=== PATIENT | female | born 1965 | race Caucasian/White ===

== ENCOUNTER 2016-05-05 16:32 | Emergency (ER) | payer OTHER ==
[~2016-05-05] VITALS: Ht 162.6 cm; Wt 76.9 kg
[~2016-05-05 16:32] MED LIST: ATV/1 PO; CLON1TAB3 PO; ESCI10TA17 PO; FENO160T PO; FLNIN NAE; FOLI1TAB7 PO; GABA-113 PO; LAMO150T32 PO; NRN100 PO; TRAZ100T29 PO; VERA120C2 PO; WARF6TAB PO
[2016-05-05 16:36] VITALS: TEMP 36.9; Ht 162.6 cm; Wt 76.9 kg
[2016-05-05] MEDS ORDERED: FLUT0.15 NAE (16:58)
[2016-05-05] MEDS ORDERED: NARA2.5T2 PO (16:58)
[2016-05-05] MEDS ORDERED: METO25TA3 PO (16:58)
--- NOTE | 2016-05-05 17:16 | DIAGNOSTIC IMAGING REPORT ---
RIGHT ANKLE 3 VIEWS CLINICAL HISTORY: Right ankle pain. FINDINGS: 3 views of the right ankle are obtained. No prior studies are available for comparison at the time of dictation. Skeletal structures are well mineralized. No fracture is seen. The ankle mortise is intact. There is a small joint effusion. The overlying soft tissues are within normal limits. IMPRESSION: Small joint effusion. No acute bony abnormality is seen. Electronically signed by: Efra Hatch M.D. 05/05/2016 5:15 PM Dictated Date/Time: 05/05/2016 5:14 PM
--- NOTE | 2016-05-05 17:30 | EMERGENCY ROOM VISIT NOTE ---
History First contact with patient: 16:40 Chief Complaint: ANKLE PAIN Stated Complaint: POSSIBLY SPRAINED ANKLE History of Present Illness The patient is a 50 year old female who presents to the Emergency Room with complaints of right ankle pain. The patient reports that she stepped in a small hole 4 days ago, but did not have any significant discomfort at the time. She reports that the ankle is progressively worsening. She has also noticed swelling about the ankle. 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 The patient does report a prior history of a weak ankle since high school, and injures her ankle frequently. She has not followed up with orthopedics for her ankle. She rates her discomfort a 4 out of 10 with weightbearing. Review of Systems 10 system review was performed and was negative except for pertinent positives and negatives as indicated in history of present illness Past Medical/Surgical History Medical Problems: (1) Anticoagulation goal of INR 2 to 3 (2) Depression (3) Pulmonary embolism (4) Seizure disorder (5) Sinus tachycardia (6) Syncope and collapse Surgical Problems: (1) History of arthroscopic knee surgery (2) History of cholecystectomy (3) Status post partial hysterectomy Family History Cancer Diabetes mellitus FATHER Gallbladder disease Heart disease MOTHER Hypertension MOTHER BROTHER FATHER Social History Smoking Status: Never Smoker Alcohol Use: none Drug Use: none Housing Status: lives with family Occupation Status: unemployed Current/Historical Medications Scheduled Clonazepam (Klonopin), 1 MG PO HS Escitalopram (Lexapro), 30 MG PO DAILY Fenofibrate (Tricor), 160 MG PO DAILY Fluticasone Propionate (Nasal) (Flonase Allergy Relief), 2 SPRAYS LINETTE DAILY Folic Acid (Folvite), 1 MG PO DAILY Gabapentin (Gabapentin), 100 MG PO TID Gabapentin (Neurontin), 300 MG PO TID Lamotrigine (Lamictal), 150 MG PO BID Metoprolol Succ (Toprol Xl) (Toprol-Xl), 25 MG PO DAILY Trazodone Hcl (Trazodone), 200 MG PO HS Warfarin Sodium (Coumadin), 3 MG PO DAILY Scheduled PRN Lorazepam (Ativan), 1 MG PO TID PRN for Anxiety Tramadol (Ultram), 1-2 TAB PO Q4H PRN for Pain Miscellaneous Medications Naratriptan Hcl (Amerge), 2.5 MG PO Allergies Coded Allergies: Cephalexin (Verified Allergy, Unknown, ., 05/05/16) Penicillins (Verified Allergy, Unknown, ., 05/05/16) Sulfa Antibiotics (Verified Allergy, Unknown, Unknown rxn, 05/05/16) Physical Exam Vital Signs Date Time Temp Pulse Resp B/P Pulse Ox O2 Delivery O2 Flow Rate FiO2 05/05/16 16:36 36.9 72 18 125/72 93 Room Air Physical Exam CONSTITUTIONAL: Healthy and well nourished. Alert and oriented X 3 with positive affect. HEENT: Normocephalic, atraumatic. Pupils equal, round and reactive. NECK: Full active range of motion without discomfort. MUSCULOSKELETAL: Examination of the right ankle shows diffuse edema and tenderness over the posterior perineal tendon. Her pain is worsened when standing on her toes. She also has mild discomfort over the posterior tibial tendon as well. Negative anterior draw. No focal tenderness over the dorsal midfoot, metatarsals, phalanges, calcaneus or Achilles tendon. Pedal pulses are intact. INTEGUMENTARY: No rash or other significant dermatologic conditions noted. NEUROLOGIC: Right foot and toes are sensory intact. Medical Decision & Procedures ER Provider Diagnostic Interpretation: My interpretation of right ankle x-rays does not show any acute fractures, dislocation or ankle mortise asymmetry. Radiologist report is as follows: RIGHT ANKLE 3 VIEWS CLINICAL HISTORY: Right ankle pain. FINDINGS: 3 views of the right ankle are obtained. No prior studies are available for comparison at the time of dictation. Skeletal structures are well mineralized. No fracture is seen. The ankle mortise is intact. There is a small joint effusion. The overlying soft tissues are within normal limits. IMPRESSION: Small joint effusion. No acute bony abnormality is seen. ED Course Patient history and physical exam were performed. Nurse's notes were reviewed. The patient refused any analgesics while in the emergency department. An ice pack was applied. X-rays of the right ankle were normal. The patient was advised that her history and clinical exam findings are consistent with a posterior peroneal and tibial tendinitis. She was encouraged to intermittently apply ice to the ankle. A gel splint and crutches were applied. Tylenol as needed for baseline pain relief. The patient was provided a prescription for Ultram as needed for breakthrough pain. The patient has taken Ultram before in the past with good pain relief. The patient was encouraged to follow-up with orthopedics if symptoms are not improving within the next week. The patient was happy with plan of care, voiced understanding of all discharge instructions , and rated her pain a 3 out of 10 at the time of discharge. [facility] Drug Monitoring Program Search Results: patient reviewed within database, no issues identified Impression Primary Impression: Right ankle tendonitis Departure Information Prescriptions Tramadol (Ultram) 50 Mg Tab 1-2 TAB PO Q4H Y for Pain, #20 TAB For Initial Treatment Prov: Mauro Solares PA 05/05/16 Referrals Es Villegas M.D. (PCP) Patient Instructions My [facility]
[2016-05-05] MEDS ORDERED: TRAM-10 PO (17:33)
[2016-05-05 18:13] VITALS: BP 129/73; PULSE 75; O2SAT 95
[2016-05-27] MEDS ORDERED: LVQ750 PO (13:19)
[2016-05-27] MEDS ORDERED: LCTX PO (13:20)
== END 2016-05-05 18:16 | disposition home or self-care (01) ==
LOC: C.EDB 16:33 → C.EDD 18:16
DX: M65.871 Other synovitis and tenosynovitis, right ankle and foot (principal); F32.9 Major depressive disorder, single episode, unspecified; G40.909 Epilepsy, unspecified, not intractable, without status epilepticus; Z90.49 Acquired absence of other specified parts of digestive tract; Z79.01 Long term (current) use of anticoagulants

== ENCOUNTER 2016-05-23 15:57 | Observation (INO) | payer OTHER ==
[~2016-05-23] VITALS: Ht 165.1 cm; Wt 77.6 kg
[~2016-05-23 15:57] MED LIST changes: -FLNIN NAE; +FLUT0.15 NAE; +METO25TA3 PO; +NARA2.5T2 PO; +TRAM-10 PO; -VERA120C2 PO
[2016-05-23 16:39] LABS: BASO % 0.1 %; BASO ABS # 0.01 K/uL (0-0.2); COMPLETE YES; EOS % 1.4 %; HEMATOCRIT 40.1 % (37-47); IG% 0.1 %; LYMPH % 36.6 %; LYMPH ABS # 3.08 K/uL (1.2-3.4); MEAN CELL VOLUME 90.5 fL (80-100); MEAN CORPUSCULAR HEMOGLOBIN 30.9 pg (25-34); MEAN CORPUSCULAR HGB CONC 34.2 g/dl (32-36); MEAN PLATELET VOLUME 9.8 fL (7.4-10.4); MONO % 5.9 %; NEUT % 55.9 %; PLATELET COUNT 387 K/uL (130-400); RED BLOOD COUNT 4.43 M/uL (4.2-5.4); WHITE BLOOD COUNT 8.42 K/uL (4.8-10.8)
--- NOTE | 2016-05-23 16:45 | DIAGNOSTIC IMAGING REPORT ---
CHEST ONE VIEW PORTABLE CLINICAL HISTORY: Atypical chest pain COMPARISON STUDY: 08/29/2015 FINDINGS: The cardiac and mediastinal contours are normal. There is no evidence of focal pulmonary consolidation. There is no evidence of failure. No pleural effusions are visualized.[ IMPRESSION: No active disease in the chest. Electronically signed by: Vazquez Johnson M.D. 05/23/2016 4:44 PM Dictated Date/Time: 05/23/2016 4:44 PM
[2016-05-23 16:46] LABS: ALT/SGPT 26 U/L (12-78); BLOOD UREA NITROGEN 16 mg/dl (7-18); BUN/CREATININE RATIO 16.6 (10-20); CALCIUM 9.6 mg/dl (8.5-10.1); CARBON DIOXIDE 28 mmol/L (21-32); CHLORIDE 103 mmol/L (98-107); CREATININE 0.98 mg/dl (0.60-1.20); GLUCOSE 73 mg/dl (70-99); POTASSIUM 3.9 mmol/L (3.5-5.1); SODIUM 138 mmol/L (136-145)
[2016-05-23 16:47] LABS: AST/SGOT 22 U/L (15-37)
[2016-05-23 16:52] LABS: INR 2.3 (0.9-1.1); PARTIAL THROMBOPLASTIN RATIO 1.4; PROTHROMBIN TIME (PATIENT) 25.3 SECONDS (9.0-12.0)
[2016-05-23 16:56] LABS: PREG INTERNAL NEGATIVE QC NEG CLEAR BACKGROUND; PREG INTERNAL POSITIVE QC POS CONTROL LINE
[2016-05-23 16:58] LABS: ALKALINE PHOSPHATASE 61 U/L (45-117); CKMB/CK RATIO 1.1 (0-3.0)
[2016-05-23] MEDS ORDERED: WARF6TAB5 PO (17:47)
[2016-05-23] MEDS ORDERED: NITROGLYCERIN 0.4 MG SL PER TAB CHARGE SL STA (18:50)
[2016-05-23] MEDS ORDERED: SODIUM CHLORIDE 0.9% 1000ML 1,000 ML IV STA (18:51)
[2016-05-23] MEDS ORDERED: ACETAMINOPHEN 500 MG TAB PO STA (18:51)
[2016-05-23] MEDS ORDERED: CYCLOBENZAPRINE HCL 10 MG TAB PO PRN (19:45)
[2016-05-23] MEDS ORDERED: NON-FORMULARY MEDICATION (Naratriptan Hcl (Amerge) 2.5 MG) PO PRN (19:45)
[2016-05-23] MEDS ORDERED: NITROGLYCERIN 0.4 MG SL PER TAB CHARGE SL PRN (19:45)
[2016-05-23] MEDS ORDERED: ACETAMINOPHEN 325 MG TAB PO PRN (19:45)
[2016-05-23] MEDS ORDERED: ALBUTEROL HFA 8 GM INHALER INH PRN (19:45)
[2016-05-23] MEDS ORDERED: LORAZEPAM 1 MG TAB PO PRN (19:45)
[2016-05-23] MEDS ORDERED: CYCL10TA6 PO (20:04)
[2016-05-23] MEDS ORDERED: FLUT1INH INH (20:04)
[2016-05-23] MEDS ORDERED: ALBUAER INH (20:04)
[2016-05-23] MEDS ORDERED: OMEG10007 PO (20:04)
--- NOTE | 2016-05-23 20:35 | History and Physical ---
History & Physical Date & Time of Service: May 23, 2016 at 20:08 Chief Complaint: Chest Pain Primary Care Physician: Es Villegas M.D. History of Present Illness Source: patient This is a 50 y/o female with PMHx of chronic chest pain, h/o PE on Coumadin, seizures who presents to the ED c/o chest pain that began this afternoon. Pt reports that at noon today she was driving her car when she developed L sided chest pain that she describes as 7/10 "squeezing" pain that radiated to the L neck. Sxs were aggravated with exertion. Her sxs were assoc with diaphoresis and SOB. Pt did not take anything for her sxs and the chest pain persisted for 3.5 hrs before being relieved with nitro in the ED. Pt reports she has had chest pain in the past however this episode was more intense than past episodes. Patient has a FmHx of heart disease with her father having a CABG in his early 60s. Pt has no tobacco use history. After reviewing records, it is noted that patient has chronic chest discomfort. She had a negative cardiac catheterization in February 2015. Pt had an echo in February 2016 which revealed new grade II diastolic dysfunction. Pt was seen by cardiology (Dr. Varela) last month at which point her verapamil was switched to metoprolol. Pt denies fever/chills, palpitations, abd pain, N/V, bowel or bladder issues, LE edema ,calf pain, lightheadedness/dizziness. In the ED, vitals are stable. labs reviewed are unremarkable. Trop is negative and EKG shows no evidence of ischemia. CXR is negative. Pt received nitro on presentation to the ED which relieved her pain however the pain returned. Patient is currently c/o 3/10 chest discomfort. She is stable and will be admitted for further evaluation and treatment. Past Medical/Surgical History Medical Problems: (1) Anticoagulation goal of INR 2 to 3 Status: Chronic (2) Depression Status: Chronic (3) Migraine Status: Chronic (4) Pulmonary embolism Status: Chronic (5) Seizure disorder Status: Chronic (6) Sinus tachycardia Status: Chronic Surgical Problems: (1) History of arthroscopic knee surgery Status: Chronic (2) History of cholecystectomy Status: Chronic (3) Status post partial hysterectomy Status: Chronic Family History Cancer Diabetes mellitus FATHER Gallbladder disease Heart disease MOTHER Hypertension MOTHER BROTHER FATHER Social History Smoking Status: Never Smoker Alcohol Use: none Drug Use: none Immunizations History of Influenza Vaccine: Yes Influenza Vaccine Date: Dec 17, 2013 History of Tetanus Vaccine?: Yes Allergies Coded Allergies: Cephalexin (Verified Allergy, Unknown, ., 05/23/16) Penicillins (Verified Allergy, Unknown, ., 05/23/16) Sulfa Antibiotics (Verified Allergy, Unknown, Unknown rxn, 05/23/16) Home Medications Scheduled Clonazepam (Klonopin), 1 MG PO HS Escitalopram (Lexapro), 30 MG PO DAILY Fenofibrate (Tricor), 160 MG PO DAILY Fish Oil ([place]-3), 1 CAP PO BID Fluticasone Furoate-Vilanterol (Breo Ellipta), 1 DOSE INH DAILY Fluticasone Propionate (Nasal) (Flonase Allergy Relief), 2 SPRAYS LINETTE DAILY Folic Acid (Folvite), 1 MG PO DAILY Gabapentin (Gabapentin), 100 MG PO TID Gabapentin (Neurontin), 300 MG PO TID Lamotrigine (Lamictal), 150 MG PO BID Metoprolol Succ (Toprol Xl) (Toprol-Xl), 25 MG PO DAILY Trazodone Hcl (Trazodone), 200 MG PO HS Warfarin Sod (Jantoven), 6 MG PO WK Warfarin Sodium (Coumadin), 3 MG PO DAILY Scheduled PRN Albuterol Sulfate (Proventil Hfa), 2 PUFFS INH Q4H PRN for SOB/Wheezing Cyclobenzaprine Hcl (Flexeril), 10 MG PO BID PRN for Muscle Spasms Lorazepam (Ativan), 1 MG PO TID PRN for Anxiety Naratriptan Hcl (Amerge), 2.5 MG PO DAILY PRN for Pain Review of Systems Constitutional: No chills, No fatigue, No fever, No sweats, No weakness Eyes: No worsening of vision ENT: No hearing loss Respiratory: + shortness of breath (resolved), No cough, No dyspnea at rest Cardiovascular: + chest pain, No claudication, No edema, No palpitations Abdomen: No constipation, No diarrhea, No nausea, No pain, No vomiting Musculoskeletal: No calf pain, No swelling Genitourinary - Female: No dysuria Neurologic: No weakness Psychiatric: No depression symptoms Endocrine: No fatigue Hematologic / Lymphatic: No abnormal bleeding/bruising Integumentary: No new/changing skin lesions Physical Exam Vital Signs Date Time Temp Pulse Resp B/P Pulse Ox O2 Delivery O2 Flow Rate FiO2 05/23/16 19:29 111/78 05/23/16 19:07 55 16 95 Room Air 05/23/16 18:59 133/83 05/23/16 18:37 60 18 96 05/23/16 18:32 61 18 95 Room Air 05/23/16 18:29 128/81 05/23/16 18:27 59 17 95 Room Air 05/23/16 18:24 125/84 05/23/16 18:22 59 25 95 Room Air 05/23/16 18:17 61 17 94 05/23/16 18:12 58 13 94 05/23/16 18:07 58 14 92 05/23/16 18:02 57 12 94 05/23/16 17:59 120/83 05/23/16 17:57 56 12 93 05/23/16 17:52 57 11 94 05/23/16 17:47 59 19 97 05/23/16 17:42 57 12 93 05/23/16 17:37 59 16 90 05/23/16 17:32 70 23 99 05/23/16 17:29 123/81 05/23/16 17:27 69 26 95 05/23/16 17:22 60 14 97 05/23/16 17:17 58 10 95 05/23/16 17:12 59 17 95 05/23/16 17:07 57 19 94 05/23/16 17:02 57 12 93 05/23/16 16:59 133/82 05/23/16 16:57 58 13 95 05/23/16 16:52 59 13 97 05/23/16 16:47 64 12 94 05/23/16 16:42 74 16 98 05/23/16 16:37 62 16 96 05/23/16 16:32 65 18 97 05/23/16 16:29 133/89 05/23/16 16:27 60 12 93 05/23/16 16:24 100 Room Air 05/23/16 16:22 63 19 95 05/23/16 16:21 100 Room Air 05/23/16 16:18 63 05/23/16 16:17 61 18 97 05/23/16 16:11 134/79 05/23/16 16:04 36.7 89 18 100 Room Air 05/23/16 16:04 99 Room Air 05/23/16 16:04 100 General Appearance: WD/WN, no apparent distress, + pertinent finding (Pt is laying in bed with sister at bedside ) Head: normocephalic, atraumatic Eyes: normal inspection ENT: hearing grossly normal Neck: supple Respiratory/Chest: chest non-tender, lungs clear, normal breath sounds, no respiratory distress Cardiovascular: regular rate, rhythm, no edema, no murmur Abdomen/GI: normal bowel sounds, non tender, soft Back: normal inspection Extremities/Musculoskelatal: normal inspection, no calf tenderness, no pedal edema Neurologic/Psych: alert, normal mood/affect, oriented x 3 Skin: normal color, warm/dry Diagnostics Laboratory Results Results Past 24 Hours Test 05/23/16 16:00 05/23/16 16:26 Range/Units White Blood Count 8.42 4.8-10.8 K/uL Red Blood Count 4.43 4.2-5.4 M/uL Hemoglobin 13.7 12.0-16.0 g/dL Hematocrit 40.1 37-47 % Mean Corpuscular Volume 90.5 80-100 fL Mean Corpuscular Hemoglobin 30.9 25-34 pg Mean Corpuscular Hemoglobin Concent 34.2 32-36 g/dl Platelet Count 387 130-400 K/uL Mean Platelet Volume 9.8 7.4-10.4 fL Neutrophils (%) (Auto) 55.9 % Lymphocytes (%) (Auto) 36.6 % Monocytes (%) (Auto) 5.9 % Eosinophils (%) (Auto) 1.4 % Basophils (%) (Auto) 0.1 % Neutrophils # (Auto) 4.70 1.4-6.5 K/uL Lymphocytes # (Auto) 3.08 1.2-3.4 K/uL Monocytes # (Auto) 0.50 0.11-0.59 K/uL Eosinophils # (Auto) 0.12 0-0.5 K/uL Basophils # (Auto) 0.01 0-0.2 K/uL RDW Standard Deviation 43.7 36.4-46.3 fL RDW Coefficient of Variation 13.2 11.5-14.5 % Immature Granulocyte % (Auto) 0.1 % Immature Granulocyte # (Auto) 0.01 0.00-0.02 K/uL Prothrombin Time 25.3 9.0-12.0 SECONDS Prothromb Time International Ratio 2.3 0.9-1.1 Activated Partial Thromboplast Time 36.5 21.0-31.0 SECONDS Partial Thromboplastin Ratio 1.4 Sodium Level 138 136-145 mmol/L Potassium Level 3.9 3.5-5.1 mmol/L Chloride Level 103 98-107 mmol/L Carbon Dioxide Level 28 21-32 mmol/L Anion Gap 7.0 3-11 mmol/L Blood Urea Nitrogen 16 7-18 mg/dl Creatinine 0.98 0.60-1.20 mg/dl Est Creatinine Clear Calc Drug Dose 77.4 ml/min Estimated GFR () 76.9 Estimated GFR (Non- 66.3 BUN/Creatinine Ratio 16.6 10-20 Random Glucose 73 70-99 mg/dl Calcium Level 9.6 8.5-10.1 mg/dl Total Bilirubin 0.3 0.2-1 mg/dl Direct Bilirubin < 0.1 0-0.2 mg/dl Aspartate Amino Transf (AST/SGOT) 22 15-37 U/L Alanine Aminotransferase (ALT/SGPT) 26 12-78 U/L Alkaline Phosphatase 61 45-117 U/L Total Creatine Kinase 65 26-192 U/L Creatine Kinase MB 0.7 0.5-3.6 ng/ml Creatine Kinase MB Ratio 1.1 0-3.0 Pro-B-Type Natriuretic Peptide 118 0-900 pg/ml Total Protein 8.4 6.4-8.2 gm/dl Albumin 4.2 3.4-5.0 gm/dl Lipase 343 73-393 U/L Human Chorionic Gonadotropin, Qual NEG NEG Bedside D-Dimer 37 0-450 ng/mlFEU Bedside Troponin I 0.000 0-0.045 ng/ml Diagnostic Radiology CXR IMPRESSION: No active disease in the chest. EKG EKG: NSR at 62 bpm with no acute ischemic changed notes; no change when compared to EKG from 08/29/15 Impression Assessment and Plan CHEST PAIN R/O ACS pt presented with chest pain that began this afternoon assoc with diaphoresis and SOB; pt has history of chronic chest pain per records -observation status to telemetry -vitals stable; saturating well on room air -RFs include + FmHx; pt has no tobacco use history -cardiac catheterization 02/2015 no CAD -EKG no acute ischemic changes; repeat EKG PRN chest pain and in AM -Initial troponin is negative; continue to monitor with serial cardiac enzymes q6h -d-dimer negative to r/o PE -echo 02/2016 EF 63 % with grade 2 diastolic dysfunction; will hold off on repeat echo -cont BB and start ASA and high dose statin for plaque stabilization -consider cardio consult if enzymes trend up -pt is currently c/o 06/03 chest discomfort -continue to monitor H/O PE ON COUMADIN -h/o PE 2 years ago -d-dimer negative -INR therapeutic -cont Coumadin H/O PARTIAL SEIZURES -h/o absence seizures with one tonic clonic seizure in 2014; unsure when last seizure was -cont Lamictal -sees [facility] neurology MIGRAINES -currently c/o headache likely due to nitro -hold triptan for now DEPRESSION/ANXIETY -stable -cont Lexapro DVT PROPHYLAXIS -Coumadin CODE STATUS -FULL CODE status DISPO Observation status until further workup is complete. Pt seen in collaboration with Dr. Xavier. Please see her addendum for further details. Thanks! -Of note: patient will be followed by Dr. Rai starting tomorrow AM . ATTENDING ADDENDUM Record reviewed. Patient interviewed and examined. I have examined the patient and agree with the findings above. Care coordinated with Melina Elkins PA-C. Please refer to her documentation for patient's history. Leyda Xavier, DO Hospitalist Resuscitation Status FULL RESUSCITATION VTE Prophylaxis VTE Risk Assessment Done? Y/N: Yes Risk Level: Moderate
[2016-05-23] MEDS ORDERED: ATORVASTATIN 40 MG TAB PO ONE (20:45)
[2016-05-23] MEDS ORDERED: IV FLUIDS COMPLETED PRN (21:00)
[2016-05-23 21:15] VITALS: BP 107/70; PULSE 76; TEMP 36.7; O2SAT 95; Ht 165.1 cm; Wt 77.6 kg
--- NOTE | 2016-05-23 21:33 | EMERGENCY ROOM VISIT NOTE ---
History Report prepared by Rj: Edison Canela Under the Supervision of: Dr. Jossue Cintron M.D. First contact with patient: 16:10 Chief Complaint: CHEST PAIN Stated Complaint: CHEST PAIN Nursing Triage Summary: driving home from applying for ssi, had chest pain sharp then achy, went to her mothers house, took a nap. pain left then returned when woke up. speech, movements slow. wearing a walking boot right lower leg History of Present Illness The patient is a 50 year old female who presents to the Emergency Room with complaints of an on and off sharp chest pain starting around 1200 today. The patient states that it started in the center of her chest, and it is currently under her left breast. The patient additionally is complaining of shortness of breath. She states that she has never had chest pain like this before, and she states that she has a history of blood clots in her lungs and diastolic dysfunction. She also states that she was having some abdominal pain last week however it has improved. The patient additionally complains of occasional left foot cramping. The patient denies any smoking. She states that her father had a CABG. She additionally states that she had a walking boot on her right leg due to a sprained ankle. She states that she is currently taking warfarin. Pt denies LOC, headache, fevers, chills, diaphoresis, visual changes, neck pain, nausea, vomiting, back pain, melena, hematochezia, urinary symptoms, numbness, weakness, lymphadenopathy, rash, or other complaints. Source of History: patient Onset: 1200 Position: chest (left) Quality: sharp Timing: other (on and off) Associated Symptoms: + SOB, + abdominal pain Review of Systems See HPI for pertinent positives and negatives. A total of ten systems were reviewed and were otherwise negative. Past Medical & Surgical Medical Problems: (1) Anticoagulation goal of INR 2 to 3 (2) Depression (3) Migraine (4) Pulmonary embolism (5) Seizure disorder (6) Sinus tachycardia Surgical Problems: (1) History of arthroscopic knee surgery (2) History of cholecystectomy (3) Status post partial hysterectomy Family History Cancer Diabetes mellitus FATHER Gallbladder disease Heart disease MOTHER Hypertension MOTHER BROTHER FATHER Social History Smoking Status: Unknown if Ever Smoked Alcohol Use: none Drug Use: none Housing Status: lives with family Occupation Status: unemployed Current/Historical Medications Scheduled Clonazepam (Klonopin), 1 MG PO HS Escitalopram (Lexapro), 30 MG PO DAILY Fenofibrate (Tricor), 160 MG PO DAILY Fish Oil ([place]-3), 1 CAP PO BID Fluticasone Furoate-Vilanterol (Breo Ellipta), 1 DOSE INH DAILY Fluticasone Propionate (Nasal) (Flonase Allergy Relief), 2 SPRAYS LINETTE DAILY Folic Acid (Folvite), 1 MG PO DAILY Gabapentin (Gabapentin), 100 MG PO TID Gabapentin (Neurontin), 300 MG PO TID Lamotrigine (Lamictal), 150 MG PO BID Metoprolol Succ (Toprol Xl) (Toprol-Xl), 25 MG PO DAILY Trazodone Hcl (Trazodone), 200 MG PO HS Warfarin Sod (Jantoven), 6 MG PO WK Warfarin Sodium (Coumadin), 3 MG PO DAILY Scheduled PRN Albuterol Sulfate (Proventil Hfa), 2 PUFFS INH Q4H PRN for SOB/Wheezing Cyclobenzaprine Hcl (Flexeril), 10 MG PO BID PRN for Muscle Spasms Lorazepam (Ativan), 1 MG PO TID PRN for Anxiety Naratriptan Hcl (Amerge), 2.5 MG PO DAILY PRN for Pain Allergies Coded Allergies: Cephalexin (Verified Allergy, Unknown, ., 05/23/16) Penicillins (Verified Allergy, Unknown, ., 05/23/16) Sulfa Antibiotics (Verified Allergy, Unknown, Unknown rxn, 05/23/16) Physical Exam Vital Signs Date Time Temp Pulse Resp B/P Pulse Ox O2 Delivery O2 Flow Rate FiO2 05/23/16 19:39 62 15 93 05/23/16 19:34 69 16 94 05/23/16 19:29 111/78 05/23/16 19:07 55 16 95 Room Air 05/23/16 18:59 133/83 05/23/16 18:37 60 18 96 05/23/16 18:32 61 18 95 Room Air 05/23/16 18:29 128/81 05/23/16 18:27 59 17 95 Room Air 05/23/16 18:24 125/84 05/23/16 18:22 59 25 95 Room Air 05/23/16 18:17 61 17 94 05/23/16 18:12 58 13 94 05/23/16 18:07 58 14 92 05/23/16 18:02 57 12 94 05/23/16 17:59 120/83 05/23/16 17:57 56 12 93 05/23/16 17:52 57 11 94 05/23/16 17:47 59 19 97 05/23/16 17:42 57 12 93 05/23/16 17:37 59 16 90 05/23/16 17:32 70 23 99 05/23/16 17:29 123/81 05/23/16 17:27 69 26 95 05/23/16 17:22 60 14 97 05/23/16 17:17 58 10 95 05/23/16 17:12 59 17 95 05/23/16 17:07 57 19 94 05/23/16 17:02 57 12 93 05/23/16 16:59 133/82 05/23/16 16:57 58 13 95 05/23/16 16:52 59 13 97 05/23/16 16:47 64 12 94 05/23/16 16:42 74 16 98 05/23/16 16:37 62 16 96 05/23/16 16:32 65 18 97 05/23/16 16:29 133/89 05/23/16 16:27 60 12 93 05/23/16 16:24 100 Room Air 05/23/16 16:22 63 19 95 05/23/16 16:21 100 Room Air 05/23/16 16:18 63 05/23/16 16:17 61 18 97 05/23/16 16:11 134/79 05/23/16 16:04 36.7 89 18 100 Room Air 05/23/16 16:04 99 Room Air 05/23/16 16:04 100 Physical Exam GENERAL: Awake, alert, well-appearing, in no distress HENT: Normocephalic, atraumatic. Oropharynx unremarkable. EYES: Normal conjunctiva. Sclera non-icteric. NECK: Supple. No nuchal rigidity. FROM. No JVD. RESPIRATORY: Clear to auscultation. CARDIAC: Regular rate, normal rhythm. Extremities warm and well perfused. Pulses equal. ABDOMEN: Soft, non-distended. No tenderness to palpation. No rebound or guarding. No masses. RECTAL: Deferred. MUSCULOSKELETAL: Chest examination reveals no tenderness. The back is symmetrical on inspection without obvious abnormality. There is no CVA tenderness to palpation. No joint edema. LOWER EXTREMITIES: Calves are equal size bilaterally and non-tender. No edema. No discoloration. NEURO: Normal sensorium. No sensory or motor deficits noted. SKIN: No rash or jaundice noted. Medical Decision & Procedures ER Provider Diagnostic Interpretation: X-ray: Per my interpretation, radiologist review. CHEST ONE VIEW PORTABLE CLINICAL HISTORY: Atypical chest pain COMPARISON STUDY: 08/29/2015 FINDINGS: The cardiac and mediastinal contours are normal. There is no evidence of focal pulmonary consolidation. There is no evidence of failure. No pleural effusions are visualized.[ IMPRESSION: No active disease in the chest. Electronically signed by: Vazquez Johnson M.D. 05/23/2016 4:44 PM Dictated Date/Time: 05/23/2016 4:44 PM Laboratory Results 05/23/16 16:00 Red Blood Count 4.43, Mean Corpuscular Volume 90.5, Mean Corpuscular Hemoglobin 30.9, Mean Corpuscular Hemoglobin Concent 34.2, Mean Platelet Volume 9.8, Neutrophils (%) (Auto) 55.9, Lymphocytes (%) (Auto) 36.6, Monocytes (%) (Auto) 5.9, Eosinophils (%) (Auto) 1.4, Basophils (%) (Auto) 0.1, Neutrophils # (Auto) 4.70, Lymphocytes # (Auto) 3.08, Monocytes # (Auto) 0.50, Eosinophils # (Auto) 0.12, Basophils # (Auto) 0.01 05/23/16 16:00 Test 05/23/16 16:00 05/23/16 16:26 White Blood Count 8.42 K/uL (4.8-10.8) Red Blood Count 4.43 M/uL (4.2-5.4) Hemoglobin 13.7 g/dL (12.0-16.0) Hematocrit 40.1 % (37-47) Mean Corpuscular Volume 90.5 fL (80-100) Mean Corpuscular Hemoglobin 30.9 pg (25-34) Mean Corpuscular Hemoglobin Concent 34.2 g/dl (32-36) Platelet Count 387 K/uL (130-400) Mean Platelet Volume 9.8 fL (7.4-10.4) Neutrophils (%) (Auto) 55.9 % Lymphocytes (%) (Auto) 36.6 % Monocytes (%) (Auto) 5.9 % Eosinophils (%) (Auto) 1.4 % Basophils (%) (Auto) 0.1 % Neutrophils # (Auto) 4.70 K/uL (1.4-6.5) Lymphocytes # (Auto) 3.08 K/uL (1.2-3.4) Monocytes # (Auto) 0.50 K/uL (0.11-0.59) Eosinophils # (Auto) 0.12 K/uL (0-0.5) Basophils # (Auto) 0.01 K/uL (0-0.2) RDW Standard Deviation 43.7 fL (36.4-46.3) RDW Coefficient of Variation 13.2 % (11.5-14.5) Immature Granulocyte % (Auto) 0.1 % Immature Granulocyte # (Auto) 0.01 K/uL (0.00-0.02) Prothrombin Time 25.3 SECONDS (9.0-12.0) Prothromb Time International Ratio 2.3 (0.9-1.1) Activated Partial Thromboplast Time 36.5 SECONDS (21.0-31.0) Partial Thromboplastin Ratio 1.4 Anion Gap 7.0 mmol/L (3-11) Est Creatinine Clear Calc Drug Dose 77.4 ml/min Estimated GFR () 76.9 Estimated GFR (Non- 66.3 BUN/Creatinine Ratio 16.6 (10-20) Calcium Level 9.6 mg/dl (8.5-10.1) Total Bilirubin 0.3 mg/dl (0.2-1) Direct Bilirubin < 0.1 mg/dl (0-0.2) Aspartate Amino Transf (AST/SGOT) 22 U/L (15-37) Alanine Aminotransferase (ALT/SGPT) 26 U/L (12-78) Alkaline Phosphatase 61 U/L (45-117) Total Creatine Kinase 65 U/L (26-192) Creatine Kinase MB 0.7 ng/ml (0.5-3.6) Creatine Kinase MB Ratio 1.1 (0-3.0) Pro-B-Type Natriuretic Peptide 118 pg/ml (0-900) Total Protein 8.4 gm/dl (6.4-8.2) Albumin 4.2 gm/dl (3.4-5.0) Lipase 343 U/L (73-393) Human Chorionic Gonadotropin, Qual NEG (NEG) Bedside D-Dimer 37 ng/mlFEU (0-450) Bedside Troponin I 0.000 ng/ml (0-0.045) Laboratory results reviewed by me Medications Administered Medications (Trade) Dose Ordered Sig/Raz Route Start Time Stop Time Status Last Admin Dose Admin Nitroglycerin 0.4 mg 0.4 mg NOW STAT SL 05/23/16 18:50 05/23/16 18:51 DC 05/23/16 19:19 0.4 MG Sodium Chloride (Nss 1000ml) 1,000 ml @ 125 mls/hr Q8H STAT IV 05/23/16 18:51 05/24/16 02:50 05/23/16 19:20 125 MLS/HR Acetaminophen (Tylenol Tab) 1,000 mg NOW STAT PO 05/23/16 18:51 05/23/16 18:52 DC 05/23/16 19:19 1,000 MG ECG Indication: chest pain Rate (beats per minute): 62 Rhythm: normal sinus Findings: no acute ischemic change, no ectopy ED Course 1638: The patient was evaluated in room B9. A complete history and physical exam was performed. 1849: I reevaluated the patient, and she was resting. 1850: Nitrostat Tab 0.4mg SL 1851: Tylenol Tab 1000mg PO, Sodium Chloride 1000 ml @ 125 mls/hr IV 1855: I discussed the patient's case with Melina Palencia PA-C. She is going to evaluate the patient for further treatment Medical Decision Triage Nursing notes reviewed. The patient's presentation and history were concerning for chest pain. Etiologies such as cardiac ischemia, aortic dissection, pulmonary embolism, pneumonia, pneumothorax, musculoskeletal, infections, gastrointestinal, as well as others were entertained. The patient was evaluated. She had left-sided chest pain. ECG was unremarkable. Her d-dimer and troponin were negative. The patient was therapeutic on her INR. Remainder of her blood work was unremarkable. The patient was noting a little bit of headache she was given Tylenol. Nitroglycerin was also given. Patient was given aspirin due to her warfarin use. With her family history I discuss further management in the hospital of this chest pain. The patient was in agreement. Internal medicine was consulted. The patient was evaluated in the Emergency Room for further management. The chart was completed utilizing [employer] Speech voice recognition software. Grammatical errors, random word insertions, pronoun errors, and incomplete sentences are an occasional consequence of this system due to software limitations, ambient noise, and hardware issues. Any formal questions or concerns about the content, text, or information contained within the body of this dictation should be directly addressed to the physician for clarification. Consults Time Called: 1849 Consulting Physician: Melina Palencia PA-C Returned Call: 1854 I discussed the patient's case with Melina Palencia PA-C. She is going to evaluate the patient for further treatment Impression Primary Impression: Left sided chest pain Scribe Attestation The scribe's documentation has been prepared under my direction and personally reviewed by me in its entirety. I confirm that the note above accurately reflects all work, treatment, procedures, and medical decision making performed by me. Departure Information Dispostion Being Evaluated By Hospitalist Es Meade M.D. (PCP)
[2016-05-23] MEDS ORDERED: ASPIRIN 81 MG CHEW PO ONE (22:00)
[2016-05-23] MEDS: GABAPENTIN 100 MG CAP PO SCH (22:51)
[2016-05-23] MEDS: GABAPENTIN 300 MG CAP PO SCH (22:52)
[2016-05-23] MEDS: OMEGA-3 (PURIFIED FISH OIL) 1 GM CAP PO SCH (22:52)
[2016-05-23] MEDS: TRAZODONE HCL 100 MG TAB PO SCH (22:54)
[2016-05-23] MEDS: CLONAZEPAM 1 MG TAB PO SCH (22:58)
[2016-05-23 23:15] VITALS: BP 104/64; TEMP 36.7; O2SAT 94
[2016-05-24] VITALS (9 sets, daily range): BP systolic 91–115; BP diastolic 58–72; PULSE 61–79; TEMP 36.3–36.8; O2SAT 90–96
[2016-05-24 05:02] LABS: HEMATOCRIT 35.5 % (37-47); MEAN CELL VOLUME 89.9 fL (80-100); MEAN CORPUSCULAR HEMOGLOBIN 30.1 pg (25-34); MEAN CORPUSCULAR HGB CONC 33.5 g/dl (32-36); MEAN PLATELET VOLUME 9.3 fL (7.4-10.4); PLATELET COUNT 334 K/uL (130-400); RED BLOOD COUNT 3.95 M/uL (4.2-5.4)
[2016-05-24 05:13] LABS: INR 2.3 (0.9-1.1); PROTHROMBIN TIME (PATIENT) 25.4 SECONDS (9.0-12.0)
[2016-05-24 06:07] LABS: BLOOD UREA NITROGEN 22 mg/dl (7-18); BUN/CREATININE RATIO 20.4 (10-20); CALCIUM 8.7 mg/dl (8.5-10.1); CARBON DIOXIDE 28 mmol/L (21-32); CHLORIDE 110 mmol/L (98-107); GLUCOSE 88 mg/dl (70-99); POTASSIUM 4.1 mmol/L (3.5-5.1); SODIUM 146 mmol/L (136-145)
[2016-05-24] MEDS: BREO-ELLIPTA~ORDER AWAITING ACTION SCH ×3 (07:44→23:02)
[2016-05-24] MEDS: METOPROLOL SUCC 25MG EXT REL TAB PO SCH (09:00)
[2016-05-24] MEDS: OMEGA-3 (PURIFIED FISH OIL) 1 GM CAP PO SCH ×2 (09:16→20:24)
[2016-05-24] MEDS: GABAPENTIN 100 MG CAP PO SCH ×3 (09:16→20:27)
[2016-05-24] MEDS: ASPIRIN 81 MG ECTAB PO SCH (09:17)
[2016-05-24] MEDS: ESCITALOPRAM OXALATE 10 MG TAB PO SCH (09:17)
[2016-05-24] MEDS: FLUTICASONE PROPIONATE NA SPR 16 GM BTL NAE SCH (09:18)
[2016-05-24] MEDS: GABAPENTIN 300 MG CAP PO SCH ×3 (09:18→20:24)
[2016-05-24] MEDS: ONDANSETRON INJ 2 MG/ML 2 ML VIAL IV PRN (10:17)
[2016-05-24] MEDS: MoRPHine SULFATE 2 MG/ML CARP IV PRN (10:23)
[2016-05-24] MEDS ORDERED: SODIUM CHLORIDE 0.9% 500ML 500 ML IV ONE (10:30)
[2016-05-24] MEDS: SODIUM CHLORIDE 0.9% 1000ML 1,000 ML IV SCH (10:50)
[2016-05-24] MEDS: AZTREONAM IV 1,000 MG in DEXTROSE 5% 100ML 100 ML IV SCH ×2 (11:51→18:40)
[2016-05-24 12:18] LABS: URINE APPEARANCE CLEAR (CLEAR); URINE BILIRUBIN NEG (NEG); URINE COLOR YELLOW; URINE EPITHELIAL CELL AUTO 20-30 /lpf (0-5); URINE NITRITE NEG (NEG); URINE PH 7.5 (4.5-7.5); UROBILINOGEN NEG (NEG); ZZUR CULT IF INDIC CLEAN CATCH NO
[2016-05-24 12:20] LABS: MANUAL MICROSCOPIC REQUIRED? NO; REVIEW REQ? NO
--- NOTE | 2016-05-24 15:28 | Cardiology Consultation ---
Cardiology Consultation Date of Service May 24, 2016. (Rosey Aj, ALPA) Cardiology Consultation Cardiology Consultation: Date: 05/24/16 Attending [employer] Worker: Dr. Jensen Requesting Physician: Dr. Hernadez HPI: Patient is a 50-year-old female whose history is notable for: 1. Prior history of pulmonary embolus July of 2014 with negative hypercoagulation workup. On chronic coumadin. 2. History of chronic sinus tachycardia with diastolic LV dysfunction. 3. Low HDL, dyslipidemia. 4. Diagnostic cardiac catheterization without obstructive coronary disease, February 2015. Patient presented to [facility] by ambulance yesterday afternoon with complaints of left-sided sharp stabbing chest pain particularly underneath her left breast. Symptoms occurred while she was driving. Patient admits to a lot of emotional stressors recently. Symptoms lasted several hours and family called 911. she was treated with sublingual nitro without improvement. She believes her morphine has aided her discomfort. Symptoms are not related to exertional activities. No associated shortness of breath, palpitations, dizziness. She admits to nausea improved with Zofran. Upon review of her chart she has a long history of presumed noncardiac chest pain with prior cardiac catheterization in 2014 without obstructive coronary disease. She most recently had an echocardiogram in February, which demonstrated normal LV function with grade 2 diastolic dysfunction and no significant valvular pathology. At her most recent office visit with Dr. Varela verapamil was discontinued and Toprol initiated for heart rate support. Currently she describes left-sided chest discomfort rated 2/10. Cardiac enzymes have been unremarkable x3. EKG unremarkable without ischemic changes. No complaints of SOB, diaphoresis, nausea, palpitations, orthopnea, PND or edema. Notes ongoing cough. no fever or chills. PMH: 1. Anxiety 2. depression 3. Diastolic dysfunction 4. Sinus tachycardia 5. Dyslipidemia 6. history of pulmonary embolus in 2014 with negative hypercoagulable workup. On chronic Coumadin. 7. history of noncardiac chest pain with normal cardiac catheterization in February,. PAST SURGICAL HISTORY: Notable for prior arthroscopic knee surgery, cholecystectomy, partial hysterectomy. FAMILY HISTORY: Positive for heart disease in mother, hypertension mother, brother and father. SOCIAL HISTORY: The patient is a nonsmoker, nondrinker. ALLERGIES: Review of patient's allergies indicates: Allergen Reactions Cephalexin Rash trunk arms Penicillins Hives Sulfa Antibiotics Hives MEDICATIONS: Reported Home Medications Medications Dose Route/Sig Max Daily Dose Days Date Category Dose Instructions Jantoven (Warfarin Sodium) 6 Mg Tab 6 Mg PO WK 05/23/16 Reported TAKE 6MG ON MONDAY Flonase Allergy Relief (Fluticasone Propionate (Nasal)) 50 Mcg/Act Spr 2 Sprays LINETTE DAILY 05/05/16 Reported Toprol-Xl (Metoprolol Succinate) 25 Mg Tabcr 25 Mg PO DAILY 05/05/16 Reported Amerge (Naratriptan Hcl) 2.5 Mg Tab 2.5 Mg PO DAILY PRN 05/05/16 Reported Neurontin (Gabapentin) 300 Mg Cap 300 Mg PO TID 08/29/15 Reported WITH 100MG CAPS TO GET DOSE OF 400MG Gabapentin 100 Mg Cap 100 Mg PO TID 01/27/15 Reported WITH 300MG CAPS TO GET DOSE OF 400MG Coumadin (Warfarin Sodium) 6 Mg Tab 3 Mg PO DAILY 09/19/14 Reported TAKE 3MG EVERYDAY EXCEPT MONDAY Folvite (Folic Acid) 1 Mg Tab 1 Mg PO DAILY 09/19/14 Reported Tricor (Fenofibrate) 160 Mg Tab 160 Mg PO DAILY 09/19/14 Reported Lexapro (Escitalopram Oxalate) 10 Mg Tab 30 Mg PO DAILY 09/19/14 Reported 3 TABLET DOSE Lamictal (Lamotrigine) 150 Mg Tab 150 Mg PO BID 08/15/13 Reported Ativan (Lorazepam) 1 Mg Tab 1 Mg PO TID PRN 04/23/13 Reported Trazodone (Trazodone HCl) 100 Mg Tab 200 Mg PO HS 04/23/13 Reported Klonopin (Clonazepam) 1 Mg Tab 1 Mg PO HS 04/23/13 Reported PHYSICAL EXAMINATION: Last 8 Hrs Date Time Temp Pulse Resp B/P Pulse Ox O2 Delivery O2 Flow Rate FiO2 05/24/16 11:15 36.8 70 18 115/72 96 Room Air 05/24/16 09:20 79 96/59 05/24/16 08:00 92 Room Air Gen: A+Ox3. NAD. Anxious. HEENT exam is normocephalic and atraumatic. Nares without discharge. Throat was clear. Neck was supple without thyromegaly, lymphadenopathy, jugular venous distention, or bruit. Lungs are clear to auscultation. Cardiovascular exam is regular with normal S-1, S-2. No murmur, gallop, or rub. Abdomen was soft, nontender. Extremities without cyanosis or clubbing. There is no peripheral edema. DATA: EKG on admission: Normal sinus rhythm, no ischemic changes. Normal EKG Repeat EKG's reviewed in detail - NSR without ischemic changes Telemetry reviewed - NSR without arrhythmias. Echocardiogram reviewed, dated 03/10/16 at [facility]: The primary indication after review was deemed appropriate and the examination was performed. Normal LV chamber size and wall thickness. Normal LV systolic function without regional wall motion abnormality. Calculated LV ejection Fraction = 63% (biplane method of discs). Grade II diastolic dysfunction. No significant valvular pathology. Last 24 Hours Test 05/23/16 16:00 05/23/16 16:26 05/23/16 22:27 05/24/16 04:30 White Blood Count 8.42 K/uL Red Blood Count 4.43 M/uL Hemoglobin 13.7 g/dL Hematocrit 40.1 % Mean Corpuscular Volume 90.5 fL Mean Corpuscular Hemoglobin 30.9 pg Mean Corpuscular Hemoglobin Concent 34.2 g/dl Platelet Count 387 K/uL Mean Platelet Volume 9.8 fL Neutrophils (%) (Auto) 55.9 % Lymphocytes (%) (Auto) 36.6 % Monocytes (%) (Auto) 5.9 % Eosinophils (%) (Auto) 1.4 % Basophils (%) (Auto) 0.1 % Neutrophils # (Auto) 4.70 K/uL Lymphocytes # (Auto) 3.08 K/uL Monocytes # (Auto) 0.50 K/uL Eosinophils # (Auto) 0.12 K/uL Basophils # (Auto) 0.01 K/uL RDW Standard Deviation 43.7 fL RDW Coefficient of Variation 13.2 % Immature Granulocyte % (Auto) 0.1 % Immature Granulocyte # (Auto) 0.01 K/uL Prothrombin Time 25.3 SECONDS Prothromb Time International Ratio 2.3 Activated Partial Thromboplast Time 36.5 SECONDS Partial Thromboplastin Ratio 1.4 Sodium Level 138 mmol/L Potassium Level 3.9 mmol/L Chloride Level 103 mmol/L Carbon Dioxide Level 28 mmol/L Anion Gap 7.0 mmol/L Blood Urea Nitrogen 16 mg/dl Creatinine 0.98 mg/dl Est Creatinine Clear Calc Drug Dose 77.4 ml/min Estimated GFR () 76.9 Estimated GFR (Non- 66.3 BUN/Creatinine Ratio 16.6 Random Glucose 73 mg/dl Calcium Level 9.6 mg/dl Total Bilirubin 0.3 mg/dl Direct Bilirubin < 0.1 mg/dl Aspartate Amino Transf (AST/SGOT) 22 U/L Alanine Aminotransferase (ALT/SGPT) 26 U/L Alkaline Phosphatase 61 U/L Total Creatine Kinase 65 U/L Creatine Kinase MB 0.7 ng/ml < 0.5 ng/ml Creatine Kinase MB Ratio 1.1 Pro-B-Type Natriuretic Peptide 118 pg/ml Total Protein 8.4 gm/dl Albumin 4.2 gm/dl Lipase 343 U/L Human Chorionic Gonadotropin, Qual NEG Bedside D-Dimer 37 ng/mlFEU Bedside Troponin I 0.000 ng/ml Troponin I < 0.015 ng/ml Test 05/24/16 04:37 05/24/16 12:00 05/24/16 15:15 White Blood Count 4.80 K/uL Red Blood Count 3.95 M/uL Hemoglobin 11.9 g/dL Hematocrit 35.5 % Mean Corpuscular Volume 89.9 fL Mean Corpuscular Hemoglobin 30.1 pg Mean Corpuscular Hemoglobin Concent 33.5 g/dl RDW Standard Deviation 43.6 fL RDW Coefficient of Variation 13.2 % Platelet Count 334 K/uL Mean Platelet Volume 9.3 fL Prothrombin Time 25.4 SECONDS Prothromb Time International Ratio 2.3 Sodium Level 146 mmol/L Potassium Level 4.1 mmol/L Chloride Level 110 mmol/L Carbon Dioxide Level 28 mmol/L Anion Gap 8.0 mmol/L Blood Urea Nitrogen 22 mg/dl Creatinine 1.10 mg/dl Est Creatinine Clear Calc Drug Dose 60.8 ml/min Estimated GFR () 66.8 Estimated GFR (Non- 57.7 BUN/Creatinine Ratio 20.4 Random Glucose 88 mg/dl Calcium Level 8.7 mg/dl Creatine Kinase MB < 0.5 ng/ml Troponin I < 0.015 ng/ml Urine Color YELLOW Urine Appearance CLEAR Urine pH 7.5 Urine Specific [place] 1.010 Urine Protein NEG Urine Glucose (UA) NEG Urine Ketones NEG Urine Occult Blood 1+ Urine Nitrite NEG Urine Bilirubin NEG Urine Urobilinogen NEG Urine Leukocyte Esterase TRACE Urine WBC (Auto) 1-5 /hpf Urine RBC (Auto) 5-10 /hpf Urine Hyaline Casts (Auto) 0 /lpf Urine Epithelial Cells (Auto) 20-30 /lpf Urine Bacteria (Auto) NEG Lactic Acid Level 0.7 mmol/L IMPRESSION: 50-year-old female 1. Atypical chest pain -long history of non cardiac chest pain, similar in nature. Normal cardiac cath in 2015. -negative cardiac enzymes x3 -serial Non ischemic EKG despite persistent symptoms. -echo pending 2. Sinus tachycardia - controlled on low dose metoprolol 3. History of PE - negative D.Dimer. Therapeutic INR. Continue coumadin. 4. Diastolic dysfunction - no clinical sings of acute diastolic HF Further recommendations pending review of echo. Symptoms suggest non cardiac etiology. Case discussed with Dr. Jensen. Will follow. (Rosey Aj PA-C) Cardiology attending physician: Patient seen and examined at the bedside. Describes a sharp stabbing left- sided chest discomfort which began yesterday while driving. The pain was quite severe initially and has waxed and waned over the past 24 hours. The pain became more severe when EMS arrived and she became quite anxious. Admits to having a panic attack at that time. Denies palpitations, lightheadedness, dizziness, syncopal or near-syncope. There is a history of chest discomfort previously evaluated with cardiac catheterization in 2015. That study demonstrated normal coronary arteries. She was most recently evaluated by cardiology last month. Initial testing including ECG, cardiac enzymes, telemetry, and chest x-ray are unremarkable. Takes chronic anticoagulation for history of pulmonary embolus. Her INR is therapeutic on admission. D-dimer is negative. Discomfort relieved with intravenous morphine. Offers no other complaints this time. Family is at bedside. PE:VSS, GEN: NAD, AAO x 3, Neck: No JVD, No carotid bruit. Heart: Regular rhythm, normal S1 and S2, no murmur, rub, gallop. Lungs: Clear bilateral, no rales, rhonchi, or wheeze. ABD: Soft, nontender, nondistended, normal bowel sounds. EXT: Skin is warm and dry, no clubbing, cyanosis, or edema. A/P: Agree with above PAC history, physical exam, assessment and plan. Patient admitted with atypical chest discomfort. Initial evaluation negative including cardiac enzymes, ECG, telemetry, and chest x-ray. Resting 2-D transthoracic echo is pending at this time. Further recommendations pending review. Thank you for allow me to take part in the care of your patient. Dennis Jensen DO, FACC (Nacho Jensen DO)
[2016-05-24] MEDS ORDERED: WARFARIN SOD 6 MG TAB PO SCH (16:00)
[2016-05-24] MEDS: ACETAMINOPHEN IV 650 MG in EMPTY BAG 0 ML IV PRN (16:20)
--- NOTE | 2016-05-24 16:50 | ECHOCARDIOGRAM REPORT ---
*NOTICE TO RECEIVING [facility] [facility] This information is strictly Confidential and protected under [place] law. [place] law prohibits you from making any further disclosure of this information unless further disclosure is expressly permitted by the written consent of the person to whom it pertains or is authorized by law. A general authorization for the release of medical or other information is not sufficient for this purpose. Hospital accepts no responsibility if the information is made available to any other person, INCLUDING THE PATIENT. Interpretation Summary * Name: JEFF ASINZ Study Date: 05/24/2016 04:05 PM BP: 115/72 mmHg * Patient Location: .[facility]\S\N281\S\2 HR: 70 * : 1965 (M/d/yyyy) Gender: Female Height: 65 in * Age: 50 yrs Ethnicity: [place] Weight: 166 lb * Ordering Physician: Nacho Jensen * Referring Physician: Self, Referred * Performed By: Estefania Tafoya RDCS * * Reason For Study: CHEST PAIN * BSA: 1.8 m2 * History: CHEST PAIN * The study was technically adequate. * Compared to prior study, there is no significant change. * -- Conclusions -- * Left ventricular systolic function is normal. * Ejection Fraction = 60-65%. * There is mild tricuspid regurgitation. * Doppler findings do not suggest pulmonary hypertension. * Grade I diastolic dysfunction, (abnormal relaxation pattern). Procedure Details * A contrast injection of Definity was performed to improve assessment of LV function. * Contrast was injected into an intravenous site in the left arm. * One vial of Definity ultrasound contrast was diluted in normal saline to a total volume of 10 ml. A total of '2' ml of solution was administered during imaging. * Lot # [id number] of Definity utilized for procedure. * Expiration date APR 13. * A complete two-dimensional transthoracic echocardiogram was performed (2D, M-mode, Doppler and color flow Doppler). Left Ventricle * The left ventricle is normal in size. * There is no thrombus. * There is normal left ventricular wall thickness. * Ejection Fraction = 60-65%. * Left ventricular systolic function is normal. * The left ventricular wall motion is normal. Right Ventricle * The right ventricle is normal size. * The right ventricular systolic function is normal as assessed by tricuspid annular plane systolic excursion (TAPSE) (normal >1.5 cm). Atria * The left atrial size is normal. * Right atrial size is normal. * There is no evidence of atrial septal defect, but resolution does not allow assessment for a patent foramen ovale. Mitral Valve * The mitral valve is normal. * There is no mitral valve stenosis. * Significant mitral regurgitation is absent. Tricuspid Valve * The tricuspid valve is normal. * There is no tricuspid stenosis. * There is mild tricuspid regurgitation. * Doppler findings do not suggest pulmonary hypertension. Aortic Valve * The aortic valve is trileaflet. * Aortic stenosis is absent. * There is no significant aortic regurgitation. Pulmonic Valve * The pulmonary valve is inadequately visualized, but the Doppler data is adequate for interpretation. * There is no pulmonic valvular stenosis. * Mild pulmonic valvular regurgitation. Great Vessels * The aortic root and proximal ascending aorta are normal sized. Pericardium/Pleural * There is no pericardial effusion. Great Vessels * Normal inferior vena cava diameter and respiratory variation suggests normal central venous pressure. Left Ventricular Diastolic Function * Grade I diastolic dysfunction, (abnormal relaxation pattern). MMode 2D Measurements and Calculations IVSd 0.81 cm IVSs 1.4 cm LVIDd 4.3 cm LVIDs 3.0 cm LVPWd 1.1 cm LVPWs 1.4 cm IVS/LVPW 0.73 FS 30.7 % EDV(Teich) 82.2 ml ESV(Teich) 34.1 ml EF(Teich) 58.5 % EDV(cubed) 78.5 ml ESV(cubed) 26.1 ml EF(cubed) 66.7 % % IVS thick 67.8 % % LVPW thick 25.7 % LV mass(C)d 134.5 grams LV mass(C)dI 73.6 grams/m\S\2 LV mass(C)s 135.6 grams LV mass(C)sI 74.2 grams/m\S\2 SV(Teich) 48.1 ml SI(Teich) 26.3 ml/m\S\2 SV(cubed) 52.4 ml SI(cubed) 28.6 ml/m\S\2 Ao root diam 3.1 cm Ao root area 7.3 cm\S\2 LA dimension 3.4 cm LA/Ao 1.1 LVAd ap4 27.8 cm\S\2 LVLd ap4 8.1 cm EDV(MOD-sp4) 78.0 ml EDV(sp4-el) 80.7 ml LVAs ap4 14.7 cm\S\2 LVLs ap4 6.5 cm ESV(MOD-sp4) 28.0 ml ESV(sp4-el) 28.1 ml EF(MOD-sp4) 64.1 % EF(sp4-el) 65.2 % LVAd ap2 30.7 cm\S\2 LVLd ap2 8.1 cm EDV(MOD-sp2) 96.8 ml EDV(sp2-el) 98.6 ml LVAs ap2 16.3 cm\S\2 LVLs ap2 6.7 cm ESV(MOD-sp2) 34.7 ml ESV(sp2-el) 33.7 ml EF(MOD-sp2) 64.1 % EF(sp2-el) 65.8 % LVLd %diff -0.23 % EDV(MOD-bp) 87.1 ml LVLs %diff 2.3 % ESV(MOD-bp) 31.3 ml EF(MOD-bp) 64.1 % SV(MOD-sp4) 50.0 ml SI(MOD-sp4) 27.4 ml/m\S\2 SV(MOD-sp2) 62.0 ml SI(MOD-sp2) 33.9 ml/m\S\2 SV(MOD-bp) 55.8 ml SI(MOD-bp) 30.6 ml/m\S\2 SV(sp4-el) 52.6 ml SI(sp4-el) 28.8 ml/m\S\2 SV(sp2-el) 64.9 ml SI(sp2-el) 35.5 ml/m\S\2 Doppler Measurements and Calculations MV E max solo 74.1 cm/sec MV A max solo 47.9 cm/sec MV E/A 1.5 MV dec time 0.22 sec Ao V2 max 123.3 cm/sec Ao max PG 6.1 mmHg Ao max PG (full) 2.2 mmHg LV V1 max PG 3.9 mmHg LV V1 max 98.2 cm/sec TR max solo 199.1 cm/sec
[2016-05-24] MEDS ORDERED: OPTIRAY 320 IV PRN (19:00)
--- NOTE | 2016-05-24 19:14 | Progress Note ---
Internal Med Progress Note Date of Service: May 24, 2016. Provider Documentation: SUBJECTIVE: complaining of chest pain left sided radiating below to her breast going on for some time but since not resolving and now radiating came to the hospital afebrile]\ has dry cough no nausea or abdominal pain no diarrhea OBJECTIVE: Vital Signs-as noted below Exam: General-alert and awake and oriented. Not in distress ENT-normal hearing Neck-no neck masses Lungs-cta b/l no wheezing or crackles Heart-s1 and s2 heard, regular rate and rhythm no murmurs Abdomen-soft bowel sounds present non tender no distension Extremities-no edema no erythema Neuro-alert and awake moves extremities Lab data as noted below. ASSESSMENT & PLAN: CHEST PAIN R/O ACS pt presented with chest pain that began this afternoon assoc with diaphoresis and SOB; pt has history of chronic chest pain per records RFs + FmHx; pt has no tobacco use history s/p cardiac catheterization 02/2015 no CAD EKG no acute ischemic changes; repeat EKG PRN chest pain and in AM serial ce negative d-dimer negative to r/o PE echo today unremarkable excpt grade 1 diastolic dysfunction On t BB and stared ASA and high dose statin for plaque stabilization iv morphine prn appreciate cardiology input Hypotension Blood pressure in 90's started on fluids bb withb holding parameters lactic acid 0.7 empirically starting on iv Azactam and vancomycin follow cx cta chest to rule out any dissection as also having chest pain close monitor H/O PE ON COUMADIN h/o PE 2 years ago d-dimer negative INR therapeutic To cont Coumadin 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 On Lamictal sees [facility] neurology MIGRAINES currently c/o headache likely due to nitro holding triptan for now DEPRESSION/ANXIETY stable cont Lexapro DVT PROPHYLAXIS On Coumadin DISPOSITION To be determined Vital Signs: Date Time Temp Pulse Resp B/P Pulse Ox O2 Delivery O2 Flow Rate FiO2 05/24/16 18:41 98/65 05/24/16 16:00 96 Room Air 05/24/16 12:00 Room Air 05/24/16 11:15 36.8 70 18 115/72 96 Room Air 05/24/16 09:20 79 96/59 05/24/16 08:00 92 Room Air 05/24/16 06:29 36.7 65 18 91/58 92 Room Air 05/24/16 04:05 Room Air 05/24/16 03:37 36.5 70 18 96/60 92 Room Air 05/24/16 00:05 Room Air 05/23/16 23:15 36.7 18 104/64 94 Room Air 05/23/16 21:15 36.7 76 20 107/70 95 Room Air 05/23/16 20:58 36.7 72 21 117/76 95 05/23/16 20:39 72 21 95 05/23/16 20:34 78 15 05/23/16 20:29 70 15 117/76 05/23/16 20:24 67 13 05/23/16 20:19 67 14 05/23/16 20:14 70 21 05/23/16 20:09 79 14 05/23/16 20:04 82 17 05/23/16 19:59 66 15 112/78 94 05/23/16 19:54 67 17 95 05/23/16 19:49 65 17 95 05/23/16 19:44 61 12 94 05/23/16 19:39 62 15 93 05/23/16 19:34 69 16 94 05/23/16 19:29 111/78 Lab Results: Results Past 24 Hours Test 05/23/16 22:27 05/24/16 04:30 05/24/16 04:37 05/24/16 12:00 Range/Units Creatine Kinase MB < 0.5 < 0.5 0.5-3.6 ng/ml Creatine Kinase MB Ratio 0-3.0 Troponin I < 0.015 < 0.015 0-0.045 ng/ml White Blood Count 4.80 4.8-10.8 K/uL Red Blood Count 3.95 4.2-5.4 M/uL Hemoglobin 11.9 12.0-16.0 g/dL Hematocrit 35.5 37-47 % Mean Corpuscular Volume 89.9 80-100 fL Mean Corpuscular Hemoglobin 30.1 25-34 pg Mean Corpuscular Hemoglobin Concent 33.5 32-36 g/dl RDW Standard Deviation 43.6 36.4-46.3 fL RDW Coefficient of Variation 13.2 11.5-14.5 % Platelet Count 334 130-400 K/uL Mean Platelet Volume 9.3 7.4-10.4 fL Prothrombin Time 25.4 9.0-12.0 SECONDS Prothromb Time International Ratio 2.3 0.9-1.1 Sodium Level 146 136-145 mmol/L Potassium Level 4.1 3.5-5.1 mmol/L Chloride Level 110 98-107 mmol/L Carbon Dioxide Level 28 21-32 mmol/L Anion Gap 8.0 3-11 mmol/L Blood Urea Nitrogen 22 7-18 mg/dl Creatinine 1.10 0.60-1.20 mg/dl Est Creatinine Clear Calc Drug Dose 60.8 ml/min Estimated GFR () 66.8 Estimated GFR (Non- 57.7 BUN/Creatinine Ratio 20.4 10-20 Random Glucose 88 70-99 mg/dl Calcium Level 8.7 8.5-10.1 mg/dl Urine Color YELLOW Urine Appearance CLEAR CLEAR Urine pH 7.5 4.5-7.5 Urine Specific [place] 1.010 1.000-1.030 Urine Protein NEG NEG Urine Glucose (UA) NEG NEG Urine Ketones NEG NEG Urine Occult Blood 1+ NEG Urine Nitrite NEG NEG Urine Bilirubin NEG NEG Urine Urobilinogen NEG NEG Urine Leukocyte Esterase TRACE NEG Urine WBC (Auto) 1-5 0-5 /hpf Urine RBC (Auto) 5-10 0-4 /hpf Urine Hyaline Casts (Auto) 0 0-5 /lpf Urine Epithelial Cells (Auto) 20-30 0-5 /lpf Urine Bacteria (Auto) NEG NEG Test 05/24/16 15:15 Range/Units Lactic Acid Level 0.7 0.4-2.0 mmol/L Procalcitonin < 0.05 0-0.5 ng/mL
[2016-05-24] MEDS ORDERED: VANCOMYCIN CONSULT ACTIVE PRN (19:30)
[2016-05-24] MEDS ORDERED: VANCOMYCIN INJ 1,900 MG in SODIUM CHLORIDE 0.9% 500ML 500 ML IV SCH (19:45)
--- NOTE | 2016-05-24 20:06 | DIAGNOSTIC IMAGING REPORT ---
CHEST COMBO ANGIO DISSECTION CLINICAL HISTORY: Severe chest pain. Possible aortic dissection. COMPARISON STUDY: Chest x-ray dated 05/23/2016 FINDINGS: Unenhanced images were obtained through the chest. The patient was then scanned in a dynamic helical fashion during intravenous administration of 118 cc Optiray 320. MIP imaging was performed. Unenhanced images reveal no evidence of acute aortic hematoma. No thyroid masses are visualized. There is no evidence of thoracic aortic dilatation. There is no evidence of thoracic aortic dissection. There are no pulmonary artery filling defects to indicate acute pulmonary embolism. There are no pathologically enlarged mediastinal lymph nodes. Hilar lymph nodes are the upper limits of normal in size. There is no pathologic axillary lymphadenopathy. There are no significant pleural effusions. There are bibasal airspace opacities, likely representing atelectasis. There is a 17 mm subpleural opacity within the right lower lobe, also likely representing focal atelectasis IMPRESSION: 1. No CT evidence of thoracic aortic aneurysm or dissection 2. No CT evidence of acute pulmonary embolism 3. Bibasilar opacities including a 17 mm subpleural right lower lobe opacity. An atelectatic etiology is favored. A six-week follow-up study would seem prudent. Electronically signed by: Vazquez Johnson M.D. 05/24/2016 8:05 PM Dictated Date/Time: 05/24/2016 8:00 PM
[2016-05-24] MEDS: TRAZODONE HCL 100 MG TAB PO SCH (20:27)
[2016-05-24] MEDS: CLONAZEPAM 1 MG TAB PO SCH (20:34)
--- NOTE | 2016-05-24 20:42 | Pharmacy Progress Note ---
Pharmacy Antibiotic Consult Date of Service: May 24, 2016. Pharmacy Dosing Scope Pharmacy is consulted to initiate Vancomycin IV dosing therapy, order appropriate labs and adjust drug dose/frequency. Subjective The patient is a 50 year old female admitted on May 23, 2016 at 19:[address] for chest pain that Dr. Hernadez chose to treat empirically with Vancomycin and Azactam for possible sepsis. Objective Height (Feet): 5 Height (Inches): 5.00 Weight (Kilograms): 75.500 Lab Results (24hrs): Laboratory Tests Test 05/24/16 04:37 BUN/Creatinine Ratio 20.4 Blood Urea Nitrogen 22 mg/dl Creatinine 1.10 mg/dl White Blood Count 4.80 K/uL Micro Results: Item Value Date Time Blood Culture Received 05/24/161938 Blood Pending Blood Culture Received 05/24/161937 Blood Pending Recent Pertinent Medications Item Value Date Time Aztreonam 1000 mg/ 110 ml @ 100 mls/hr 05/24/16 1030 Dextrose Q8@0200,1000,1800/IV 05/24/16 1840 Assessment & Plan Loading dose: Vancomycin 1900mg (~25mg/kg) IV x 1 then Vancomycin 1150mg (~15mg/ kg) IV every 14 hours thereafter. I estimated her half life to be around 12.6 hrs. I will check a trough level prior to 0400 dose on 05/27/16 @ 0330 Goal trough level estimate: between 15 -20 mcg/mL. Pharmacy will continue to follow and will adjust dose/frequency as necessary. Thank you
[2016-05-25] VITALS (7 sets, daily range): BP systolic 90–125; BP diastolic 56–83; PULSE 65–98; TEMP 36.4–37.4; O2SAT 91–93
[2016-05-25] MEDS: AZTREONAM IV 1,000 MG in DEXTROSE 5% 100ML 100 ML IV SCH (02:04)
[2016-05-25 06:30] LABS: INR 2.1 (0.9-1.1); PROTHROMBIN TIME (PATIENT) 23.6 SECONDS (9.0-12.0)
[2016-05-25] MEDS: BREO-ELLIPTA~ORDER AWAITING ACTION SCH ×2 (08:00→16:00)
[2016-05-25] MEDS: GABAPENTIN 100 MG CAP PO SCH ×3 (08:28→21:09)
[2016-05-25] MEDS: LEVOFLOXACIN / D5W 750 MG in PREMIXED IN D5W 150 ML IV SCH ×2 (08:28→10:13)
[2016-05-25] MEDS: ASPIRIN 81 MG ECTAB PO SCH (08:29)
[2016-05-25] MEDS: ESCITALOPRAM OXALATE 10 MG TAB PO SCH (08:29)
[2016-05-25] MEDS: GABAPENTIN 300 MG CAP PO SCH ×3 (08:29→21:10)
[2016-05-25] MEDS: OMEGA-3 (PURIFIED FISH OIL) 1 GM CAP PO SCH ×2 (08:30→21:11)
[2016-05-25] MEDS: METOPROLOL SUCC 25MG EXT REL TAB PO SCH (08:30)
[2016-05-25] MEDS: FLUTICASONE PROPIONATE NA SPR 16 GM BTL NAE SCH (09:01)
[2016-05-25] MEDS: ACETAMINOPHEN IV 650 MG in EMPTY BAG 0 ML IV PRN ×2 (09:35→21:08)
[2016-05-25] MEDS ORDERED: TRAMADOL HCL 50 MG TAB PO PRN (09:45)
[2016-05-25] MEDS ORDERED: SUMATRIPTAN SUCC TAB 100 MG TAB PO ONE (11:30)
[2016-05-25] MEDS: VANCOMYCIN INJ 1,150 MG in SODIUM CHLORIDE 0.9% 250ML 250 ML IV SCH (12:00)
[2016-05-25] MEDS: SODIUM CHLORIDE 0.9% 1000ML 1,000 ML IV SCH ×2 (12:06→16:06)
--- NOTE | 2016-05-25 12:57 | Cardiology Follow-Up ---
Subjective General Date of Service: May 25, 2016. Chief Complaint: CP/migraine Pt evaluation today including: conversation w/ patient, physical exam, chart review, lab review, review of studies, review of inpatient medication list History of Present Illness Patient with waxing/waning chest pain overnight. Described as burning sensation underneath left breast. Improves with morphine. Normal EKG's and cardiac enzymes. Unremarkable echo. Primary complaint this morning is migraine. Notes intermittent cough. Allergies Coded Allergies: Cephalexin (Verified Allergy, Unknown, ., 05/23/16) Penicillins (Verified Allergy, Unknown, ., 05/23/16) Sulfa Antibiotics (Verified Allergy, Unknown, Unknown rxn, 05/23/16) Social History Smoking Status: Unknown if Ever Smoked Hx Tobacco Use In Past Year?: No Hx Alcohol Use - Type And Amou: No Hx Substance Use - Type And Am: No Problem List Medical Problems: (1) Concussion Status: Acute (2) Left sided chest pain Status: Acute (3) Right ankle tendonitis Status: Acute (4) Syncope Status: Acute Review of Systems Respiratory: + cough, No dyspnea at rest, No hemoptysis, No shortness of breath , No sputum Cardiac: + chest pain, No PND, No edema, No orthopnea, No palpitations Physical Exam Vital Signs Last Vital Signs Documentation Date Time Temp Pulse Resp B/P Pulse Ox O2 Delivery O2 Flow Rate FiO2 05/25/16 07:55 37.4 98 18 107/65 92 05/25/16 04:00 Room Air Physical Exam Constitutional: General Apperance: well-developed Level of Distress: mild distress Psychiatric: Mental Status: lethargic, depressed Orientation: to time, to place, to person Head: normocephalic Eyes: Pupils: PERRLA Neck: supple Lungs: Auscultation: rhonchi Cardiovascular: Heart Auscultation: RRR, normal S1, normal S2, no murmurs Abdomen: Bowel Sounds: normal Inspection & Palpation: soft, non-distended Extremities: no edema Assessment and Plan Assessment and Plan IMPRESSION: 50-year-old female 1. Atypical chest pain -long history of non cardiac chest pain, similar in nature. Normal cardiac cath in 2014. -negative cardiac enzymes x3 -serial Non ischemic EKG despite persistent symptoms. -echo results with normal LV function, no wall motion abnormalities. No valvular disease -negative CT for dissection/PE - possible lower lobe opacity - started on antibiotics. -Results: * Compared to prior study, there is no significant change. * -- Conclusions -- * Left ventricular systolic function is normal. * Ejection Fraction = 60-65%. * There is mild tricuspid regurgitation. * Doppler findings do not suggest pulmonary hypertension. * Grade I diastolic dysfunction, (abnormal relaxation pattern). 2. Sinus tachycardia - controlled on low dose metoprolol 3. History of PE - negative D.Dimer. Therapeutic INR. Continue Coumadin. N 4. Diastolic dysfunction - no clinical sings of acute diastolic HF Patient with non cardiac chest pain. Consider GI work up for possible GERD? No further cardiac testing is warranted at this time. Continue home medications. Case discussed with Dr. Jensen Cardiology attending physician: Patient seen and examined at the bedside. Reports intermittent chest burning relieved with morphine. No CP currently. C/o migraine SPEARS. PE:VSS, GEN: NAD, AAO x 3, Neck: No JVD, No carotid bruit. Heart: Regular rhythm, normal S1 and S2, no murmur, rub, gallop. Lungs: Clear bilateral, no rales, rhonchi, or wheeze. ABD: Soft, nontender, nondistended, normal bowel sounds. EXT: Skin is warm and dry, no clubbing, cyanosis, or edema. A/P: Agree with above PAC history, physical exam, assessment and plan. Cardiac evaluation negative including cardiac enzymes, ECG, telemetry, echocardiogram, and chest x-ray. Previous normal cardiac catheterization. Continue home medications. Dennis Jensen DO, [facility] Laboratory Results Last 24 Hours Test 05/24/16 15:15 05/25/16 06:00 Lactic Acid Level 0.7 mmol/L Procalcitonin < 0.05 ng/mL Prothrombin Time 23.6 SECONDS Prothromb Time International Ratio 2.1 Creatinine 1.00 mg/dl Est Creatinine Clear Calc Drug Dose 68.0 ml/min Estimated GFR () 75.0 Estimated GFR (Non- 64.7
--- NOTE | 2016-05-25 15:26 | Progress Note ---
Internal Med Progress Note Date of Service: May 25, 2016. Provider Documentation: SUBJECTIVE: complaining of migraine headache still has chest pain afebrile no sob morphine helping with chest pain OBJECTIVE: Vital Signs-as noted below Exam: General-alert and awake and oriented. Not in distress ENT-normal hearing Neck-no neck masses Lungs-cta b/l no wheezing or crackles Heart-s1 and s2 heard, regular rate and rhythm no murmurs Abdomen-soft bowel sounds present non tender no distension Extremities-no edema no erythema Neuro-alert and awake moves extremities Lab data as noted below. ASSESSMENT & PLAN: CHEST PAIN R/O ACS pt presented with chest pain that began this afternoon assoc with diaphoresis and SOB; pt has history of chronic chest pain per records RFs + FmHx; pt has no tobacco use history s/p cardiac catheterization 02/2015 no CAD EKG no acute ischemic changes; repeat EKG PRN chest pain and in AM serial ce negative d-dimer negative to r/o PE echo today unremarkable excpt grade 1 diastolic dysfunction On BB and stared ASA and high dose statin for plaque stabilization iv morphine prn appreciate cardiology input echo unremarkable non cardiac as per cardiology Hypotension Blood pressure in 90's started on fluids bb withb holding parameters lactic acid 0.7 empirically starting on iv Azactam and vancomycin follow cx cta chest to rule out any dissection as also having chest pain possible pneumonia on ct scan changed Azactam to Levaquin BP improving H/O PE ON COUMADIN h/o PE 2 years ago d-dimer negative INR therapeutic To cont Coumadin 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 On Lamictal sees [facility] neurology stable MIGRAINES currently c/o headache likely due to nitro having severe headache today given a dose of Imitrex DEPRESSION/ANXIETY stable cont Lexapro DVT PROPHYLAXIS On Coumadin DISPOSITION To be determined Vital Signs: Date Time Temp Pulse Resp B/P Pulse Ox O2 Delivery O2 Flow Rate FiO2 05/25/16 12:00 Room Air 05/25/16 08:00 92 Room Air 05/25/16 07:55 37.4 98 18 107/65 92 05/25/16 04:00 Room Air 05/25/16 00:03 36.4 66 16 90/56 91 Room Air 05/25/16 00:00 92 Room Air 05/24/16 20:45 36.3 61 16 100/60 90 Room Air 05/24/16 20:00 95 Room Air 05/24/16 18:41 98/65 05/24/16 16:00 96 Room Air Lab Results: Results Past 24 Hours Test 05/25/16 06:00 Range/Units Prothrombin Time 23.6 9.0-12.0 SECONDS Prothromb Time International Ratio 2.1 0.9-1.1 Creatinine 1.00 0.60-1.20 mg/dl Est Creatinine Clear Calc Drug Dose 68.0 ml/min Estimated GFR () 75.0 Estimated GFR (Non- 64.7 Microbiology Results 05/24/16 Blood Culture, Received Pending 05/24/16 Blood Culture, Received Pending 05/25/16 MRSA DNA Surveillance Screen, Received Pending 05/25/16 Urine Culture, Received Pending
[2016-05-25] MEDS: WARFARIN SOD 3 MG TAB PO SCH (16:10)
[2016-05-25] MEDS: ONDANSETRON INJ 2 MG/ML 2 ML VIAL IV PRN (17:41)
[2016-05-25] MEDS: CLONAZEPAM 1 MG TAB PO SCH (21:08)
[2016-05-25] MEDS: TRAZODONE HCL 100 MG TAB PO SCH (21:10)
[2016-05-26] VITALS (11 sets, daily range): BP systolic 94–126; BP diastolic 62–82; PULSE 56–76; TEMP 36.4–36.8; O2SAT 90–95
[2016-05-26] MEDS: SODIUM CHLORIDE 0.9% 1000ML 1,000 ML IV SCH (00:18)
[2016-05-26] MEDS: VANCOMYCIN INJ 1,150 MG in SODIUM CHLORIDE 0.9% 250ML 250 ML IV SCH (00:18)
[2016-05-26] MEDS ORDERED: VANCOMYCIN TROUGH SCH (03:30)
[2016-05-26 06:21] LABS: INR 2.2 (0.9-1.1); PROTHROMBIN TIME (PATIENT) 24.6 SECONDS (9.0-12.0)
[2016-05-26 06:54] LABS: CREATININE 0.89 mg/dl (0.60-1.20)
[2016-05-26] MEDS: BREO-ELLIPTA~ORDER AWAITING ACTION SCH ×4 (07:10→23:52)
[2016-05-26] MEDS: LEVOFLOXACIN / D5W 750 MG in PREMIXED IN D5W 150 ML IV SCH (07:59)
[2016-05-26] MEDS: ASPIRIN 81 MG ECTAB PO SCH (08:00)
[2016-05-26] MEDS: FLUTICASONE PROPIONATE NA SPR 16 GM BTL NAE SCH (08:00)
[2016-05-26] MEDS: ESCITALOPRAM OXALATE 10 MG TAB PO SCH (08:01)
[2016-05-26] MEDS: GABAPENTIN 300 MG CAP PO SCH ×3 (08:01→22:11)
[2016-05-26] MEDS: OMEGA-3 (PURIFIED FISH OIL) 1 GM CAP PO SCH ×2 (08:02→22:12)
[2016-05-26] MEDS: METOPROLOL SUCC 25MG EXT REL TAB PO SCH (08:03)
[2016-05-26] MEDS: GABAPENTIN 100 MG CAP PO SCH ×3 (08:04→22:12)
[2016-05-26] MEDS ORDERED: SUMATRIPTAN SUCC TAB 100 MG TAB PO PRN (11:45)
--- NOTE | 2016-05-26 14:48 | Progress Note ---
Internal Med Progress Note Date of Service: May 26, 2016. Provider Documentation: SUBJECTIVE: woke up with headaches but are better now afebrile still has some chest pain below her left breast no sob OBJECTIVE: Vital Signs-as noted below Exam: General-alert and awake and oriented. Not in distress ENT-normal hearing Neck-no neck masses Lungs-cta b/l no wheezing or crackles Heart-s1 and s2 heard, regular rate and rhythm no murmurs Abdomen-soft bowel sounds present non tender no distension Extremities-no edema no erythema Neuro-alert and awake moves extremities Lab data as noted below. ASSESSMENT & PLAN: CHEST PAIN R/O ACS pt presented with chest pain that began this afternoon assoc with diaphoresis and SOB; pt has history of chronic chest pain per records RFs + FmHx; pt has no tobacco use history s/p cardiac catheterization 02/2015 no CAD EKG no acute ischemic changes; repeat EKG PRN chest pain and in AM serial ce negative d-dimer negative to r/o PE echo today unremarkable excpt grade 1 diastolic dysfunction On BB and stared ASA and high dose statin for plaque stabilization iv morphine prn appreciate cardiology input echo unremarkable non cardiac as per cardiology stable Hypotension Blood pressure in 90's started on fluids bb withb holding parameters lactic acid 0.7 empirically starting on iv Azactam and vancomycin follow cx cta chest to rule out any dissection as also having chest pain possible pneumonia on ct scan changed Azactam to Levaquin BP improving stop vqncomycin will complete 7-10day corse of Levaquin H/O PE ON COUMADIN h/o PE 2 years ago d-dimer negative INR therapeutic To cont Coumadin 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 On Lamictal sees [facility]y stable MIGRAINES currently c/o headache likely due to nitro having severe headache today given a dose of Imitrex DEPRESSION/ANXIETY stable cont Lexapro DVT PROPHYLAXIS On Coumadin DISPOSITION ambulate in hallway possible d/c in am Vital Signs: Date Time Temp Pulse Resp B/P Pulse Ox O2 Delivery O2 Flow Rate FiO2 05/26/16 12:00 Room Air 05/26/16 11:27 36.7 74 18 99/64 95 05/26/16 08:00 Room Air 05/26/16 07:41 36.7 67 18 94/62 91 05/26/16 05:35 36.4 63 18 105/69 90 Room Air 05/26/16 04:00 Room Air 05/26/16 03:46 36.4 63 18 105/69 91 Room Air 05/26/16 00:21 36.5 64 20 97/63 93 Room Air 05/26/16 00:00 Room Air 05/25/16 20:00 93 Room Air 05/25/16 16:00 93 Room Air 05/25/16 15:45 37.3 65 14 125/83 93 Room Air Lab Results: Results Past 24 Hours Test 05/26/16 05:32 Range/Units Prothrombin Time 24.6 9.0-12.0 SECONDS Prothromb Time International Ratio 2.2 0.9-1.1 Creatinine 0.89 0.60-1.20 mg/dl Est Creatinine Clear Calc Drug Dose 76.4 ml/min Estimated GFR () 86.4 Estimated GFR (Non- 74.5
[2016-05-26] MEDS: MoRPHine SULFATE 2 MG/ML CARP IV PRN (16:10)
[2016-05-26] MEDS: WARFARIN SOD 3 MG TAB PO SCH (16:13)
[2016-05-26] MEDS ORDERED: LACTULOSE SYRUP 30 GM/45 ML UDP PO ONE (18:45)
[2016-05-26] MEDS: CLONAZEPAM 1 MG TAB PO SCH (22:11)
[2016-05-26] MEDS: TRAZODONE HCL 100 MG TAB PO SCH (22:12)
[2016-05-27] MEDS ORDERED: VANCOMYCIN TROUGH SCH (03:30)
[2016-05-27 04:00] VITALS: BP 99/62; PULSE 64; TEMP 36.8; O2SAT 90
[2016-05-27 07:29] VITALS: BP 93/54; PULSE 77; TEMP 36.4; O2SAT 97
[2016-05-27 07:55] LABS: BUN/CREATININE RATIO 13.8 (10-20); CALCIUM 8.5 mg/dl (8.5-10.1); CREATININE 0.92 mg/dl (0.60-1.20); CREATININE 0.96 mg/dl (0.60-1.20); MAGNESIUM 2.1 mg/dl (1.8-2.4); POTASSIUM 4.1 mmol/L (3.5-5.1)
[2016-05-27 07:58] LABS: BASO % 0.2 %; BASO ABS # 0.01 K/uL (0-0.2); COMPLETE YES; EOS % 5.2 %; HEMATOCRIT 32.7 % (37-47); IG% 0.2 %; LYMPH % 38.1 %; LYMPH ABS # 2.06 K/uL (1.2-3.4); MEAN CELL VOLUME 90.3 fL (80-100); MEAN CORPUSCULAR HEMOGLOBIN 30.1 pg (25-34); MEAN CORPUSCULAR HGB CONC 33.3 g/dl (32-36); MEAN PLATELET VOLUME 9.4 fL (7.4-10.4); MONO % 7.4 %; NEUT % 48.9 %; PLATELET COUNT 290 K/uL (130-400); RED BLOOD COUNT 3.62 M/uL (4.2-5.4); WHITE BLOOD COUNT 5.41 K/uL (4.8-10.8)
[2016-05-27] MEDS: METOPROLOL SUCC 25MG EXT REL TAB PO SCH (08:00)
[2016-05-27] MEDS: BREO-ELLIPTA~ORDER AWAITING ACTION SCH (08:00)
[2016-05-27] MEDS: OMEGA-3 (PURIFIED FISH OIL) 1 GM CAP PO SCH (08:05)
[2016-05-27] MEDS: GABAPENTIN 300 MG CAP PO SCH ×2 (08:06→15:29)
[2016-05-27] MEDS: ESCITALOPRAM OXALATE 10 MG TAB PO SCH (08:06)
[2016-05-27] MEDS: ASPIRIN 81 MG ECTAB PO SCH (08:06)
[2016-05-27] MEDS: GABAPENTIN 100 MG CAP PO SCH ×2 (08:06→15:29)
[2016-05-27] MEDS: FLUTICASONE PROPIONATE NA SPR 16 GM BTL NAE SCH (08:07)
[2016-05-27] MEDS ORDERED: LEVOFLOXACIN 750 MG TAB PO SCH (11:00)
[2016-05-27] MEDS ORDERED: LVQ750 PO (13:19)
[2016-05-27] MEDS ORDERED: LCTX PO (13:20)
--- NOTE | 2016-05-27 13:22 | Discharge Instructions ---
Discharge Instructions Admission Reason for Admission: Chest Pain Discharge Discharge Diagnosis / Problem: chest pain, pneumonia? Discharge Goals Goal(s): Decrease discomfort, Improve function Activity Recommendations Activity Limitations: resume your previous activity . Instructions / Follow-Up Instructions / Follow-Up FOLLOWUP WITH FAMILY DOCTOR DR.MAINISHA ENGLE ON May 10:50AM BLOOD PRESSURE AND HEART RATE FOLLOWUP WITH FAMILY DOCTOR. CT CHEST IN 2 MONTHS FOR 17 mm subpleural right lower lobe opacity PER FAMILY DOCTOR. FOLLOWUP WITH COUMADIN CLINIC FOR COUMADIN DOSING Current Hospital Diet Patient's current hospital diet: AHA Diet (Heart Healthy) Discharge Diet Recommended Diet: Regular Diet Pending Studies Studies pending at discharge: no Medical Emergencies . Who to Call and When: Medical Emergencies: If at any time you feel your situation is an emergency, please call 911 immediately. . Non-Emergent Contact Non-Emergency issues call your: Primary Care Provider . . "Provider Documentation" section prepared by Robbin Hernadez. VTE Core Measure Inpt VTE Proph given/why not?: Warfarin (Coumadin)
[2016-05-27 15:23] VITALS: BP 118/77; PULSE 73; TEMP 37.3; O2SAT 92
[2016-05-27] MEDS: WARFARIN SOD 3 MG TAB PO SCH (15:29)
[2016-05-27 15:35] VITALS: BP 118/77; PULSE 73; TEMP 37.3; O2SAT 92
--- NOTE | 2016-05-27 16:43 | Progress Note ---
Internal Med Progress Note Date of Service: May 27, 2016. Provider Documentation: SUBJECTIVE: headaches better no complaints of chest pain today afebrile ok for home OBJECTIVE: Vital Signs-as noted below Exam: General-alert and awake and oriented. Not in distress ENT-normal hearing Neck-no neck masses Lungs-cta b/l no wheezing or crackles Heart-s1 and s2 heard, regular rate and rhythm no murmurs Abdomen-soft bowel sounds present non tender no distension Extremities-no edema no erythema Neuro-alert and awake moves extremities Lab data as noted below. ASSESSMENT & PLAN: CHEST PAIN R/O ACS pt presented with chest pain that began this afternoon assoc with diaphoresis and SOB; pt has history of chronic chest pain per records RFs + FmHx; pt has no tobacco use history s/p cardiac catheterization 02/2015 no CAD EKG no acute ischemic changes; repeat EKG PRN chest pain and in AM serial ce negative d-dimer negative to r/o PE echo today unremarkable excpt grade 1 diastolic dysfunction On BB and stared ASA and high dose statin for plaque stabilization iv morphine prn appreciate cardiology input echo unremarkable non cardiac as per cardiology stable Hypotension Blood pressure in 90's started on fluids bb withb holding parameters lactic acid 0.7 empirically starting on iv Azactam and vancomycin follow cx cta chest to rule out any dissection as also having chest pain possible pneumonia on ct scan changed Azactam to Levaquin BP improving will complete 7day course of Levaquin Lopressor stopped on discharge followup with pcp H/O PE ON COUMADIN h/o PE 2 years ago d-dimer negative INR therapeutic To cont Coumadin 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 On Lamictal sees [facility] neurology stable MIGRAINES currently c/o headache likely due to nitro having severe headache today given a dose of Imitrex DEPRESSION/ANXIETY stable cont Lexapro DVT PROPHYLAXIS On Coumadin discharged Vital Signs: Date Time Temp Pulse Resp B/P Pulse Ox O2 Delivery O2 Flow Rate FiO2 05/27/16 15:35 37.3 73 18 92 Room Air 05/27/16 15:23 37.3 73 18 118/77 92 Room Air 05/27/16 08:22 Room Air 05/27/16 07:29 36.4 77 16 93/54 97 Room Air 05/27/16 04:00 36.8 64 16 99/62 90 Room Air 05/27/16 04:00 Room Air 05/27/16 00:00 Room Air 05/26/16 23:17 36.5 76 18 101/70 90 Room Air 05/26/16 20:10 36.8 74 16 98/62 92 Room Air 05/26/16 20:00 92 Room Air Lab Results: Results Past 24 Hours Test 05/27/16 07:04 Range/Units White Blood Count 5.41 4.8-10.8 K/uL Red Blood Count 3.62 4.2-5.4 M/uL Hemoglobin 10.9 12.0-16.0 g/dL Hematocrit 32.7 37-47 % Mean Corpuscular Volume 90.3 80-100 fL Mean Corpuscular Hemoglobin 30.1 25-34 pg Mean Corpuscular Hemoglobin Concent 33.3 32-36 g/dl Platelet Count 290 130-400 K/uL Mean Platelet Volume 9.4 7.4-10.4 fL Neutrophils (%) (Auto) 48.9 % Lymphocytes (%) (Auto) 38.1 % Monocytes (%) (Auto) 7.4 % Eosinophils (%) (Auto) 5.2 % Basophils (%) (Auto) 0.2 % Neutrophils # (Auto) 2.65 1.4-6.5 K/uL Lymphocytes # (Auto) 2.06 1.2-3.4 K/uL Monocytes # (Auto) 0.40 0.11-0.59 K/uL Eosinophils # (Auto) 0.28 0-0.5 K/uL Basophils # (Auto) 0.01 0-0.2 K/uL RDW Standard Deviation 44.1 36.4-46.3 fL RDW Coefficient of Variation 13.3 11.5-14.5 % Immature Granulocyte % (Auto) 0.2 % Immature Granulocyte # (Auto) 0.01 0.00-0.02 K/uL Sodium Level 144 136-145 mmol/L Potassium Level 4.1 3.5-5.1 mmol/L Chloride Level 109 98-107 mmol/L Carbon Dioxide Level 29 21-32 mmol/L Anion Gap 6.0 3-11 mmol/L Blood Urea Nitrogen 13 7-18 mg/dl Creatinine 0.96 0.60-1.20 mg/dl Est Creatinine Clear Calc Drug Dose 70.6 ml/min Estimated GFR () 78.8 Estimated GFR (Non- 68.0 BUN/Creatinine Ratio 13.8 10-20 Random Glucose 80 70-99 mg/dl Calcium Level 8.5 8.5-10.1 mg/dl Magnesium Level 2.1 1.8-2.4 mg/dl
--- NOTE | 2016-05-27 19:54 | Discharge Summary ---
Discharge Summary Date of Service May 27, 2016. Discharge Summary Admission Date: May 23, 2016 at 19:41 Discharge Date: May 27, 2016 Discharge Disposition: Home Principal Diagnosis: CHEST PAIN PNEUMONIA? Secondary Diagnoses/Problems: (1) Anticoagulation goal of INR 2 to 3 Status: Chronic (2) Depression Status: Chronic (3) Migraine Status: Chronic (4) Pulmonary embolism Status: Chronic (5) Seizure disorder Status: Chronic (6) Sinus tachycardia Status: Chronic Procedures: CTA CHEST: 1. No CT evidence of thoracic aortic aneurysm or dissection 2. No CT evidence of acute pulmonary embolism 3. Bibasilar opacities including a 17 mm subpleural right lower lobe opacity. An atelectatic etiology is favored. A six-week follow-up study would seem prudent. ECHO: Left ventricular systolic function is normal. * Ejection Fraction = 60-65%. * There is mild tricuspid regurgitation. * Doppler findings do not suggest pulmonary hypertension. * Grade I diastolic dysfunction, (abnormal relaxation pattern). Consultations: CARDIOLOGY Medication Reconciliation New Medications: Lactobacillus Acidophilus (Lactinex) Tab 2 TAB PO BID for 10 Days, TAB Levofloxacin (Levofloxacin) 750 Mg Tab 750 MG PO DAILY@11 for 5 Days, TAB Continued Medications: Albuterol Sulfate (Proventil Hfa) 108 Mcg/Act Aer 2 PUFFS INH Q4H PRN for SOB/Wheezing Clonazepam (Klonopin) 1 Mg Tab 1 MG PO HS Cyclobenzaprine Hcl (Flexeril) 10 Mg Tab 10 MG PO BID PRN for Muscle Spasms, #21 TAB Escitalopram (Lexapro) 10 Mg Tab 30 MG PO DAILY 3 TABLET DOSE Fenofibrate (Tricor) 160 Mg Tab 160 MG PO DAILY Fish Oil ([place]-3) 1 Ea Cap 1 CAP PO BID, CAP Fluticasone Furoate-Vilanterol (Breo Ellipta) 1 Inh Inh 1 DOSE INH DAILY Fluticasone Propionate (Nasal) (Flonase Allergy Relief) 50 Mcg/Act Spr 2 SPRAYS LINETTE DAILY Folic Acid (Folvite) 1 Mg Tab 1 MG PO DAILY Gabapentin (Gabapentin) 100 Mg Cap 100 MG PO TID WITH 300MG CAPS TO GET DOSE OF 400MG Gabapentin (Neurontin) 300 Mg Cap 300 MG PO TID WITH 100MG CAPS TO GET DOSE OF 400MG Lamotrigine (Lamictal) 150 Mg Tab 150 MG PO BID Lorazepam (Ativan) 1 Mg Tab 1 MG PO TID PRN for Anxiety Naratriptan Hcl (Amerge) 2.5 Mg Tab 2.5 MG PO DAILY PRN for Pain Trazodone Hcl (Trazodone) 100 Mg Tab 200 MG PO HS Warfarin Sod (Jantoven) 6 Mg Tab 6 MG PO WK, TAB TAKE 6MG ON MONDAY Warfarin Sodium (Coumadin) 6 Mg Tab 3 MG PO DAILY TAKE 3MG EVERYDAY EXCEPT MONDAY Discontinued Medications: Metoprolol Succ (Toprol Xl) (Toprol-Xl) 25 Mg Tabcr 25 MG PO DAILY, #30 TAB Admission Information HPI (per Admitting provider): This is a 50 y/o female with PMHx of chronic chest pain, h/o PE on Coumadin, seizures who presents to the ED c/o chest pain that began this afternoon. Pt reports that at noon today she was driving her car when she developed L sided chest pain that she describes as 7/10 "squeezing" pain that radiated to the L neck. Sxs were aggravated with exertion. Her sxs were assoc with diaphoresis and SOB. Pt did not take anything for her sxs and the chest pain persisted for 3.5 hrs before being relieved with nitro in the ED. Pt reports she has had chest pain in the past however this episode was more intense than past episodes. Patient has a FmHx of heart disease with her father having a CABG in his early 60s. Pt has no tobacco use history. After reviewing records, it is noted that patient has chronic chest discomfort. She had a negative cardiac catheterization in February 2015. Pt had an echo in February 2016 which revealed new grade II diastolic dysfunction. Pt was seen by cardiology (Dr. Varela) last month at which point her verapamil was switched to metoprolol. Pt denies fever/chills, palpitations, abd pain, N/V, bowel or bladder issues, LE edema ,calf pain, lightheadedness/dizziness. In the ED, vitals are stable. labs reviewed are unremarkable. Trop is negative and EKG shows no evidence of ischemia. CXR is negative. Pt received nitro on presentation to the ED which relieved her pain however the pain returned. Patient is currently c/o 3/10 chest discomfort. She is stable and will be admitted for further evaluation and treatment. Physical Exam (per Admitting): General Appearance: WD/WN, no apparent distress, + pertinent finding (Pt is laying in bed with sister at bedside ) Head: normocephalic, atraumatic Eyes: normal inspection ENT: hearing grossly normal Neck: supple Respiratory/Chest: chest non-tender, lungs clear, normal breath sounds, no respiratory distress Cardiovascular: regular rate, rhythm, no edema, no murmur Abdomen/GI: normal bowel sounds, non tender, soft Back: normal inspection Extremities/Musculoskelatal: normal inspection, no calf tenderness, no pedal edema Neurologic/Psych: alert, normal mood/affect, oriented x 3 Skin: normal color, warm/dry Hospital Course CHEST PAIN R/O ACS pt presented with chest pain that began this afternoon assoc with diaphoresis and SOB; pt has history of chronic chest pain per records RFs + FmHx; pt has no tobacco use history s/p cardiac catheterization 02/2015 no CAD EKG no acute ischemic changes; repeat EKG PRN chest pain and in AM serial ce negative d-dimer negative to r/o PE echo today unremarkable excpt grade 1 diastolic dysfunction On BB and stared ASA and high dose statin for plaque stabilization iv morphine prn appreciate cardiology input echo unremarkable non cardiac as per cardiology stable Hypotension Blood pressure in 90's started on fluids bb withb holding parameters lactic acid 0.7 empirically starting on iv Azactam and vancomycin follow cx cta chest to rule out any dissection as also having chest pain possible pneumonia on ct scan changed Azactam to Levaquin BP improving will complete 7day course of Levaquin Lopressor stopped on discharge followup with pcp H/O PE ON COUMADIN h/o PE 2 years ago d-dimer negative INR therapeutic To cont Coumadin 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 [place] [facility] [place] MIGRAINES currently c/o headache likely due to nitro having severe headache today given a dose of Imitrex DEPRESSION/ANXIETY stable cont Lexapro DVT PROPHYLAXIS On Coumadin discharged Total time spent on discharge = 35MINUTES This includes examination of the patient, discharge planning, medication reconciliation, and communication with other providers. Discharge Instructions Discharge Instructions Admission Reason for Admission: Chest Pain Discharge Discharge Diagnosis / Problem: chest pain, pneumonia? Discharge Goals Goal(s): Decrease discomfort, Improve function Activity Recommendations Activity Limitations: resume your previous activity . Instructions / Follow-Up Instructions / Follow-Up FOLLOWUP WITH FAMILY DOCTOR DR.MAINISHA ENGLE ON May 10:50AM BLOOD PRESSURE AND HEART RATE FOLLOWUP WITH FAMILY DOCTOR. CT CHEST IN 2 MONTHS FOR 17 mm subpleural right lower lobe opacity PER FAMILY DOCTOR. FOLLOWUP WITH COUMADIN CLINIC FOR COUMADIN DOSING Current Hospital Diet Patient's current hospital diet: AHA Diet (Heart Healthy) Discharge Diet Recommended Diet: Regular Diet Pending Studies Studies pending at discharge: no Medical Emergencies . Who to Call and When: Medical Emergencies: If at any time you feel your situation is an emergency, please call 911 immediately. . Non-Emergent Contact Non-Emergency issues call your: Primary Care Provider . . "Provider Documentation" section prepared by Robbin Hernadez. VTE Core Measure Inpt VTE Proph given/why not?: Warfarin (Coumadin)
== END 2016-05-27 16:45 | disposition home or self-care (01) ==
LOC: CANRESERV → ENRESERVDT → ENRESERVTM → EDBD 15:57 → C.EDB 15:58 → C.MED 19:41
PROVIDERS: ADMIT Hospitalist; ATTEND Internal Medicine
DX: R07.89 Other chest pain (principal); R07.9 Chest pain, unspecified; R06.02 Shortness of breath; I51.89 Other ill-defined heart diseases; R91.8 Other nonspecific abnormal finding of lung field; I95.9 Hypotension, unspecified; G43.909 Migraine, unspecified, not intractable, without status migrainosus; G40.909 Epilepsy, unspecified, not intractable, without status epilepticus; E78.5 Hyperlipidemia, unspecified; F32.9 Major depressive disorder, single episode, unspecified; F41.9 Anxiety disorder, unspecified; Z51.81 Encounter for therapeutic drug level monitoring; Z79.899 Other long term (current) drug therapy; Z79.01 Long term (current) use of anticoagulants; Z86.711 Personal history of pulmonary embolism; Z82.49 Family history of ischemic heart disease and other diseases of the circulatory system; Z83.3 Family history of diabetes mellitus

== ENCOUNTER → 2016-07-11 | Outpatient (CLI) | payer OTHER ==
[~2016-07-11] MED LIST changes: +ALBUAER INH; +CMD3 PO; +CYCL10TA6 PO; +FLUT1INH INH; +LPR50X PO; +LVQ750 PO; +METO-157 PO; -METO25TA3 PO; +OMEG10007 PO; +TOPAMAX PO; +TOPI25TA10 PO; -TRAM-10 PO; +VALA500T60 PO; +WARF3TAB6 PO; +WARF6TAB5 PO
--- NOTE | 2016-07-11 16:24 | MAMMOGRAPHY REPORT ---
BILATERAL DIGITAL SCREENING MAMMOGRAM TOMOSYNTHESIS WITH CAD: 07/11/2016 CLINICAL HISTORY: Routine screening. Patient has no complaints. TECHNIQUE: Breast tomosynthesis in addition to standard 2D mammography was performed. Current study was also evaluated with a Computer Aided Detection (CAD) system. COMPARISON: Comparison is made to exam dated: 01/11/2014 mammogram. BREAST COMPOSITION: There are scattered areas of fibroglandular density in both breasts. FINDINGS: The parenchymal pattern is similar to the 2014 mammograms. No developing mass, marine architect ural distortion or cluster of suspicious microcalcifications is seen in either breast. IMPRESSION: ACR BI-RADS CATEGORY 2: BENIGN There is no mammographic evidence of malignancy. A 1 year screening mammogram is recommended. The p atient will receive written notification of the results. Approximately 10% of breast cancers are not detected with mammography. A negative mammographic repor t should not delay biopsy if a clinically suggestive mass is present. Denisa Grubbs M.D. ay/:07/11/2016 16:03:55 It Help Desk Technician: Nuris PENA(R)(M), [facility] letter sent: Normal 1/2 BI-RADS Code: ACR BI-RADS Category 2: Benign
== END | disposition home or self-care (01) ==
LOC: C.MAMM 14:31
PROVIDERS: ATTEND Internal Medicine
DX: Z12.31 Encounter for screening mammogram for malignant neoplasm of breast (principal)

== ENCOUNTER 2017-01-19 19:40 | Emergency (ER) | payer OTHER ==
[~2017-01-19] VITALS: Ht 162.6 cm; Wt 72.4 kg
[~2017-01-19 19:40] MED LIST changes: -ALBUAER INH; -ATV/1 PO; -CLON1TAB3 PO; -CMD3 PO; -CYCL10TA6 PO; -ESCI10TA17 PO; -FENO160T PO; -FLUT0.15 NAE; -FLUT1INH INH; -FOLI1TAB7 PO; -LAMO150T32 PO; -LPR50X PO; -METO-157 PO; -NARA2.5T2 PO; -OMEG10007 PO; -TOPAMAX PO; -TOPI25TA10 PO; -TRAZ100T29 PO; -VALA500T60 PO; -WARF3TAB6 PO
[2017-01-19 19:54] VITALS: TEMP 36.9; Ht 162.6 cm; Wt 72.4 kg
[2017-01-19] MEDS ORDERED: ONDANSETRON INJ 2 MG/ML 2 ML VIAL IV STA (20:15)
[2017-01-19] MEDS ORDERED: TOPAMAX PO (20:20)
[2017-01-19 20:33] LABS: BASO % 0.3 %; BASO ABS # 0.02 K/uL (0-0.2); COMPLETE YES; EOS % 2.8 %; IG% 0.2 %; LYMPH % 38.1 %; LYMPH ABS # 2.31 K/uL (1.2-3.4); MEAN CELL VOLUME 90.2 fL (80-100); MEAN CORPUSCULAR HGB CONC 33.2 g/dl (32-36); MEAN PLATELET VOLUME 9.8 fL (7.4-10.4); MONO % 8.1 %; NEUT % 50.5 %; PLATELET COUNT 373 K/uL (130-400); WHITE BLOOD COUNT 6.07 K/uL (4.8-10.8)
[2017-01-19 20:42] LABS: INR 1.8 (0.9-1.1); PARTIAL THROMBOPLASTIN RATIO 1.3; PROTHROMBIN TIME (PATIENT) 19.3 SECONDS (9.0-12.0)
[2017-01-19 20:52] LABS: ALT/SGPT 24 U/L (12-78); AST/SGOT 18 U/L (15-37); BLOOD UREA NITROGEN 12 mg/dl (7-18); BUN/CREATININE RATIO 13.9 (10-20); CALCIUM 9.2 mg/dl (8.5-10.1); CARBON DIOXIDE 29 mmol/L (21-32); CHLORIDE 108 mmol/L (98-107); CREATININE 0.85 mg/dl (0.60-1.20); GLUCOSE 77 mg/dl (70-99); POTASSIUM 3.6 mmol/L (3.5-5.1); SODIUM 142 mmol/L (136-145)
[2017-01-19 20:55] LABS: ALKALINE PHOSPHATASE 81 U/L (45-117)
--- NOTE | 2017-01-19 21:58 | EMERGENCY ROOM VISIT NOTE ---
History First contact with patient: 20:05 Chief Complaint: ABDOMINAL PAIN Stated Complaint: ABD PAIN Nursing Triage Summary: right lower quad abd pain, tender to pal, started monday around umbilicus, worsening all week, worse today, with nausea, anorexia . pain#8/0-10 scale. hx manny and hyster. eating drinking, toileting wnl per pt. History of Present Illness The patient is a 51 year old female who presents to the Emergency Room via EMS with complaints of right lower quadrant abdominal pain. The patient states that the pain started on Monday around the umbilicus and now it is located in the right lower quadrant. It has been getting progressively worse all week. She rated the pain at an 8 out of 10. The patient states that she did receive morphine in route which has helped with the pain. The patient admits to nausea but denies any vomiting. The patient states that over the past few days she has been straining to move her bowels. She has not had an appetite. The patient denies any fever. She does admit to some urinary frequency but denies any urinary urgency, dysuria or hematuria. The patient denies any vaginal discharge. The patient admits to a past medical history of a cholecystectomy as well as a hysterectomy. She states she still has her appendix. She denies any history of kidney stones. The patient does admit to being on Coumadin for a pulmonary embolus 2 years ago. The patient states she last ate at 6 PM this evening. Review of Systems 10 system review was performed and was negative unless stated otherwise history of present illness. Past Medical/Surgical History Medical Problems: (1) Anticoagulation goal of INR 2 to 3 (2) Depression (3) Migraine (4) Pulmonary embolism (5) Seizure disorder (6) Sinus tachycardia Surgical Problems: (1) History of arthroscopic knee surgery (2) History of cholecystectomy (3) Status post partial hysterectomy Family History Cancer Diabetes mellitus FATHER Gallbladder disease Heart disease MOTHER Hypertension MOTHER BROTHER FATHER Social History Smoking Status: Never Smoker Alcohol Use: none Drug Use: none Housing Status: lives with family Occupation Status: unemployed Current/Historical Medications Scheduled Clonazepam (Klonopin), 1 MG PO HS Escitalopram (Lexapro), 30 MG PO DAILY Fenofibrate (Tricor), 160 MG PO DAILY Fish Oil ([place]-3), 1 CAP PO BID Fluticasone Furoate-Vilanterol (Breo Ellipta), 1 DOSE INH DAILY Fluticasone Propionate (Nasal) (Flonase Allergy Relief), 2 SPRAYS LINETTE DAILY Folic Acid (Folvite), 1 MG PO DAILY Lamotrigine (Lamictal), 150 MG PO BID Metoprolol Tartrate (Metoprolol Tartrate), 25 MG PO DAILY Trazodone Hcl (Trazodone), 200 MG PO HS Warfarin Sod (Jantoven), 3 MG PO 5XD Warfarin Sod (Coumadin), 1.5 MG PO 2XWK [Topamax], 2 TABS PO HS Scheduled PRN Albuterol Sulfate (Proventil Hfa), 2 PUFFS INH Q4H PRN for SOB/Wheezing Cyclobenzaprine Hcl (Flexeril), 10 MG PO BID PRN for Muscle Spasms Lorazepam (Ativan), 1 MG PO TID PRN for Anxiety Naratriptan Hcl (Amerge), 2.5 MG PO DAILY PRN for Pain Allergies Coded Allergies: Cephalexin (Verified Allergy, Unknown, ., 01/19/17) Penicillins (Verified Allergy, Unknown, ., 01/19/17) Sulfa Antibiotics (Verified Allergy, Unknown, Unknown rxn, 01/19/17) Physical Exam Vital Signs Date Time Temp Pulse Resp B/P (MAP) Pulse Ox O2 Delivery O2 Flow Rate FiO2 01/19/17 21:50 75 16 118/68 95 Room Air 01/19/17 21:40 69 15 94 01/19/17 21:10 62 13 97 01/19/17 20:40 72 12 98 01/19/17 20:10 71 22 99 01/19/17 19:54 36.9 73 18 107/69 99 Room Air 01/19/17 19:52 73 01/19/17 19:43 107/69 Physical Exam GENERAL: 51-year-old white female appears in no acute distress. MENTAL Status: Alert and oriented 3. MOUTH: Mucosa is moist NECK: Supple, no lymphadenopathy noted. No carotid bruits noted. LUNGS: Clear auscultation without wheezes rales or rhonchi. CARDIAC: Regular rate and rhythm without murmur. Pulses is full and equal throughout. BACK: No CVA tenderness noted. ABDOMEN: Positive bowel sounds all 4 quadrants. Soft, patient has tenderness to palpation in the right lower quadrant otherwise nontender to palpation without organomegaly or masses. Positive rebound. EXTREMITIES: No cyanosis or edema noted. Medical Decision & Procedures Laboratory Results 01/19/17 20:02 Red Blood Count 4.10, Mean Corpuscular Volume 90.2, Mean Corpuscular Hemoglobin 30.0, Mean Corpuscular Hemoglobin Concent 33.2, Mean Platelet Volume 9.8, Neutrophils (%) (Auto) 50.5, Lymphocytes (%) (Auto) 38.1, Monocytes (%) (Auto) 8.1, Eosinophils (%) (Auto) 2.8, Basophils (%) (Auto) 0.3, Neutrophils # (Auto) 3.07, Lymphocytes # (Auto) 2.31, Monocytes # (Auto) 0.49, Eosinophils # (Auto) 0.17, Basophils # (Auto) 0.02 01/19/17 20:02 Test 01/19/17 20:02 White Blood Count 6.07 K/uL (4.8-10.8) Red Blood Count 4.10 M/uL (4.2-5.4) Hemoglobin 12.3 g/dL (12.0-16.0) Hematocrit 37.0 % (37-47) Mean Corpuscular Volume 90.2 fL (80-100) Mean Corpuscular Hemoglobin 30.0 pg (25-34) Mean Corpuscular Hemoglobin Concent 33.2 g/dl (32-36) Platelet Count 373 K/uL (130-400) Mean Platelet Volume 9.8 fL (7.4-10.4) Neutrophils (%) (Auto) 50.5 % Lymphocytes (%) (Auto) 38.1 % Monocytes (%) (Auto) 8.1 % Eosinophils (%) (Auto) 2.8 % Basophils (%) (Auto) 0.3 % Neutrophils # (Auto) 3.07 K/uL (1.4-6.5) Lymphocytes # (Auto) 2.31 K/uL (1.2-3.4) Monocytes # (Auto) 0.49 K/uL (0.11-0.59) Eosinophils # (Auto) 0.17 K/uL (0-0.5) Basophils # (Auto) 0.02 K/uL (0-0.2) RDW Standard Deviation 43.6 fL (36.4-46.3) RDW Coefficient of Variation 13.3 % (11.5-14.5) Immature Granulocyte % (Auto) 0.2 % Immature Granulocyte # (Auto) 0.01 K/uL (0.00-0.02) Prothrombin Time 19.3 SECONDS (9.0-12.0) Prothromb Time International Ratio 1.8 (0.9-1.1) Activated Partial Thromboplast Time 33.8 SECONDS (21.0-31.0) Partial Thromboplastin Ratio 1.3 Anion Gap 5.0 mmol/L (3-11) Est Creatinine Clear Calc Drug Dose 74.7 ml/min Estimated GFR () 90.7 Estimated GFR (Non- 78.2 BUN/Creatinine Ratio 13.9 (10-20) Calcium Level 9.2 mg/dl (8.5-10.1) Total Bilirubin 0.3 mg/dl (0.2-1) Direct Bilirubin < 0.1 mg/dl (0-0.2) Aspartate Amino Transf (AST/SGOT) 18 U/L (15-37) Alanine Aminotransferase (ALT/SGPT) 24 U/L (12-78) Alkaline Phosphatase 81 U/L (45-117) Total Protein 8.0 gm/dl (6.4-8.2) Albumin 3.9 gm/dl (3.4-5.0) Lipase 352 U/L (73-393) Medications Administered Medications (Trade) Dose Ordered Sig/Raz Route Start Time Stop Time Status Last Admin Dose Admin Ondansetron HCl (Zofran Inj) 4 mg NOW STAT IV 01/19/17 20:15 01/19/17 20:16 DC 01/19/17 20:41 4 MG ED Course The patient was evaluated. The patient's EMR medication list were reviewed. IV access was obtained. CBC and differential, coags, renal profile, LFTs and lipase levels were ordered. Observe reviewed. The patient's white count and metabolic profile was normal. The patient's INR was 1.8. Urinalysis was ordered. The patient was given Zofran 4 mg IV push for nausea. CT of the abdomen and pelvis with IV and oral contrast was ordered . At the end of my shift the patient still was unable to give a urine sample and her CT was pending. The patient's care was signed out to Harika Nunes PA-C. Please see her note for the remainder of patient care. Medical Decision Differential diagnosis include diverticulitis, acute appendicitis, colitis, ureteral calculi, UTI Impression Primary Impression: Abdominal pain Departure Information Dispostion Still a Patient Condition GOOD Referrals Es Villegas M.D. (PCP) Patient Instructions [facility] Problem Qualifiers Primary Impression: Abdominal pain Abdominal location: right lower quadrant Qualified Codes: R10.31 - Right lower quadrant pain
[2017-01-19] MEDS ORDERED: OPTIRAY 320 IV PRN (23:15)
[2017-01-19 23:19] LABS: URINE APPEARANCE CLEAR (CLEAR); URINE BILIRUBIN NEG (NEG); URINE COLOR YELLOW; URINE NITRITE NEG (NEG); URINE SPECIFIC GRAVITY 1.011 (1.000-1.030); UROBILINOGEN NEG (NEG); ZZUR CULT IF INDIC CLEAN CATCH NO
[2017-01-19 23:22] LABS: MANUAL MICROSCOPIC REQUIRED? NO; REVIEW REQ? NO
--- NOTE | 2017-01-20 00:54 | EMERGENCY ROOM VISIT NOTE ---
ED Visit Note First contact with patient: 22:18 This patient was signed out to me from Cindy Zhang PA-C pending CT and reevaluation in stable condition. They see her H&P for further information regarding her treatment plan. This is a 51-year-old patient who comes in the ER complaining of right lower quadrant abdominal pain for the past day and a half. CT is negative for acute findings. Patient no leukocytosis. Subtherapeutic INR. She was advised to take an extra dose of her Coumadin. She is advised to recheck her INR in a few days with family care. She is advised to follow-up family care for further evaluation workup for her ongoing abdominal pain or here in the ER sooner for abdominal pain, fevers, vomiting, worsening signs or symptoms or as needed. Patient did not have acute abdomen on exam. She is well-appearing. She tolerated fluids. Case reviewed with my attending. Diagnosis: #1 right lower quadrant abdominal pain #2 subtherapeutic INR DO NOT drive, drink alcohol, operate machinery, or perform dangerous activities today. You were given medications in the ER that can affect your ability to safely function or operate a vehicle. Take an extra dose of your 1.5 mg Coumadin as it is subtherapeutic. Recheck this in 1 week with family care. Acetaminophen(Tylenol) may be used for fever or pain. Use 1000mg every six hours as needed. Avoid using more than 3000mg in a 24 hour period. Zofran 4mg: Take one every six hours as needed for nausea. Avoid alcohol, operating machinery or dangerous equipment, working on ladders or roofs, DRIVING , or situations where being under the influence may be dangerous. Rest and drink plenty of fluids as tolerated. Slow sips of water or sports drinks are recommended instead of large amounts all at once. Continue current medications. Once your stomach is settled start with a clear liquid diet (jello, soup broth, etc.) and then advance as tolerated. You should avoid full, heavy meals for about 24 hrs from the time your symptoms resolved. Return to the ER immediately for worsening or persistent abdominal pain, vomiting, fevers, chest pains, difficulty breathing, black or bloody stools, worsening of your condition, or as needed. Follow up with your primary physician in one to 2 days for a recheck of your current condition. Problem List Medical Problems: (1) Anticoagulation goal of INR 2 to 3 Status: Chronic (2) Depression Status: Chronic (3) Migraine Status: Chronic (4) Pulmonary embolism Status: Chronic (5) Seizure disorder Status: Chronic (6) Sinus tachycardia Status: Chronic Surgical Problems: (1) History of arthroscopic knee surgery Status: Chronic (2) History of cholecystectomy Status: Chronic (3) Status post partial hysterectomy Status: Chronic Current/Historical Medications Scheduled Clonazepam (Klonopin), 1 MG PO HS Escitalopram (Lexapro), 30 MG PO DAILY Fenofibrate (Tricor), 160 MG PO DAILY Fish Oil ([place]-3), 1 CAP PO BID Fluticasone Furoate-Vilanterol (Breo Ellipta), 1 DOSE INH DAILY Fluticasone Propionate (Nasal) (Flonase Allergy Relief), 2 SPRAYS LINETTE DAILY Folic Acid (Folvite), 1 MG PO DAILY Lamotrigine (Lamictal), 150 MG PO BID Metoprolol Tartrate (Metoprolol Tartrate), 25 MG PO DAILY Trazodone Hcl (Trazodone), 200 MG PO HS Warfarin Sod (Jantoven), 3 MG PO 5XD Warfarin Sod (Coumadin), 1.5 MG PO 2XWK [Topamax], 2 TABS PO HS Scheduled PRN Albuterol Sulfate (Proventil Hfa), 2 PUFFS INH Q4H PRN for SOB/Wheezing Cyclobenzaprine Hcl (Flexeril), 10 MG PO BID PRN for Muscle Spasms Lorazepam (Ativan), 1 MG PO TID PRN for Anxiety Naratriptan Hcl (Amerge), 2.5 MG PO DAILY PRN for Pain Allergies Coded Allergies: Cephalexin (Verified Allergy, Unknown, ., 01/19/17) Penicillins (Verified Allergy, Unknown, ., 01/19/17) Sulfa Antibiotics (Verified Allergy, Unknown, Unknown rxn, 01/19/17) Vital Signs Date Time Temp Pulse Resp B/P (MAP) Pulse Ox O2 Delivery O2 Flow Rate FiO2 01/19/17 23:59 94 Nasal Cannula 2.0 01/19/17 23:50 71 15 87 Room Air 01/19/17 23:32 102/64 01/19/17 22:50 64 15 89 01/19/17 22:45 64 15 94 Room Air 01/19/17 22:31 01/19/17 22:15 64 13 90 01/19/17 22:04 62 01/19/17 22:01 102/70 01/19/17 21:51 118/68 01/19/17 21:50 75 16 118/68 95 Room Air 01/19/17 21:45 69 16 94 01/19/17 21:40 69 15 94 01/19/17 21:10 62 13 97 01/19/17 20:40 72 12 98 01/19/17 20:10 71 22 99 01/19/17 19:54 36.9 73 18 107/69 99 Room Air 01/19/17 19:52 73 01/19/17 19:43 107/69 Laboratory Results 01/19/17 20:02 Red Blood Count 4.10, Mean Corpuscular Volume 90.2, Mean Corpuscular Hemoglobin 30.0, Mean Corpuscular Hemoglobin Concent 33.2, Mean Platelet Volume 9.8, Neutrophils (%) (Auto) 50.5, Lymphocytes (%) (Auto) 38.1, Monocytes (%) (Auto) 8.1, Eosinophils (%) (Auto) 2.8, Basophils (%) (Auto) 0.3, Neutrophils # (Auto) 3.07, Lymphocytes # (Auto) 2.31, Monocytes # (Auto) 0.49, Eosinophils # (Auto) 0.17, Basophils # (Auto) 0.02 01/19/17 20:02 Test 01/19/17 20:02 01/19/17 23:08 White Blood Count 6.07 K/uL (4.8-10.8) Red Blood Count 4.10 M/uL (4.2-5.4) Hemoglobin 12.3 g/dL (12.0-16.0) Hematocrit 37.0 % (37-47) Mean Corpuscular Volume 90.2 fL (80-100) Mean Corpuscular Hemoglobin 30.0 pg (25-34) Mean Corpuscular Hemoglobin Concent 33.2 g/dl (32-36) Platelet Count 373 K/uL (130-400) Mean Platelet Volume 9.8 fL (7.4-10.4) Neutrophils (%) (Auto) 50.5 % Lymphocytes (%) (Auto) 38.1 % Monocytes (%) (Auto) 8.1 % Eosinophils (%) (Auto) 2.8 % Basophils (%) (Auto) 0.3 % Neutrophils # (Auto) 3.07 K/uL (1.4-6.5) Lymphocytes # (Auto) 2.31 K/uL (1.2-3.4) Monocytes # (Auto) 0.49 K/uL (0.11-0.59) Eosinophils # (Auto) 0.17 K/uL (0-0.5) Basophils # (Auto) 0.02 K/uL (0-0.2) RDW Standard Deviation 43.6 fL (36.4-46.3) RDW Coefficient of Variation 13.3 % (11.5-14.5) Immature Granulocyte % (Auto) 0.2 % Immature Granulocyte # (Auto) 0.01 K/uL (0.00-0.02) Prothrombin Time 19.3 SECONDS (9.0-12.0) Prothromb Time International Ratio 1.8 (0.9-1.1) Activated Partial Thromboplast Time 33.8 SECONDS (21.0-31.0) Partial Thromboplastin Ratio 1.3 Anion Gap 5.0 mmol/L (3-11) Est Creatinine Clear Calc Drug Dose 74.7 ml/min Estimated GFR () 90.7 Estimated GFR (Non- 78.2 BUN/Creatinine Ratio 13.9 (10-20) Calcium Level 9.2 mg/dl (8.5-10.1) Total Bilirubin 0.3 mg/dl (0.2-1) Direct Bilirubin < 0.1 mg/dl (0-0.2) Aspartate Amino Transf (AST/SGOT) 18 U/L (15-37) Alanine Aminotransferase (ALT/SGPT) 24 U/L (12-78) Alkaline Phosphatase 81 U/L (45-117) Total Protein 8.0 gm/dl (6.4-8.2) Albumin 3.9 gm/dl (3.4-5.0) Lipase 352 U/L (73-393) Urine Color YELLOW Urine Appearance CLEAR (CLEAR) Urine pH 7.0 (4.5-7.5) Urine Specific [place] 1.011 (1.000-1.030) Urine Protein NEG (NEG) Urine Glucose (UA) NEG (NEG) Urine Ketones NEG (NEG) Urine Occult Blood TRACE (NEG) Urine Nitrite NEG (NEG) Urine Bilirubin NEG (NEG) Urine Urobilinogen NEG (NEG) Urine Leukocyte Esterase NEG (NEG) Urine WBC (Auto) 0 /hpf (0-5) Urine RBC (Auto) 0-4 /hpf (0-4) Urine Hyaline Casts (Auto) 0 /lpf (0-5) Urine Epithelial Cells (Auto) 5-10 /lpf (0-5) Urine Bacteria (Auto) NEG (NEG) Medications Administered Medications (Trade) Dose Ordered Sig/Raz Route Start Time Stop Time Status Last Admin Dose Admin Ondansetron HCl (Zofran Inj) 4 mg NOW STAT IV 01/19/17 20:15 01/19/17 20:16 DC 01/19/17 20:41 4 MG Departure Information Impression Primary Impression: Abdominal pain Dispostion Still a Patient Condition GOOD Referrals Es Villegas M.D. (PCP) Patient Instructions My [facility]
[2017-01-20] MEDS ORDERED: ONDANSETRON HOME PACK 4MG OD TAB PO ONE (01:00)
[2017-01-20 01:13] VITALS: BP 122/71; PULSE 72; O2SAT 94
--- NOTE | 2017-01-20 07:23 | DIAGNOSTIC IMAGING REPORT ---
CT SCAN OF THE ABDOMEN AND PELVIS WITH IV CONTRAST CLINICAL HISTORY: Right lower quadrant abdominal pain. COMPARISON STUDY: Abdominal CT dated 09/21/2014. TECHNIQUE: Following the IV administration of 119 cc of Optiray 320, CT scan of the abdomen and pelvis is performed from the lung bases to the proximal femora. Images are reviewed in the axial, sagittal, and coronal planes. IV contrast was administered without complication. A dose lowering technique was utilized adhering to the principles of ALARA. CT DOSE: 479.18 mGy.cm FINDINGS: Lung bases: The heart is normal in size and without pericardial effusion. The lung bases are clear noting bibasilar atelectasis. There is a tiny hiatal hernia. Liver: The contrast-enhanced liver is normal in size, contour, and attenuation. There is minimal central intrahepatic biliary ductal dilatation. The hepatic veins and portal veins are patent. Gallbladder: Surgically absent noting clips in the gallbladder fossa. Spleen: Normal in size and attenuation. Pancreas: There is mild glandular atrophy. A 1.2 cm ovoid cystic lesion is again seen in the pancreatic tail on image #114. This likely represents a small IPMN. Adrenal glands: Unremarkable. Kidneys: The contrast enhanced kidneys demonstrate mild cortical atrophy and are without hydronephrosis. The kidneys enhance symmetrically. A 3 mm angiomyolipoma is noted in the interpolar left kidney. Abdominal vasculature: The abdominal aorta is normal in course and caliber. Bowel: The small bowel and colon are normal in course and caliber. The appendix is well-visualized and normal. Peritoneum: There is no intraperitoneal free air or abdominal ascites. There is a small fat-containing umbilical hernia. Lymphadenopathy: None. Pelvic viscera: The bladder is decompressed appears thick-walled and hyperemic. The uterus is surgically absent. No adnexal lesion is seen. Skeletal structures: The skeletal structures are osteopenic. No lytic or blastic lesions are seen. IMPRESSION: 1. Although decompressed, the bladder wall appears thickened and hyperemic. Correlate clinically and with urinalysis for evidence of cystitis. 2. The appendix is well-visualized and normal. 3. A 12 mm cystic focus is again seen in the pancreatic tail. This was also present in 2014 and likely represents a small sidebranch IPMN. Electronically signed by: Efra Hatch M.D. 01/20/2017 7:22 AM Dictated Date/Time: 01/20/2017 7:17 AM
[2017-01-24] MEDS ORDERED: ESCI10TA17 PO (01:09)
[2017-01-24] MEDS ORDERED: FENO160T PO (01:11)
[2017-01-24] MEDS ORDERED: FOLI1TAB7 PO (01:11)
[2017-01-24] MEDS ORDERED: NARA2.5T2 PO (16:58)
[2017-01-24] MEDS ORDERED: TRAZ100T29 PO (16:58)
[2017-01-24] MEDS ORDERED: ATV/1 PO (16:58)
[2017-01-24] MEDS ORDERED: FLUT0.15 NAE (16:58)
[2017-01-24] MEDS ORDERED: CLON1TAB3 PO (16:58)
[2017-01-24] MEDS ORDERED: CYCL10TA6 PO (20:04)
[2017-01-24] MEDS ORDERED: OMEG10007 PO (20:04)
[2017-01-24] MEDS ORDERED: ALBUAER INH (20:04)
[2017-01-24] MEDS ORDERED: FLUT1INH INH (20:04)
[2017-01-24] MEDS ORDERED: CMD3 PO (20:19)
[2017-01-24] MEDS ORDERED: WARF3TAB6 PO (20:19)
[2017-01-24] MEDS ORDERED: LPR50X PO (20:21)
[2017-01-24] MEDS ORDERED: LAMO150T32 PO (20:38)
== END 2017-01-20 01:13 | disposition home or self-care (01) ==
LOC: EDBD 19:40 → C.EDB 19:41
DX: R10.31 Right lower quadrant pain (principal); R11.0 Nausea; F32.9 Major depressive disorder, single episode, unspecified; G40.909 Epilepsy, unspecified, not intractable, without status epilepticus; Z86.711 Personal history of pulmonary embolism; Z90.49 Acquired absence of other specified parts of digestive tract; Z90.710 Acquired absence of both cervix and uterus; Z98.890 Other specified postprocedural states; Z79.01 Long term (current) use of anticoagulants; Z79.899 Other long term (current) drug therapy; Z88.0 Allergy status to penicillin; Z88.2 Allergy status to sulfonamides; Z88.8 Allergy status to other drugs, medicaments and biological substances; Z80.9 Family history of malignant neoplasm, unspecified; Z83.3 Family history of diabetes mellitus; Z83.79 Family history of other diseases of the digestive system; Z82.49 Family history of ischemic heart disease and other diseases of the circulatory system

== ENCOUNTER 2017-01-24 21:13 | Emergency (ER) | payer OTHER ==
[~2017-01-24] VITALS: Ht 162.6 cm; Wt 69.4 kg
[~2017-01-24 21:13] MED LIST changes: +ALBUAER INH; +ATV/1 PO; +CLON1TAB3 PO; +CMD3 PO; +CYCL10TA6 PO; +ESCI10TA17 PO; +FENO160T PO; +FLUT0.15 NAE; +FLUT1INH INH; +FOLI1TAB7 PO; -GABA-113 PO; +LAMO150T32 PO; +LPR50X PO; -LVQ750 PO; +NARA2.5T2 PO; -NRN100 PO; +OMEG10007 PO; +TOPAMAX PO; +TRAZ100T29 PO; +WARF3TAB6 PO; -WARF6TAB PO; -WARF6TAB5 PO
[2017-01-24 21:18] VITALS: TEMP 36.6; Ht 162.6 cm; Wt 69.4 kg
--- NOTE | 2017-01-24 21:40 | EMERGENCY ROOM VISIT NOTE ---
History Report prepared by Rj: Jed White Under the Supervision of: Dr. Manpreet Robles M.D. First contact with patient: 21:22 Chief Complaint: ABDOMINAL PAIN Stated Complaint: ABD PAIN,DIARRHEA,NAUSEA SINCE LAST , EAT History of Present Illness The patient is a 51 year old white female with a past medical history of migraine, PE, seizure disorder, cholecystectomy who presents to the ED with a cc of a worsening illness beginning over a week ago. Positive abdominal pain, headaches, blurry vision, nausea, vomiting, diarrhea. Negative shortness of breath, urinary symptoms, rashes, vaginal bleeding, vaginal discharge, recent falls or injuries. The patient states that she was seen here the night the symptoms came on, and nothing abnormal was found. She says that her headaches have been migraine-like with some blurry vision, and have been intermittent. She notes that over the past few days she has developed some chest tightness. She adds that she has been unable to keep any foods or liquids down. The patient says that she has never had symptoms like this before. She takes Coumadin daily. She denies any recent travels, use of stream or well water, or any digestion of abnormal foods before the symptoms came on. Source of History: patient Onset: Over a week ago Position: other (global - illness) Quality: other (not eating or drinking anything) Timing: worsening Associated Symptoms: + headache, + nausea, + vomiting, + abdominal pain, + diarrhea, No SOB, No urinary symptoms, No rash Note: Associated symptoms: Blurry vision. Denies vaginal bleeding or discharge. Review of Systems See HPI for pertinent positives and negatives. A total of ten systems were reviewed and were otherwise negative. Past Medical & Surgical Medical Problems: (1) Anticoagulation goal of INR 2 to 3 (2) Depression (3) Migraine (4) Pulmonary embolism (5) Seizure disorder (6) Sinus tachycardia Surgical Problems: (1) History of arthroscopic knee surgery (2) History of cholecystectomy (3) Status post partial hysterectomy Family History Cancer Diabetes mellitus FATHER Gallbladder disease Heart disease MOTHER Hypertension MOTHER BROTHER FATHER Social History Smoking Status: Never Smoker Alcohol Use: none Drug Use: none Housing Status: lives with family Occupation Status: unemployed Current/Historical Medications Scheduled Clonazepam (Klonopin), 1 MG PO HS Escitalopram (Lexapro), 30 MG PO DAILY Fenofibrate (Tricor), 160 MG PO DAILY Fish Oil ([place]-3), 1 CAP PO BID Fluticasone Furoate-Vilanterol (Breo Ellipta), 1 DOSE INH DAILY Fluticasone Propionate (Nasal) (Flonase Allergy Relief), 2 SPRAYS LINETTE DAILY Folic Acid (Folvite), 1 MG PO DAILY Lamotrigine (Lamictal), 150 MG PO BID Metoprolol Tartrate (Metoprolol Tartrate), 25 MG PO DAILY Topiramate (Topamax), 1 TAB PO BID Trazodone Hcl (Trazodone), 100 MG PO HS Valacyclovir (Valtrex), 500 MG PO prn ud Warfarin Sod (Jantoven), 3 MG PO 5XD Warfarin Sod (Coumadin), 1.5 MG PO 2XWK Scheduled PRN Albuterol Sulfate (Proventil Hfa), 2 PUFFS INH Q4H PRN for SOB/Wheezing Cyclobenzaprine Hcl (Flexeril), 10 MG PO BID PRN for Muscle Spasms Lorazepam (Ativan), 1 MG PO TID PRN for Anxiety Naratriptan Hcl (Amerge), 2.5 MG PO DAILY PRN for Pain Allergies Coded Allergies: Cephalexin (Verified Allergy, Unknown, ., 01/19/17) Penicillins (Verified Allergy, Unknown, ., 01/19/17) Sulfa Antibiotics (Verified Allergy, Unknown, Unknown rxn, 01/19/17) Physical Exam Vital Signs Date Time Temp Pulse Resp B/P (MAP) Pulse Ox O2 Delivery O2 Flow Rate FiO2 01/24/17 22:37 57 18 95/57 95 Room Air 01/24/17 21:42 62 01/24/17 21:18 36.6 68 16 106/71 99 Room Air Physical Exam GENERAL: Awake, alert, well-appearing, NAD HENT: Normocephalic, atraumatic. EYES: Normal conjunctiva. Sclera non-icteric. NECK: Supple. No nuchal rigidity. FROM. RESPIRATORY: CTAB, no rhonchi, wheezing, crackles CARDIAC: RRR, no MRG ABDOMEN: Soft, very mild right-sided epigastric, RUQ, RLQ, suprapubic tenderness , BS+. No rebound, no guarding. MSK: No chest wall TTP, no LE edema. No CVA TTP. NEURO: GCS 15, CN 2-12 intact, moves all 4s on command SKIN: No rash or jaundice noted. Medical Decision & Procedures ER Provider Diagnostic Interpretation: X-ray: Per my interpretation, radiologist review. CHEST ONE VIEW PORTABLE HISTORY: 51 years-old Female ABDOMINAL PAIN/GI acute generalized abdominal pain with nausea COMPARISON: Chest radiograph 05/23/2016 TECHNIQUE: Portable upright AP view of the chest FINDINGS: Cardiomediastinal and hilar silhouettes are within normal limits. No pneumothorax, pleural effusion, focal airspace consolidation or overt pulmonary edema. Bones of the chest are grossly intact. IMPRESSION: No acute cardiopulmonary process. The above report was generated using voice recognition software. It may contain grammatical, syntax or spelling errors. Electronically signed by: Mio Bran M.D. 01/24/2017 10:15 PM Dictated Date/Time: 01/24/2017 10:14 PM Laboratory Results 01/24/17 21:28 Red Blood Count 4.17, Mean Corpuscular Volume 89.9, Mean Corpuscular Hemoglobin 30.7, Mean Corpuscular Hemoglobin Concent 34.1, Mean Platelet Volume 9.9, Neutrophils (%) (Auto) 47.1, Lymphocytes (%) (Auto) 40.9, Monocytes (%) (Auto) 8.3, Eosinophils (%) (Auto) 2.9, Basophils (%) (Auto) 0.5, Neutrophils # (Auto) 2.87, Lymphocytes # (Auto) 2.50, Monocytes # (Auto) 0.51, Eosinophils # (Auto) 0.18, Basophils # (Auto) 0.03 01/24/17 21:28 Test 01/24/17 21:28 01/24/17 23:35 White Blood Count 6.11 K/uL (4.8-10.8) Red Blood Count 4.17 M/uL (4.2-5.4) Hemoglobin 12.8 g/dL (12.0-16.0) Hematocrit 37.5 % (37-47) Mean Corpuscular Volume 89.9 fL (80-100) Mean Corpuscular Hemoglobin 30.7 pg (25-34) Mean Corpuscular Hemoglobin Concent 34.1 g/dl (32-36) Platelet Count 328 K/uL (130-400) Mean Platelet Volume 9.9 fL (7.4-10.4) Neutrophils (%) (Auto) 47.1 % Lymphocytes (%) (Auto) 40.9 % Monocytes (%) (Auto) 8.3 % Eosinophils (%) (Auto) 2.9 % Basophils (%) (Auto) 0.5 % Neutrophils # (Auto) 2.87 K/uL (1.4-6.5) Lymphocytes # (Auto) 2.50 K/uL (1.2-3.4) Monocytes # (Auto) 0.51 K/uL (0.11-0.59) Eosinophils # (Auto) 0.18 K/uL (0-0.5) Basophils # (Auto) 0.03 K/uL (0-0.2) RDW Standard Deviation 42.9 fL (36.4-46.3) RDW Coefficient of Variation 13.2 % (11.5-14.5) Immature Granulocyte % (Auto) 0.3 % Immature Granulocyte # (Auto) 0.02 K/uL (0.00-0.02) Anion Gap 8.0 mmol/L (3-11) Est Creatinine Clear Calc Drug Dose 72.4 ml/min Estimated GFR () 89.4 Estimated GFR (Non- 77.1 BUN/Creatinine Ratio 19.1 (10-20) Calcium Level 9.2 mg/dl (8.5-10.1) Total Bilirubin 0.3 mg/dl (0.2-1) Direct Bilirubin < 0.1 mg/dl (0-0.2) Aspartate Amino Transf (AST/SGOT) 19 U/L (15-37) Alanine Aminotransferase (ALT/SGPT) 20 U/L (12-78) Alkaline Phosphatase 77 U/L (45-117) Troponin I < 0.015 ng/ml (0-0.045) Total Protein 8.1 gm/dl (6.4-8.2) Albumin 4.1 gm/dl (3.4-5.0) Lipase 277 U/L (73-393) Urine Color YELLOW Urine Appearance CLEAR (CLEAR) Urine pH 5.5 (4.5-7.5) Urine Specific [place] 1.026 (1.000-1.030) Urine Protein NEG (NEG) Urine Glucose (UA) NEG (NEG) Urine Ketones NEG (NEG) Urine Occult Blood TRACE (NEG) Urine Nitrite NEG (NEG) Urine Bilirubin NEG (NEG) Urine Urobilinogen NEG (NEG) Urine Leukocyte Esterase NEG (NEG) Urine WBC (Auto) 1-5 /hpf (0-5) Urine RBC (Auto) 0-4 /hpf (0-4) Urine Hyaline Casts (Auto) 0 /lpf (0-5) Urine Epithelial Cells (Auto) >30 /lpf (0-5) Urine Bacteria (Auto) NEG (NEG) Urine Crystals CALCIUM OXALATE (NONE Urine Mucus PRESENT (NONE PRSENT) Laboratory results reviewed by me Medications Administered Medications (Trade) Dose Ordered Sig/Raz Route Start Time Stop Time Status Last Admin Dose Admin Sodium Chloride 1,000 ml @ 999 mls/hr Q1H1M STAT IV 01/24/17 21:46 01/24/17 22:46 DC 01/24/17 22:24 999 MLS/HR Prochlorperazine Edisylate (Compazine Inj) 10 mg NOW STAT IV 01/24/17 21:46 01/24/17 21:47 DC 01/24/17 22:24 10 MG Morphine Sulfate (MoRPHine SULFATE INJ) 4 mg NOW STAT IV 01/24/17 21:46 01/24/17 21:47 DC 01/24/17 22:24 4 MG ECG Indication: abdominal pain Rate (beats per minute): 56 Rhythm: sinus bradycardia Findings: no ectopy, other (normal intervals, normal axis, T-wave flattening inferiorly) ED Course 2130: The patient was evaluated in room B6. A complete history and physical exam was performed. 0020: I reevaluated the patient and she is resting comfortably. Discussed results and discharge instructions: she verbalized understanding and agreement. The patient is ready for discharge. Medical Decision The patient is a 51 year old white female with a past medical history of migraine, PE, seizure disorder who presents to the ED with a cc of a persistent illness beginning over a week ago. Positive abdominal pain, headaches, chest pain, blurry vision, nausea, vomiting, diarrhea. Negative shortness of breath, urinary symptoms, rashes, vaginal bleeding, vaginal discharge, recent falls or injuries. Differential diagnosis: Etiologies such as appendicitis, diverticulitis, PUD, biliary pathology, UTI, pancreatitis, obstruction, mesenteric ischemia, aortic pathology, infections, inflammatory bowel disease, renal colic, as well as others were entertained. Patient was seen and evaluated at the bedside. Patient was recently seen a week prior where she had blood work completed along with a CT of the abdomen pelvis with oral and IV contrast. Patient was found to have nothing acute. Patient still complaining similar symptoms. Upon exam patient did have some mild abdominal tenderness but had no guarding or rebound. Patient was fairly well-appearing. Patient was afebrile. Patient had no recent antibiotic use, travel, sick contacts, food ingestions. Upon reassessment of the patient she was sleeping and fairly comfortable. Patient was told of all her laboratory findings was still pending a urinalysis. Patient's kidney function was normal. Patient felt T and lipase within normal limits. Patient was able to give a urine sample which was sent. Patient did have trace blood but this was unchanged from priors. Patient did have some calcium oxalate crystals. Patient did have her recent re-sent CT scan which did not show any kidney stones currently richer shows that kidney stones easily take at least several months to form. Given this it is unlikely that the patient has developed kidney stones over the last week and thus no further imaging was obtained. Furthermore the patient was feeling improved and was able tolerate by mouth. Patient was told of all findings. Patient was counseled on advancing her diet as tolerated with clear liquids and soft diet until she could tolerate additional solids. Patient was told that she may not be hungry to tolerate solid foods but as long she was able to tolerate liquids that was okay. Patient was given strict follow-up, discharge, and return precautions. All questions were answered. Patient was deemed suitable for outpatient follow-up at this time. Patient agreed with the plan of care and was safely discharged home. Medication Reconcilliation Current Medication List: was personally reviewed by me Blood Pressure Screening Patient's blood pressure: Normal blood pressure Impression Primary Impression: Abdominal pain Additional Impression: Gastroenteritis Scribe Attestation The scribe's documentation has been prepared under my direction and personally reviewed by me in its entirety. I confirm that the note above accurately reflects all work, treatment, procedures, and medical decision making performed by me. Departure Information Dispostion Home / Self-Care Prescriptions Metoclopramide (Reglan) 10 Mg Tab 10 MG PO Q6H Y for Nausea for 3 Days, #12 TAB Prov: Manpreet Robles M.D. 01/25/17 Referrals Es Villegas M.D. (PCP) Patient Instructions Abdominal Pain, ED Gastroenteritis Non Infec, My [facility] Additional Instructions Please return to the emergency department if you have worsening or recurrent symptoms not amenable to at-home treatment. Please call for a follow-up appointment with her primary care physician. Please take your medications as prescribed. If you have other concerns and/or complaints please feel free to also call your primary care physician's office or return the ED for further evaluation, management, and treatment. You received narcotic or benzodiazepene medication while in the emergency room today. This is an addictive medication that may cause drowziness as well as constipation. Do not drive, operate heavy machinery, or drink alcohol under the influence of this medication. You may take 600 mg Ibuprofen every 6 hours as needed for pain with food for no more than 2 consecutive days. You may take tylenol 1000 mg every 6 hours as needed for pain. You may take motrin and tylenol separately or at the same time. Slowly advance your diet w/ clear liquids and soft foods, broths, soups, pastas and then advance to more regular foods. You may not be hungry for food but that' s ok as long as you can tolerate liquids. If you're not eating, make sure the liquids have some calories in them to help w/ nutrition. Take your medications as prescribed. If taking an antibiotic consider taking a probiotic and/or eating yogurt, but at the least, please take with food as it can cause upset stomach. If culture results are not available at discharge, if they are positive for concern of infection, you will be informed of the results as soon as they are available. You have been examined and treated today on an emergency basis only. This is not a substitute for, or an effort to provide, complete comprehensive medical care. It is impossible to recognize and treat all injuries or illnesses in a single emergency department visit. It is therefore important that you follow up closely with [facility], your PCP, and/or your specialist(s). Call as soon as possible for an appointment. Thank you for your time and consideration. I look forward to speaking with you again soon. Please don't hesitate to call us if you have any questions. Problem Qualifiers Primary Impression: Abdominal pain Abdominal location: generalized Qualified Codes: R10.84 - Generalized abdominal pain
[2017-01-24] MEDS ORDERED: PROCHLORPERAZINE 5 MG/ML 2 ML VIAL IV STA (21:46)
[2017-01-24] MEDS ORDERED: MoRPHine SULFATE 4 MG/ML 1 ML CARP\\VIAL IV STA (21:46)
[2017-01-24] MEDS ORDERED: SODIUM CHLORIDE 0.9% 1000ML 1,000 ML IV STA (21:46)
[2017-01-24] MEDS ORDERED: VALA500T60 PO (21:49)
[2017-01-24] MEDS ORDERED: TOPI25TA10 PO (21:49)
[2017-01-24 21:58] LABS: BASO % 0.5 %; BASO ABS # 0.03 K/uL (0-0.2); COMPLETE YES; EOS % 2.9 %; HEMATOCRIT 37.5 % (37-47); IG% 0.3 %; LYMPH % 40.9 %; MEAN CELL VOLUME 89.9 fL (80-100); MEAN CORPUSCULAR HEMOGLOBIN 30.7 pg (25-34); MEAN CORPUSCULAR HGB CONC 34.1 g/dl (32-36); MEAN PLATELET VOLUME 9.9 fL (7.4-10.4); MONO % 8.3 %; NEUT % 47.1 %; PLATELET COUNT 328 K/uL (130-400); RED BLOOD COUNT 4.17 M/uL (4.2-5.4); WHITE BLOOD COUNT 6.11 K/uL (4.8-10.8)
[2017-01-24 22:06] LABS: ALT/SGPT 20 U/L (12-78); BLOOD UREA NITROGEN 16 mg/dl (7-18); BUN/CREATININE RATIO 19.1 (10-20); CALCIUM 9.2 mg/dl (8.5-10.1); CARBON DIOXIDE 25 mmol/L (21-32); CHLORIDE 108 mmol/L (98-107); CREATININE 0.86 mg/dl (0.60-1.20); GLUCOSE 89 mg/dl (70-99); POTASSIUM 3.4 mmol/L (3.5-5.1); SODIUM 141 mmol/L (136-145)
[2017-01-24 22:11] LABS: ALKALINE PHOSPHATASE 77 U/L (45-117); AST/SGOT 19 U/L (15-37)
--- NOTE | 2017-01-24 22:16 | DIAGNOSTIC IMAGING REPORT ---
CHEST ONE VIEW PORTABLE HISTORY: 51 years-old Female ABDOMINAL PAIN/GI acute generalized abdominal pain with nausea COMPARISON: Chest radiograph 05/23/2016 TECHNIQUE: Portable upright AP view of the chest FINDINGS: Cardiomediastinal and hilar silhouettes are within normal limits. No pneumothorax, pleural effusion, focal airspace consolidation or overt pulmonary edema. Bones of the chest are grossly intact. IMPRESSION: No acute cardiopulmonary process. The above report was generated using voice recognition software. It may contain grammatical, syntax or spelling errors. Electronically signed by: Mio Bran M.D. 01/24/2017 10:15 PM Dictated Date/Time: 01/24/2017 10:14 PM
[2017-01-25 00:05] LABS: URINE APPEARANCE CLEAR (CLEAR); URINE BILIRUBIN NEG (NEG); URINE COLOR YELLOW; URINE EPITHELIAL CELL AUTO >30 /lpf (0-5); URINE NITRITE NEG (NEG); URINE PH 5.5 (4.5-7.5); URINE SPECIFIC GRAVITY 1.026 (1.000-1.030); UROBILINOGEN NEG (NEG); ZZUR CULT IF INDIC CLEAN CATCH NO
[2017-01-25 00:17] LABS: MANUAL MICROSCOPIC REQUIRED? NO; REVIEW REQ? YES
[2017-01-25 00:23] LABS: URINE MUCUS PRESENT (NONE PRSENT)
[2017-01-25] MEDS ORDERED: METO-157 PO (00:44)
[2017-01-25 01:00] VITALS: BP 101/64; PULSE 61; O2SAT 98
== END 2017-01-25 01:01 | disposition home or self-care (01) ==
LOC: C.EDB 21:14
DX: R10.84 Generalized abdominal pain (principal); K52.9 Noninfective gastroenteritis and colitis, unspecified; F32.9 Major depressive disorder, single episode, unspecified; G43.909 Migraine, unspecified, not intractable, without status migrainosus; Z86.73 Personal history of transient ischemic attack (TIA), and cerebral infarction without residual deficits; G40.909 Epilepsy, unspecified, not intractable, without status epilepticus; Z80.9 Family history of malignant neoplasm, unspecified; Z83.3 Family history of diabetes mellitus; Z82.49 Family history of ischemic heart disease and other diseases of the circulatory system; Z79.01 Long term (current) use of anticoagulants; Z79.899 Other long term (current) drug therapy

== ENCOUNTER 2017-11-14 16:58 | Emergency (ER) | payer OTHER ==
[~2017-11-14] VITALS: Ht 160 cm; Wt 65.0 kg
[~2017-11-14 16:58] MED LIST changes: +CLON1TAB10 PO; -CLON1TAB3 PO; -FOLI1TAB7 PO; +FOLI1TAB8 PO; +LAMO150T PO; -LAMO150T32 PO; -TOPAMAX PO; +TOPI25TA10 PO; +VALA500T60 PO
[2017-11-14 16:59] VITALS: TEMP 36.8; Ht 160 cm; Wt 65.0 kg
[2017-11-14] MEDS ORDERED: SODIUM CHLORIDE 0.9% 1000ML 1,000 ML IV STA (17:23)
--- NOTE | 2017-11-14 17:45 | DIAGNOSTIC IMAGING REPORT ---
CT SCAN OF THE BRAIN WITHOUT IV CONTRAST CLINICAL HISTORY: Head injury. Headache. COMPARISON STUDY: CT of the brain dated 03/05/2015. TECHNIQUE: Unenhanced axial CT scan of the brain is performed from the vertex to the skull base. A dose lowering technique was utilized adhering to the principles of ALARA. CT DOSE: 855.71 mGy.cm FINDINGS: Brain parenchyma: The brain parenchyma is normal in appearance. There is no hemorrhage, mass effect, or evidence of acute territorial ischemia by CT criteria. [place]-white matter is preserved. No extra-axial fluid collection is seen. Ventricles, sulci, cisterns: Normal in configuration. Intracranial vasculature: There is mild atherosclerotic calcification of the cavernous carotid arteries. Calvarium: There is no depressed calvarial fracture. Sinuses and mastoids: The visualized paranasal sinuses are clear. The mastoid air cells are well pneumatized. Orbits: The bony orbits are grossly intact. IMPRESSION: No acute intracranial abnormality. Electronically signed by: Efra Hatch M.D. 11/14/2017 5:44 PM Dictated Date/Time: 11/14/2017 5:41 PM
--- NOTE | 2017-11-14 17:58 | DIAGNOSTIC IMAGING REPORT ---
CT SCAN OF THE CERVICAL SPINE CLINICAL HISTORY: Neck pain. COMPARISON STUDY: No priors. TECHNIQUE: CT scan of the cervical spine is performed from the skull base to the upper thoracic spine. Images are reviewed in the axial, sagittal, and coronal planes. IV contrast was not administered for this examination. A dose lowering technique was utilized adhering to the principles of ALARA. FINDINGS: Skeletal structures: The skeletal structures are well mineralized. There is no evidence of fracture or subluxation involving the cervical spine. Vertebral body height and alignment are maintained. There is straightening of the cervical lordosis. Small anterior osteophytes are noted in the lower cervical spine. The odontoid process and lateral masses are intact. The atlantoaxial articulation is preserved noting minimal productive degenerative change. The spinous processes appear intact. Intervertebral discs: The disc spaces are well maintained. Central canal: Grossly patent. Soft tissues: The prevertebral and paraspinous soft tissues are within normal limits. Low-attenuation thyroid nodules measure up to 8 mm. Calvarium: The visualized calvarium at the skull base appears intact. Brain parenchyma: Partially visualized brain parenchyma the skull base is within normal limits. Sinuses and mastoids: The visualized paranasal sinuses are clear. The mastoid air cells are well pneumatized. Lung apices: Clear as visualized. IMPRESSION: There is no evidence of fracture or subluxation involving the cervical spine. Electronically signed by: Efra Hatch M.D. 11/14/2017 5:56 PM Dictated Date/Time: 11/14/2017 5:44 PM
[2017-11-14 18:03] LABS: BASO % 0.2 %; BASO ABS # 0.01 K/uL (0-0.2); EOS % 2.2 %; EOS ABS # 0.09 K/uL (0-0.5); HEMATOCRIT 36.3 % (37-47); LYMPH % 39.5 %; MEAN CELL VOLUME 91.4 fL (80-100); MEAN CORPUSCULAR HEMOGLOBIN 30.2 pg (25-34); MEAN CORPUSCULAR HGB CONC 33.1 g/dl (32-36); MEAN PLATELET VOLUME 9.4 fL (7.4-10.4); MONO % 6.2 %; MONO ABS # 0.25 K/uL (0.11-0.59); NEUT % 51.9 %; PLATELET COUNT 216 K/uL (130-400); RED CELL DISTRIBUTION WIDTH CV 13.5 % (11.5-14.5); RED CELL DISTRIBUTION WIDTH SD 44.8 fL (36.4-46.3); WHITE BLOOD COUNT 4.05 K/uL (4.8-10.8)
[2017-11-14] MEDS ORDERED: PROCHLORPERAZINE 5 MG/ML 2 ML VIAL IV STA (18:03)
[2017-11-14] MEDS ORDERED: DiphenhydrAMINE HCL 50 MG/ML VIAL IV STA (18:03)
[2017-11-14 18:13] LABS: INR 1.4 (0.9-1.1); PTT PATIENT 30.3 SECONDS (21.0-31.0)
[2017-11-14 18:22] LABS: ALBUMIN 3.6 gm/dl (3.4-5.0); CALCIUM 8.5 mg/dl (8.5-10.1); CREATININE 0.96 mg/dl (0.60-1.20); POTASSIUM 3.5 mmol/L (3.5-5.1)
--- NOTE | 2017-11-14 20:43 | EMERGENCY ROOM VISIT NOTE ---
ED Visit Note First contact with patient: 17:07 CHIEF COMPLAINT: Migraine headache, worse than normal HISTORY OF PRESENT ILLNESS: This 51-year-old female patient presented to the emergency department, ambulatory, with a gradual onset of a severe generalized headache that started approximately 1 week ago. The patient states she does have chronic migraines, but the constant visual disturbances, dizziness, and weakness in her right upper extremity is different than normal. There has been associated photophobia, phonophobia, nausea and vomiting. The patient denies fever or chills recently, and there is no numbness of the extremities. The patient does feel that her speech is slightly slurred. She is on Coumadin, and does report striking her head 1 week ago on the car door frame and again 3 days ago when she fell backward and struck her head on the door jam. She does report neck pain as well. The pain is severe, constant, and it is slowly increasing in severity. The patient rates the pain as pounding and 8/10. The patient has taken Excedrin Migraine and rizatriptan without improvement in her symptoms. The patient denies any history of stroke or intracranial hemorrhage. REVIEW OF SYSTEMS: A 10 system review of systems was performed with positives and pertinent negatives listed in the history of present illness. All other systems were reviewed and are negative. ALLERGIES: Cephalexin, penicillin, sulfa PMH: Migraines, seizures, seasonal allergies, pulmonary emboli, anxiety, depression, hypertension SOCIAL HISTORY: The patient lives locally with family. She denies drug, alcohol , tobacco use. PHYSICAL EXAM: Vital Signs: Reviewed Nurse's notes, vital signs stable. GENERAL : This is a 51-year-old white female, who appears in pain, but non toxic in appearance and in no acute distress. MENTAL STATUS: Alert, oriented, and coherent. HEENT: Normocephalic. PERRLA. EOMI. no swelling or discoloration of the tissue surrounding the eyes. Nares patent without edema, erythema, or drainage. Tympanic membranes pearly [place] without erythema or effusion bilaterally. No abraham sign. Mucous membranes moist. NECK: Tenderness of the cervical spine on palpation. Supple, no nuchal rigidity, no lymphadenopathy. HEART: Regular rhythm and normal rate without murmurs, ectopy, gallops, or rubs. LUNGS: Clear to auscultation bilaterally without wheezes, rales or rhonchi. No dullness to percussion. No accessory muscle use. No retractions. SKIN: Normal. NEUROLOGICAL: Pupils are round, equal and react to light. The optic fundi are normal and the discs are flat. The patient moves all extremities well. Very poor balance. Normal mini mental status examination. Negative pronator drift. Positive Romberg. RADIOLOGY: CT SCAN OF THE BRAIN WITHOUT IV CONTRAST CLINICAL HISTORY: Head injury. Headache. COMPARISON STUDY: CT of the brain dated 03/05/2015. TECHNIQUE: Unenhanced axial CT scan of the brain is performed from the vertex to the skull base. A dose lowering technique was utilized adhering to the principles of ALARA. CT DOSE: 855.71 mGy.cm FINDINGS: Brain parenchyma: The brain parenchyma is normal in appearance. There is no hemorrhage, mass effect, or evidence of acute territorial ischemia by CT criteria. [place]-white matter is preserved. No extra-axial fluid collection is seen. Ventricles, sulci, cisterns: Normal in configuration. Intracranial vasculature: There is mild atherosclerotic calcification of the cavernous carotid arteries. Calvarium: There is no depressed calvarial fracture. Sinuses and mastoids: The visualized paranasal sinuses are clear. The mastoid air cells are well pneumatized. Orbits: The bony orbits are grossly intact. IMPRESSION: No acute intracranial abnormality. Electronically signed by: Efra Hatch M.D. 11/14/2017 5:44 PM Dictated Date/Time: 11/14/2017 5:[address] SCAN OF THE CERVICAL SPINE CLINICAL HISTORY: Neck pain. COMPARISON STUDY: No priors. TECHNIQUE: CT scan of the cervical spine is performed from the skull base to the upper thoracic spine. Images are reviewed in the axial, sagittal, and coronal planes. IV contrast was not administered for this examination. A dose lowering technique was utilized adhering to the principles of ALARA. FINDINGS: Skeletal structures: The skeletal structures are well mineralized. There is no evidence of fracture or subluxation involving the cervical spine. Vertebral body height and alignment are maintained. There is straightening of the cervical lordosis. Small anterior osteophytes are noted in the lower cervical spine. The odontoid process and lateral masses are intact. The atlantoaxial articulation is preserved noting minimal productive degenerative change. The spinous processes appear intact. Intervertebral discs: The disc spaces are well maintained. Central canal: Grossly patent. Soft tissues: The prevertebral and paraspinous soft tissues are within normal limits. Low-attenuation thyroid nodules measure up to 8 mm. Calvarium: The visualized calvarium at the skull base appears intact. Brain parenchyma: Partially visualized brain parenchyma the skull base is within normal limits. Sinuses and mastoids: The visualized paranasal sinuses are clear. The mastoid air cells are well pneumatized. Lung apices: Clear as visualized. IMPRESSION: There is no evidence of fracture or subluxation involving the cervical spine. Electronically signed by: Efra Hatch M.D. 11/14/2017 5:56 PM Dictated Date/Time: 11/14/2017 5:44 PM EMERGENCY DEPARTMENT COURSE: I examined the patient. Symptoms were very concerning due to the patient's Coumadin use and recent trauma. Her balance is very off and she is complaining of some light sensitivity and visual disturbances. Because of the change from the patient's normal migraines, CT scan performed and reviewed by myself and radiologist as above. No obvious acute intracranial abnormality noted. Labs did not reveal any significant anemia, leukocytosis, thrombocytopenia. Renal, hepatic function and electrolytes are without significant abnormalities. Coagulation factors were without significant abnormalities. Urinalysis without signs of infection. The patient was treated with normal saline solution, Benadryl, and Compazine. She was reassessed and notes significant improvement in her symptoms. Her balance has improved significantly. She does feel well enough for discharge. I advised the patient to follow-up very closely tomorrow with her primary care provider and advised her of the risks while on Coumadin of falls and had bleeds. The patient verbalized understanding. All questions answered the patient satisfaction prior to discharge. Discharge instructions reviewed, patient was discharged home in good condition. I did discuss the case with my attending. We were in agreement with the treatment plan. I attest that I have personally reviewed the patient's current medication list. Patient was found to have normal blood pressure on screening and does not require follow-up. The differential diagnosis includes acute intracranial bleed, meningitis, encephalitis, mass or mass effect, sinusitis, infection, tumor, headache, temporal arteritis and carbon monoxide exposure, and migraine. DIAGNOSIS: Migraine headache The chart was completed utilizing [employer] voice recognition software. Grammatical errors, random word insertions, pronoun errors, and incomplete sentences are an occasional consequence of this system due to software limitations, ambient noise, and hardware issues. Any formal questions or concerns about the content, text, or information contained within the body of this dictation should be directly addressed to the provider for clarification. Problem List Medical Problems: (1) Anticoagulation goal of INR 2 to 3 Status: Chronic (2) Depression Status: Chronic (3) Migraine Status: Chronic (4) Pulmonary embolism Status: Chronic (5) Seizure disorder Status: Chronic (6) Sinus tachycardia Status: Chronic Surgical Problems: (1) History of arthroscopic knee surgery Status: Chronic (2) History of cholecystectomy Status: Chronic (3) Status post partial hysterectomy Status: Chronic Current/Historical Medications Scheduled Clonazepam (Klonopin), 1 MG PO HS Escitalopram (Lexapro), 30 MG PO DAILY Fenofibrate (Tricor), 160 MG PO DAILY Fish Oil (Freeland-3), 1 CAP PO BID Fluticasone Propionate (Nasal) (Flonase Allergy Relief), 2 SPRAYS LINETTE DAILY Folic Acid (Folvite), 1 MG PO DAILY Lamotrigine (Lamictal), 150 MG PO BID Metoprolol Tartrate (Metoprolol Tartrate), 25 MG PO DAILY Topiramate (Topamax), 1 TAB PO BID Trazodone Hcl (Trazodone), 100 MG PO HS Valacyclovir (Valtrex), 500 MG PO prn ud Warfarin Sod (Jantoven), 3 MG PO 5XD Warfarin Sod (Coumadin), 1.5 MG PO 2XWK Scheduled PRN Albuterol Sulfate (Proventil Hfa), 2 PUFFS INH Q4H PRN for SOB/Wheezing Cyclobenzaprine Hcl (Flexeril), 10 MG PO BID PRN for Muscle Spasms Naratriptan Hcl (Amerge), 2.5 MG PO DAILY PRN for Pain Allergies Coded Allergies: Cephalexin (Verified Allergy, Unknown, ., 11/14/17) Penicillins (Verified Allergy, Unknown, ., 11/14/17) Sulfa Antibiotics (Verified Allergy, Unknown, Unknown rxn, 11/14/17) Vital Signs Date Time Temp Pulse Resp B/P (MAP) Pulse Ox O2 Delivery O2 Flow Rate FiO2 11/14/17 20:56 69 18 97/64 95 11/14/17 19:23 73 18 116/75 97 Room Air 11/14/17 16:59 36.8 83 20 116/79 100 Room Air Laboratory Results 11/14/17 17:50 Red Blood Count 3.97, Mean Corpuscular Volume 91.4, Mean Corpuscular Hemoglobin 30.2, Mean Corpuscular Hemoglobin Concent 33.1, Mean Platelet Volume 9.4, Neutrophils (%) (Auto) 51.9, Lymphocytes (%) (Auto) 39.5, Monocytes (%) (Auto) 6.2, Eosinophils (%) (Auto) 2.2, Basophils (%) (Auto) 0.2, Neutrophils # (Auto) 2.10, Lymphocytes # (Auto) 1.60, Monocytes # (Auto) 0.25, Eosinophils # (Auto) 0.09, Basophils # (Auto) 0.01 11/14/17 17:50 Test 11/14/17 17:50 11/14/17 19:55 White Blood Count 4.05 K/uL (4.8-10.8) Red Blood Count 3.97 M/uL (4.2-5.4) Hemoglobin 12.0 g/dL (12.0-16.0) Hematocrit 36.3 % (37-47) Mean Corpuscular Volume 91.4 fL (80-100) Mean Corpuscular Hemoglobin 30.2 pg (25-34) Mean Corpuscular Hemoglobin Concent 33.1 g/dl (32-36) Platelet Count 216 K/uL (130-400) Mean Platelet Volume 9.4 fL (7.4-10.4) Neutrophils (%) (Auto) 51.9 % Lymphocytes (%) (Auto) 39.5 % Monocytes (%) (Auto) 6.2 % Eosinophils (%) (Auto) 2.2 % Basophils (%) (Auto) 0.2 % Neutrophils # (Auto) 2.10 K/uL (1.4-6.5) Lymphocytes # (Auto) 1.60 K/uL (1.2-3.4) Monocytes # (Auto) 0.25 K/uL (0.11-0.59) Eosinophils # (Auto) 0.09 K/uL (0-0.5) Basophils # (Auto) 0.01 K/uL (0-0.2) RDW Standard Deviation 44.8 fL (36.4-46.3) RDW Coefficient of Variation 13.5 % (11.5-14.5) Immature Granulocyte % (Auto) 0.0 % Immature Granulocyte # (Auto) 0.00 K/uL (0.00-0.02) Prothrombin Time 14.7 SECONDS (9.0-12.0) Prothromb Time International Ratio 1.4 (0.9-1.1) Activated Partial Thromboplast Time 30.3 SECONDS (21.0-31.0) Partial Thromboplastin Ratio 1.2 Anion Gap 8.0 mmol/L (3-11) Est Creatinine Clear Calc Drug Dose 61.4 ml/min Estimated GFR () 78.3 Estimated GFR (Non- 67.5 BUN/Creatinine Ratio 10.8 (10-20) Calcium Level 8.5 mg/dl (8.5-10.1) Total Bilirubin 0.4 mg/dl (0.2-1) Aspartate Amino Transf (AST/SGOT) 16 U/L (15-37) Alanine Aminotransferase (ALT/SGPT) 20 U/L (12-78) Alkaline Phosphatase 84 U/L (45-117) Total Protein 7.0 gm/dl (6.4-8.2) Albumin 3.6 gm/dl (3.4-5.0) Globulin 3.4 gm/dl (2.5-4.0) Albumin/Globulin Ratio 1.1 (0.9-2) Urine Color YELLOW Urine Appearance CLEAR (CLEAR) Urine pH 7.5 (4.5-7.5) Urine Specific [place] 1.007 (1.000-1.030) Urine Protein NEG (NEG) Urine Glucose (UA) NEG (NEG) Urine Ketones NEG (NEG) Urine Occult Blood TRACE (NEG) Urine Nitrite NEG (NEG) Urine Bilirubin NEG (NEG) Urine Urobilinogen NEG (NEG) Urine Leukocyte Esterase TRACE (NEG) Urine WBC (Auto) 1-5 /hpf (0-5) Urine RBC (Auto) 0-4 /hpf (0-4) Urine Hyaline Casts (Auto) 1-5 /lpf (0-5) Urine Epithelial Cells (Auto) 10-20 /lpf (0-5) Urine Bacteria (Auto) NEG (NEG) Medications Administered Medications (Trade) Dose Ordered Sig/Raz Route Start Time Stop Time Status Last Admin Dose Admin Sodium Chloride 1,000 ml @ 999 mls/hr Q1H1M STAT IV 11/14/17 17:23 11/14/17 18:23 DC 11/14/17 18:17 999 MLS/HR Prochlorperazine Edisylate (Compazine Inj) 10 mg NOW STAT IV 11/14/17 18:03 11/14/17 18:05 DC 11/14/17 18:17 10 MG Diphenhydramine HCl (Benadryl Inj) 25 mg NOW STAT IV 11/14/17 18:03 11/14/17 18:05 DC 11/14/17 18:17 25 MG Departure Information Impression Primary Impression: Migraine Dispostion Home / Self-Care Condition GOOD Referrals Yolande Aguilar D.O. (PCP) Patient Instructions ED Headache Migraine, [facility] Additional Instructions He was seen in the emergency department today for a headache. As discussed, labs and imaging did not reveal any acute causes for her symptoms. Rest today in a quiet, peaceful, dark environment and get a full 8-10 hrs of sleep tonight. Avoid loud noises, smoke/smoking, alcohol, bright lights, stress, or physical exertion today to minimize the chance the headache may return. Continue current medications as prescribed. Acetaminophen(Tylenol) may be used for fever or pain. Use 1000mg every six hours as needed. Avoid using more than 3000mg in a 24 hour period. Return to the ER for passing out, worsening headache, vision problems, neck stiffness/pain, fevers, vomiting, worsening of your condition, or as needed. Follow up with your primary physician tomorrow for a recheck of your current condition. Problem Qualifiers Primary Impression: Migraine Migraine type: with aura Status migrainosus presence: with status migrainosus Intractability: intractable Qualified Codes: G43.111 - Migraine with aura, intractable, with status migrainosus
[2017-11-14 20:56] VITALS: BP 97/64; PULSE 69; O2SAT 95
== END 2017-11-14 21:00 | disposition home or self-care (01) ==
LOC: C.EDB 16:58 → C.EDC 21:00
DX: G43.111 Migraine with aura, intractable, with status migrainosus (principal); W22.8XXA Striking against or struck by other objects, initial encounter; W19.XXXA Unspecified fall, initial encounter; I10 Essential (primary) hypertension; G40.909 Epilepsy, unspecified, not intractable, without status epilepticus; F41.8 Other specified anxiety disorders; Z86.711 Personal history of pulmonary embolism; Z79.01 Long term (current) use of anticoagulants; Z79.899 Other long term (current) drug therapy; Z88.1 Allergy status to other antibiotic agents; Z88.2 Allergy status to sulfonamides; Z88.0 Allergy status to penicillin

== ENCOUNTER 2023-10-13 17:41 | Inpatient (IN) ==
[2023-10-13] MEDS: ACETAMINOPHEN 325 MG TAB PO STA (18:15)
[2023-10-13 18:43] LABS: Eosinophils # (auto) 0.02 K/uL (0.00-0.50); Eosinophils % (auto) 0.8 %; Hematocrit (blood only) 37.7 % (37.0-47.0); Hemoglobin 12.6 g/dl (12.0-16.0); Immature Granulocytes # (auto) 0.01 K/uL (0.01-0.20); Immature Granulocytes % (auto) 0.4 %; Lymphocytes # (auto) 0.71 K/uL (1.20-3.40); Lymphocytes % (auto) 28.1 %; Mean Corpuscular Hemoglobin 29.9 pg (25.0-34.0); Mean Corpuscular Hgb Conc 33.4 g/dL (32.0-36.0); Mean Corpuscular Volume 89.5 fL (80.0-100.0); Mean Platelet Volume 9.8 fL (9.4-12.4); Monocytes # (auto) 0.24 K/uL (0.11-0.59); Monocytes % (auto) 9.5 %; Neutrophils # (auto) 1.55 K/uL (1.40-6.50); Neutrophils % (auto) 61.2 %; Platelet Count 221 K/uL (130-400); RDW Coefficient of Variation 12.7 % (11.5-14.5); RDW Standard Deviation 41.7 fL (36.4-46.3); Red Blood Count 4.21 M/uL (4.20-5.40); White Blood Count 2.53 K/ul (4.8-10.8)
[2023-10-13 18:50] LABS: Albumin Globulin Ratio 1.2 (0.9-2); Albumin Level 4.3 gm/dl (3.4-5.0); BUN Creatinine Ratio 15.5 (10-20); Bilirubin,Total 0.5 mg/dl (0.2-1.0); Calcium 8.9 mg/dl (8.6-10.3); Creatinine Clr Calc Pharmacy 63.2 ml/min; Est GFR (African American) 74.1 ml/min; Est GFR (Non-African American) 63.9 ml/min; Globulin 3.5 gm/dl (2.5-4.0); Magnesium 1.6 mg/dl (1.7-2.4); Potassium 3.8 mmol/L (3.5-5.1); Total Protein 7.8 gm/dl (6.0-8.3)
--- NOTE | 2023-10-13 18:53 | XRay Report ---
XR chest 1V not portable CLINICAL HISTORY: Sepsis TECHNIQUE: Single frontal radiograph of the chest was obtained. Comparison: Comparison is made to chest radiograph 01/24/2017 FINDINGS: No lines and tubes are seen. The cardiomediastinal silhouette is normal. The lungs are clear. No evid ence of pleural effusion or pneumothorax. IMPRESSION: No acute chest disease. ACT 112: Negative or not required by law. Electronically signed by: Lobo Mills M.D. 10/13/2023 6:52 PM
[2023-10-13 18:57] LABS: Troponin I High Sensitivity 3.9 pg/ml (0-14)
[2023-10-13 19:12] LABS: Partial Thromboplastin Time 27 Seconds (21-31)
--- NOTE | 2023-10-13 19:59 | Emergency Department Note ---
Impression & Plan Sepsis, UTI (urinary tract infection), Leukopenia ED Provider Note NAME: JEFF SAINZ AGE: 57 SEX: F : 1965 ARRIVES VIA: Walk-In INFORMANT: Patient ED PROVIDER(S): Michael Vivar DO CHIEF COMPLAINT: fever, abdominal pain and urinary symptoms HPI: Patient is a 57-year-old female who presents to the ER for fevers which have been present since this past Monday. She notes initially 2 weeks ago she started with dysuria urgency and frequency and improved until this past Monday when got severe. She now has bilateral lower abdominal pain and back pain. Denies any headache or change in vision. No chest pain or shortness of breath. No vomiting. No other exacerbating or remitting factors. ADDITIONAL HISTORY OBTAINED: Per HPI Chronic Medical/Social Conditions Affecting Care: Per HPI PAST MEDICAL HISTORY:See Below PAST SURGICAL HISTORY:See Below FAMILY HISTORY:See Below SOCIAL HISTORY:See Below HOME MEDICATIONS:See Below ALLERGIES:See Below VITALS:See Below PHYSICAL EXAMINATION: GENERAL: Sitting up in bed, alert, well appearing, well nourished, no distress, non-toxic EYE EXAM: normal conjunctiva. OROPHARYNX: no exudate, no erythema, lips, buccal mucosa, and tongue normal and mucous membranes are moist NECK: supple, no nuchal rigidity, no adenopathy, non-tender LUNGS: Clear to auscultation. Normal chest wall mechanics HEART: no murmurs, S1 normal and S2 normal ABDOMEN: abdomen soft, non-tender, normo-active bowel sounds, no masses, no rebound or guarding. BACK: Back is symmetrical on inspection and there is no deformity, no midline tenderness, no CVA tenderness. SKIN: no rashes and no bruising UPPER EXTREMITIES: upper extremities are grossly normal. LOWER EXTREMITIES: No pitting edema. NEURO EXAM: Normal sensorium, cranial nerves II-XII grossly intact, normal speech, no gross weakness of arms, no gross weakness of legs. MEDICAL DECISION MAKING: Patient is a 57-year-old female who presents ER for above-stated complaint. IV was established blood work was obtained. Labs show mild leukopenia at 2.5 thousand. No significant anemia. She was tachycardic. INR unremarkable. BMP along with LFTs and troponin were negative. Pro-Niko was unremarkable. UA was slightly contaminated with 6-10 epithelial cells. There was bacteria and 6-[address] cells[address] No leuks. CT abdomen pelvis due to the protracted wait from stat rad was significantly delayed consequently patient was admitted for further workup. Due to allergies patient was given Levaquin and Doxy as well as Tylenol. Patient was febrile and tachycardic and this resolved with the Tylenol and IV fluids. Discussed case with the hospitalist for further evaluation management treatment. Consults/Care Managements Discussions: Per [facility] Triage Nursing notes reviewed. Limited review of prior medical records performed Vital Signs: reviewed and remarkable for febrile and tachycardic Differential diagnosis: Differential diagnosis includes etiologies such as sepsis, UTI, pneumonia, metabolic, electrolyte abnormalities, cardiac sources, intracerebral event, toxicologic, neurological, as well as others were entertained. ER treatment provided: See below Diagnostics interpreted by me include EKG and cardiac monitoring as listed below: -Cardiac Monitoring: An order was placed for continuous cardiac monitoring. The monitor shows a rate of 110 with sinus rhythm. -ECG: Sinus tachycardia rate of 114 Normal axis No PVCs QTc 446 -Laboratory studies:Interpreted by me as stated above in MDM and shown below. Imaging studies: Xrays: As interpreted by me: Portable AP upright 1 view of the chest shows no focal infiltrate CTs show: CT abdomen pelvis was pending upon admission Procedures:none Critical Care: None Past Med/Surg History Problem List Leukopenia (Acute) UTI (urinary tract infection) (Acute) Sepsis (Acute) Pyelonephritis Chest pain (Acute) Pulmonary embolism (Chronic) Anticoagulation goal of INR 2 to 3 (Chronic) Sinus tachycardia (Chronic) Migraine (Chronic) Depression (Chronic) Status post partial hysterectomy (Chronic) History of cholecystectomy (Chronic) History of arthroscopic knee surgery (Chronic) Social History Smoking Status: Never smoker Preferred Language: Slovak Feels Safe at Home: Yes Allergies Allergies Allergy/AdvReac Type Severity Reaction Status Date / Time cephalexin Allergy Intermediate Rash Verified 10/13/23 21:55 Penicillins Allergy Intermediate Hives Verified 10/13/23 21:55 Sulfa (Sulfonamide Allergy Intermediate Hives Verified 10/13/23 21:55 Antibiotics) Home Meds Home Medications Medication Instructions Recorded Confirmed [id number] 250 1 tab PO Q6H PRN Migraine Headache 10/13/23 10/13/23 mg-250 mg-65 mg tablet (Excedrin Migraine) azelastine 137 mcg (0.1 %) nasal 1 spray intranasal AMHS 10/13/23 10/13/23 spray buspirone 15 mg tablet 15 mg PO AMPM 10/13/23 10/13/23 cyanocobalamin (vitamin B-12) 1,000 mcg sublingual DAILY 10/13/23 10/13/23 1,000 mcg sublingual tablet fenofibrate 160 mg tablet 160 mg PO QAM 10/13/23 10/13/23 fluoxetine 40 mg capsule 40 mg PO QAM 10/13/23 10/13/23 lamotrigine 150 mg tablet 150 mg PO AMHS 10/13/23 10/13/23 lorazepam 0.5 mg tablet 0.5 mg PO DAILY PRN Anxiety 10/13/23 10/13/23 prazosin 1 mg capsule 1 mg PO HS 10/13/23 10/13/23 prazosin 2 mg capsule 2 mg PO HS 10/13/23 10/13/23 prazosin 5 mg capsule 5 mg PO HS 10/13/23 10/13/23 rosuvastatin 5 mg tablet 5 mg PO QAM 10/13/23 10/13/23 trazodone 100 mg tablet 250 mg PO HS 10/13/23 10/13/23 valacyclovir 500 mg tablet 500 mg PO BID PRN Flare ups 10/13/23 10/13/23 Results & Data (ED) Vital Signs Vital Signs - 24 hr 10/13/23 17:53 10/13/23 20:21 10/13/23 20:22 Temperature 39.2 C H 37.7 C H Temperature Source Oral Oral Pulse Rate 123 H 85 Pulse Rate [Apical] 86 Pulse Rhythm [Apical] Regular Pulse Strength [Apical] Normal Respiratory Rate 20 18 Respiratory Effort / Characteristics Non-Labored Respiratory Depth Normal Respiratory Pattern Regular Blood Pressure 120/77 Blood Pressure [Left Arm] 129/78 Blood Pressure Mean 91 Blood Pressure Mean [Left Arm] 95 Blood Pressure Position [Left Arm] Sitting Pulse Oximetry 94 95 Oxygen Delivery Method Room Air Room Air Sepsis Recent Fever Within 48 Hours No Sepsis New/Unexplained Change in Mental Status N/A Sepsis Action Taken by Nursing No Action Required Laboratory Data 10/13/23 18:12 10/13/23 18:12 Lab Results 10/13/23 10/13/23 10/13/23 Range/Units 18:12 20:26 20:40 WBC 2.53 L (4.8-10.8) K/ul RBC 4.21 (4.20-5.40) M/uL Hgb 12.6 (12.0-16.0) g/dl Hct 37.7 (37.0-47.0) % MCV 89.5 (80.0-100.0) fL MCH 29.9 (25.0-34.0) pg MCHC 33.4 (32.0-36.0) g/dL RDW Std Deviation 41.7 (36.4-46.3) fL RDW Coeff of Abdulaziz 12.7 (11.5-14.5) % Plt Count 221 (130-400) K/uL MPV 9.8 (9.4-12.4) fL Immature Gran % (Auto) 0.4 % Neut % (Auto) 61.2 % Lymph % (Auto) 28.1 % [place] % (Auto) 9.5 % Eos % (Auto) 0.8 % Baso % (Auto) 0.0 % Neut # (Auto) 1.55 (1.40-6.50) K/uL Lymph # (Auto) 0.71 L (1.20-3.40) K/uL [place] # (Auto) 0.24 (0.11-0.59) K/uL Eos # (Auto) 0.02 (0.00-0.50) K/uL Baso # (Auto) 0.00 (0.00-0.20) K/uL Immature Gran # (Auto) 0.01 (0.01-0.20) K/uL PT 11.0 (9.0-12.0) Seconds INR 1.0 (0.9-1.1) APTT 27 (21-31) Seconds PTT Ratio 1.0 Sodium 138 (136-145) mmol/L Potassium 3.8 (3.5-5.1) mmol/L Chloride 104 (98-107) mmol/L Carbon Dioxide 23 (21-32) mmol/L Anion Gap 11 (3-11) BUN 15 (6-23) mg/dl Creatinine 0.97 (0.6-1.2) mg/dl Est Cr Clr Drug Dosing 63.2 ml/min Est GFR ( Amer) 74.1 ml/min Est GFR (Non-Af Amer) 63.9 ml/min BUN/Creatinine Ratio 15.5 (10-20) Glucose 105 H (70-99(Fasting)) mg/dl Lactate 1.5 (0.4-2.0) mmol/L Calcium 8.9 (8.6-10.3) mg/dl Magnesium 1.6 L (1.7-2.4) mg/dl Total Bilirubin 0.5 (0.2-1.0) mg/dl AST 42 H (13-39) U/L ALT 33 (7-52) U/L Alkaline Phosphatase 50 (34-104) U/L Troponin I High Sens 3.9 (0-14) pg/ml Total Protein 7.8 (6.0-8.3) gm/dl Albumin 4.3 (3.4-5.0) gm/dl Globulin 3.5 (2.5-4.0) gm/dl Albumin/Globulin Ratio 1.2 (0.9-2) Procalcitonin < 0.02 (0-0.5) ng/ml Urine Color Dark Yellow Urine Appearance Clear (Clear) Urine pH 5.5 (4.5-7.5) Ur Specific [place] > 1.045 H (1.000-1.030) Urine Protein Trace H (Negative) Urine Glucose (UA) Negative (Negative) Urine Ketones Trace H (Negative) Urine Blood 2+ H (Negative) Urine Nitrite Negative (Negative) Urine Bilirubin Negative (Negative) Urine Urobilinogen Positive H (Negative) Ur Leukocyte Esterase Negative (Negative) Urine WBC (Auto) 6-10 H (0-5) /hpf Urine RBC (Auto) >20 H (0-2) /hpf U Hyaline Cast (Auto) 0-2 (0-2) /lpf U Epithel Cells (Auto) 6-10 H (0-2) /hpf Urine Bacteria (Auto) 1+ H (None Seen) Lyme Disease Screen Negative (Negative) 10/13/23 Range/Units 21:10 WBC (4.8-10.8) K/ul RBC (4.20-5.40) M/uL Hgb (12.0-16.0) g/dl Hct (37.0-47.0) % MCV (80.0-100.0) fL MCH (25.0-34.0) pg MCHC (32.0-36.0) g/dL RDW Std Deviation (36.4-46.3) fL RDW Coeff of Abdulaziz (11.5-14.5) % Plt Count (130-400) K/uL MPV (9.4-12.4) fL Immature Gran % (Auto) % Neut % (Auto) % Lymph % (Auto) % [place] % (Auto) % Eos % (Auto) % Baso % (Auto) % Neut # (Auto) (1.40-6.50) K/uL Lymph # (Auto) (1.20-3.40) K/uL [place] # (Auto) (0.11-0.59) K/uL Eos # (Auto) (0.00-0.50) K/uL Baso # (Auto) (0.00-0.20) K/uL Immature Gran # (Auto) (0.01-0.20) K/uL PT (9.0-12.0) Seconds INR (0.9-1.1) APTT (21-31) Seconds PTT Ratio Sodium (136-145) mmol/L Potassium (3.5-5.1) mmol/L Chloride (98-107) mmol/L Carbon Dioxide (21-32) mmol/L Anion Gap (3-11) BUN (6-23) mg/dl Creatinine (0.6-1.2) mg/dl Est Cr Clr Drug Dosing ml/min Est GFR ( Amer) ml/min Est GFR (Non-Af Amer) ml/min BUN/Creatinine Ratio (10-20) Glucose (70-99(Fasting)) mg/dl Lactate 1.1 (0.4-2.0) mmol/L Calcium (8.6-10.3) mg/dl Magnesium (1.7-2.4) mg/dl Total Bilirubin (0.2-1.0) mg/dl AST (13-39) U/L ALT (7-52) U/L Alkaline Phosphatase (34-104) U/L Troponin I High Sens (0-14) pg/ml Total Protein (6.0-8.3) gm/dl Albumin (3.4-5.0) gm/dl Globulin (2.5-4.0) gm/dl Albumin/Globulin Ratio (0.9-2) Procalcitonin (0-0.5) ng/ml Urine Color Urine Appearance (Clear) Urine pH (4.5-7.5) Ur Specific [place] (1.000-1.030) Urine Protein (Negative) Urine Glucose (UA) (Negative) Urine Ketones (Negative) Urine Blood (Negative) Urine Nitrite (Negative) Urine Bilirubin (Negative) Urine Urobilinogen (Negative) Ur Leukocyte Esterase (Negative) Urine WBC (Auto) (0-5) /hpf Urine RBC (Auto) (0-2) /hpf U Hyaline Cast (Auto) (0-2) /lpf U Epithel Cells (Auto) (0-2) /hpf Urine Bacteria (Auto) (None Seen) Lyme Disease Screen (Negative) Administered Medications Discontinued Medications Acetaminophen (Acetaminophen 325 Mg Tab) 650 mg PO NOW STA Stop: 10/13/23 17:57 Last Admin: 10/13/23 18:15 Dose: 650 mg Documented By: KRISTIN Doxycycline Hyclate 100 mg/ (Dextrose) 100 mls @ 50 mls/hr IV NOW STA Stop: 10/13/23 21:51 Last Admin: 10/13/23 22:20 Dose: 50 mls/hr Documented By: NINI Levofloxacin/Dextrose (Levaquin/D5w) 750 mg in 150 mls @ 100 mls/hr IV NOW STA Stop: 10/13/23 21:21 Last Infusion: 10/13/23 22:20 Dose: Infused Documented By: Admin: 10/13/23 20:32 Dose: 100 mls/hr Documented By: DARLINE Sodium Chloride (Nss) 1,000 mls @ 999 mls/hr IV .Q1H1M GANESH Stop: 10/13/23 22:00 Last Admin: 10/13/23 22:04 Dose: 999 mls/hr Documented By: Infusion: 10/13/23 21:33 Dose: Infused Documented By: Admin: 10/13/23 20:32 Dose: 999 mls/hr Documented By: DARLINE Ioversol (Optiray 320 100ml) 94 ml IV ONCE ONE Stop: 10/13/23 20:07 Last Admin: 10/13/23 20:06 Dose: 94 ml Documented By: SOPHIA Imaging Data Radiologist's Impression: Chest X-Ray 10/13/23 17:56 XR chest 1V not portable CLINICAL HISTORY: Sepsis TECHNIQUE: Single frontal radiograph of the chest was obtained. Comparison: Comparison is made to chest radiograph 01/24/2017 FINDINGS: No lines and tubes are seen. The cardiomediastinal silhouette is normal. The lungs are clear. No evidence of pleural effusion or pneumothorax. IMPRESSION: No acute chest disease. ACT 112: Negative or not required by law. Electronically signed by: Lobo Mills M.D. 10/13/2023 6:52 PM Abdomen/Pelvis CT 10/13/23 19:55 Exam(s): CT ABDOMEN + PELVIS With Contrast IV Amt: 94 ml optiray 320 EXAM: CT Abdomen and Pelvis With Intravenous Contrast CLINICAL HISTORY: sepsis b/l abd pain going to back. TECHNIQUE: Axial computed tomography images of the abdomen and pelvis with intravenous contrast. CTDI is 25.03 mGy and DLP is 1228.91 mGy-cm. Automated exposure control was utilized for the study. A dose lowering technique was utilized adhering to the principles of ALARA. CONTRAST: Patient received 94 ml optiray 320 of IV contrast COMPARISON: CT abdomen and pelvis with contrast dated 09/01/2018 FINDINGS: Lung bases: Nonspecific curvilinear changes at the lung bases. No consolidation. ABDOMEN: Liver: Unremarkable. No mass. Gallbladder and bile ducts: Cholecystectomy. No ductal dilation. Pancreas: Unremarkable. No mass. No ductal dilation. Spleen: Unremarkable. No splenomegaly. Adrenals: Unremarkable. No mass. Kidneys and ureters: Kidneys demonstrate normal enhancement without pyelonephritis. Scattered subcentimeter presumed cortical cysts are too small to completely characterize. No obvious solid thing components. No hydronephrosis or obstructive nephrolithiasis. Stomach and bowel: Stomach is mildly distended with fluid and gas. No gastric mucosal thickening. No evidence for bowel obstruction. No definite asymmetric bowel mucosal abnormality. Minimal stool burden. Scattered diverticulosis without definitive diverticulitis. PELVIS: Appendix: A normal caliber appendix is noted extending along the posterior medial aspect of the cecum in the right lower quadrant. Bladder: Unremarkable. No mass. Reproductive: Unremarkable as visualized. ABDOMEN and PELVIS: Intraperitoneal space: Unremarkable. No free air. No significant fluid collection. Bones/joints: The thoracolumbar spine is intact without acute traumatic injury. No evidence for discitis/osteomyelitis. No dislocation. Soft tissues: Unremarkable. Vasculature: Unremarkable. No abdominal aortic aneurysm. Lymph nodes: Unremarkable. No enlarged lymph nodes. IMPRESSION: 1. The thoracolumbar spine is intact without acute traumatic injury. No evidence for discitis/osteomyelitis. No significant paraspinal soft tissue abnormality identified. 2. Nonspecific curvilinear changes at the lung bases. Favor subsegmental atelectasis. Subtle infection involving the left lower lobe is difficult to entirely exclude. Please correlate clinically. No pleural effusion. 3. No evidence for bowel obstruction. No definite asymmetric bowel mucosal abnormality. Minimal stool burden. Scattered diverticulosis without definitive diverticulitis. No free intraperitoneal fluid or pneumoperitoneum. Electronically signed by: Jed Nichols MD 10/13/23 23:33 PM Discharge Plan Visit Data Chief Complaint: Infection Stated Complaint: KIDNEY INFECTION, DR JACOB ED Provider: Michael Vivar Discharge Problem: Sepsis, UTI (urinary tract infection), Leukopenia Forms Stand Alone Forms: [facility] [place] [employer] Prescriptions Prescriptions: No Action fluoxetine 40 mg capsule 40 mg PO QAM Rx Instructions: This dose is per pt lamotrigine 150 mg tablet 150 mg PO AMHS prazosin 1 mg capsule 1 mg PO HS valacyclovir 500 mg tablet 500 mg PO BID PRN (Reason: Flare ups) prazosin 5 mg capsule 5 mg PO HS Rx Instructions: Take with a 2mg cap & a 1mg cap = 8 mg lorazepam 0.5 mg tablet 0.5 mg PO DAILY PRN (Reason: Anxiety) trazodone 100 mg tablet 250 mg PO HS cyanocobalamin (vitamin B-12) [Vitamin B-12] 1,000 mcg Tablet, Sublingual 1,000 mcg SUBLINGUAL DAILY azelastine 137 mcg (0.1 %) spray,non-aerosol 1 spray INTRANASAL AMHS Excedrin Migraine 250-250-65 mg Tablet 1 tab PO Q6H PRN (Reason: Migraine Headache) prazosin 2 mg capsule 2 mg PO HS buspirone 15 mg tablet 15 mg PO AMPM rosuvastatin 5 mg tablet 5 mg PO QAM fenofibrate 160 mg tablet 160 mg PO QAM Referrals Referrals: Yolande Aguilar DO [Primary Care Provider] - Discharge Problem: Sepsis Qualifiers: Sepsis type: sepsis due to unspecified organism Sepsis acute organ dysfunction status: unspecified Qualified Code(s): A41.9 - Sepsis, unspecified organism UTI (urinary tract infection) Qualifiers: Urinary tract infection type: acute cystitis Hematuria presence: with hematuria Qualified Code(s): N30.01 - Acute cystitis with hematuria Leukopenia Qualifiers: Leukopenia type: unspecified Qualified Code(s): D72.819 - Decreased white blood cell count, unspecified
[2023-10-13] MEDS: OPTIRAY 320 100ml IV ONE (20:06)
[2023-10-13] MEDS: levoFLOXacin/D5W 750 MG/150 ML BAG IV STA (20:32)
[2023-10-13] MEDS: SODIUM CHLORIDE 0.9% 1,000 ML IV SCH (20:32)
[2023-10-13 21:31] LABS: Appearance Urine Clear (Clear); Bacteria Urine Automated 1+ (None Seen); Bilirubin Urine Negative (Negative); Blood Urine 2+ (Negative); Cast Urine Automated 0-2 /lpf (0-2); Color Urine Dark Yellow; Glucose Urine UA Negative (Negative); Ketones Urine Trace (Negative); Leukocyte Esterase Urine Negative (Negative); Nitrite Urine Negative (Negative); Protein Urine Trace (Negative); RBC Urine Automated >20 /hpf (0-2); Specific Gravity Urine > 1.045 (1.000-1.030); Urobilinogen Urine Positive (Negative); pH Urine 5.5 (4.5-7.5)
[2023-10-13] MEDS: DOXYCYCLINE HYCLATE 100 MG in DEXTROSE 5% MINI-B 100 ML IV STA (22:20)
--- NOTE | 2023-10-13 23:14 | History & Physical Report ---
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 Patient said couple of weeks ago she had urinary symptoms but that got resolved. Then last several days she is having severe back pain and flank pain and developed fevers of 101 degrees for last few days which prompted her to come to the ER today. Denies any burning micturition currently. No hematuria. Normal bowel movements. No abdominal pain. No chest pain or shortness of breath. Has some headache. No blurred vision. No runny nose. No sore throat. No nausea. Hemodynamics okay. possible acute pyelonephritis UA positive ER gave Levaquin and Doxy will continue with Levaquin for now IV fluids will follow ct abd/pelvis follow cultures leukopenia Lyme screen negative will follow repeat labs depression generalized anxiety disorder PTSD continue home medications seizures Lamictal hyperlipidemia on statin and fenofibrate DVT prophylaxis Lovenox disposition medical floor full code. History of Present Illness Chief Complaint: Possible pyelonephritis Primary Care Provider: Yolande Aguilar, 57-year-old female with past medical history significant for hyperlipidemia, pancreatic cyst, chronic sinusitis, vasomotor rhinitis, diastolic dysfunction, diverticulosis of large intestine, partial symptomatic epilepsy with simple partial seizures, migraine, postconcussion syndrome, depression, GERD , Generalized anxiety disorder, history of pulmonary embolus, history of subarachnoid hemorrhage, PTSD presents with bilateral flank and back pain and fevers. Patient said couple of weeks ago she had urinary symptoms but that got resolved. Then last several days she is having severe back pain and flank pain and developed fevers of 101 degrees for last few days which prompted her to come to the ER today. Denies any burning micturition currently. No hematuria. Normal bowel movements. No abdominal pain. No chest pain or shortness of breath. Has some headache. No blurred vision. No runny nose. No sore throat. No nausea. Hemodynamics okay. past medical history. As mentioned above. Past surgical history. Colonoscopy. EGD. EGD with endoscopic ultrasound. Knee arthroscopy. Laparoscopic cholecystectomy. Bilateral cataracts. Vaginal hysterectomy. Social history. No smoking. No alcohol use. No drug use. Family history. Maternal grandmother had cancer. Diabetes. CHF. Mother had colon cancer. Heart disorder. Father had diabetes. of heart problems. Allergies Allergy/AdvReac Type Severity Reaction Status Date / Time cephalexin Allergy Intermediate Rash Verified 10/13/23 21:55 Penicillins Allergy Intermediate Hives Verified 10/13/23 21:55 Sulfa (Sulfonamide Allergy Intermediate Hives Verified 10/13/23 21:55 Antibiotics) Home Medications Medication Instructions Recorded Confirmed Type [id number] 250 1 tab PO Q6H PRN Migraine Headache 10/13/23 10/13/23 History mg-250 mg-65 mg tablet (Excedrin Migraine) azelastine 137 mcg (0.1 %) nasal 1 spray intranasal [facility] 10/13/23 10/13/23 History spray buspirone 15 mg tablet 15 mg PO AMPM 10/13/23 10/13/23 History cyanocobalamin (vitamin B-12) 1,000 mcg sublingual DAILY 10/13/23 10/13/23 History 1,000 mcg sublingual tablet fenofibrate 160 mg tablet 160 mg PO QAM 10/13/23 10/13/23 History fluoxetine 40 mg capsule 40 mg PO QAM 10/13/23 10/13/23 History lamotrigine 150 mg tablet 150 mg PO [facility] 10/13/23 10/13/23 History lorazepam 0.5 mg tablet 0.5 mg PO DAILY PRN Anxiety 10/13/23 10/13/23 History prazosin 1 mg capsule 1 mg PO HS 10/13/23 10/13/23 History prazosin 2 mg capsule 2 mg PO HS 10/13/23 10/13/23 History prazosin 5 mg capsule 5 mg PO HS 10/13/23 10/13/23 History rosuvastatin 5 mg tablet 5 mg PO QAM 10/13/23 10/13/23 History trazodone 100 mg tablet 250 mg PO HS 10/13/23 10/13/23 History valacyclovir 500 mg tablet 500 mg PO BID PRN Flare ups 10/13/23 10/13/23 History Past Med/Surg History Problem List Leukopenia (Acute) UTI (urinary tract infection) (Acute) Sepsis (Acute) Pyelonephritis Chest pain (Acute) Pulmonary embolism (Chronic) Anticoagulation goal of INR 2 to 3 (Chronic) Sinus tachycardia (Chronic) Migraine (Chronic) Depression (Chronic) Status post partial hysterectomy (Chronic) History of cholecystectomy (Chronic) History of arthroscopic knee surgery (Chronic) Social History Smoking Status: Never smoker Hx Alcohol Use: No Hx Substance Use: No Preferred Language: Cymraes Communication Ability: Effective Radiologic Electronic Specialist Required: No Beliefs That Will Affect Care: Latter-Day Latter-Day Beliefs: sabianism Current Living Situation: Alone Current Living Situation Comment: has home health -fridays Other Information That Helps Us Care for You: No Feels Safe at Home: Yes Safety Concerns: Feels Safe At This Time Assistive Devices: None Review of Systems Review of Systems: All systems reviewed & are unremarkable except as noted in HPI & below Physical Exam Physical Exam: General- Not in distress. Head- atraumatic Eyes- PERRL. ENT- oropharynx clear Neck- supple, no JVD. Lungs- clear to auscultation no wheezing or crackles. Heart- regular rate and rhythm; no murmur, no gallop. Abdomen- normal bowel sounds, soft, abdominal discomfort present no distension Extremities- no pretibial edema, no erythema seen Neuro- alert, oriented x 3; PERRL, EOMI; no facial palsy; no dysarthria; moves extremities Skin- warm & dry Results & Data Results & Data Vital Signs (Past 12 Hours) Vital Signs Temp Pulse Pulse Resp BP BP Pulse Ox 10/13/23 20:22 85 10/13/23 20:21 37.7 C H 86 18 129/78 95 10/13/23 17:53 39.2 C H 123 H 20 120/77 94 O2 Del Method 10/13/23 20:22 10/13/23 20:21 Room Air 10/13/23 17:53 Room Air Diagnostic Findings Laboratory Results WBC 2.53 K/ul (4.8-10.8) L 10/13/23 18:12 RBC 4.21 M/uL (4.20-5.40) 10/13/23 18:12 Hgb 12.6 g/dl (12.0-16.0) 10/13/23 18:12 Hct 37.7 % (37.0-47.0) 10/13/23 18:12 MCV 89.5 fL (80.0-100.0) 10/13/23 18:12 MCH 29.9 pg (25.0-34.0) 10/13/23 18:12 MCHC 33.4 g/dL (32.0-36.0) 10/13/23 18:12 RDW Std Deviation 41.7 fL (36.4-46.3) 10/13/23 18:12 RDW Coeff of Abdulaziz 12.7 % (11.5-14.5) 10/13/23 18:12 Plt Count 221 K/uL (130-400) 10/13/23 18:12 MPV 9.8 fL (9.4-12.4) 10/13/23 18:12 Immature Gran % (Auto) 0.4 % 10/13/23 18:12 Neut % (Auto) 61.2 % 10/13/23 18:12 Lymph % (Auto) 28.1 % 10/13/23 18:12 [place] % (Auto) 9.5 % 10/13/23 18:12 Eos % (Auto) 0.8 % 10/13/23 18:12 Baso % (Auto) 0.0 % 10/13/23 18:12 Neut # (Auto) 1.55 K/uL (1.40-6.50) 10/13/23 18:12 Lymph # (Auto) 0.71 K/uL (1.20-3.40) L 10/13/23 18:12 [place] # (Auto) 0.24 K/uL (0.11-0.59) 10/13/23 18:12 Eos # (Auto) 0.02 K/uL (0.00-0.50) 10/13/23 18:12 Baso # (Auto) 0.00 K/uL (0.00-0.20) 10/13/23 18:12 Immature Gran # (Auto) 0.01 K/uL (0.01-0.20) 10/13/23 18:12 PT 11.0 Seconds (9.0-12.0) 10/13/23 18:12 INR 1.0 (0.9-1.1) 10/13/23 18:12 APTT 27 Seconds (21-31) 10/13/23 18:12 PTT Ratio 1.0 10/13/23 18:12 Sodium 138 mmol/L (136-145) 10/13/23 18:12 Potassium 3.8 mmol/L (3.5-5.1) 10/13/23 18:12 Chloride 104 mmol/L (98-107) 10/13/23 18:12 Carbon Dioxide 23 mmol/L (21-32) 10/13/23 18:12 Anion Gap 11 (3-11) 10/13/23 18:12 BUN 15 mg/dl (6-23) 10/13/23 18:12 Creatinine 0.97 mg/dl (0.6-1.2) 10/13/23 18:12 Est Cr Clr Drug Dosing 63.2 ml/min 10/13/23 18:12 Est GFR ( Amer) 74.1 ml/min 10/13/23 18:12 Est GFR (Non-Af Amer) 63.9 ml/min 10/13/23 18:12 BUN/Creatinine Ratio 15.5 (10-20) 10/13/23 18:12 Glucose 105 mg/dl (70-99(Fasting)) H 10/13/23 18:12 Lactate 1.1 mmol/L (0.4-2.0) 10/13/23 21:10 Calcium 8.9 mg/dl (8.6-10.3) 10/13/23 18:12 Magnesium 1.6 mg/dl (1.7-2.4) L 10/13/23 18:12 Total Bilirubin 0.5 mg/dl (0.2-1.0) 10/13/23 18:12 AST 42 U/L (13-39) H 10/13/23 18:12 ALT 33 U/L (7-52) 10/13/23 18:12 Alkaline Phosphatase 50 U/L (34-104) 10/13/23 18:12 Troponin I High Sens 3.9 pg/ml (0-14) 10/13/23 18:12 Total Protein 7.8 gm/dl (6.0-8.3) 10/13/23 18:12 Albumin 4.3 gm/dl (3.4-5.0) 10/13/23 18:12 Globulin 3.5 gm/dl (2.5-4.0) 10/13/23 18:12 Albumin/Globulin Ratio 1.2 (0.9-2) 10/13/23 18:12 Procalcitonin < 0.02 ng/ml (0-0.5) 10/13/23 18:12 Urine Color Dark Yellow 10/13/23 20: Urine Appearance Clear (Clear) 10/13/23 20:26 Urine pH 5.5 (4.5-7.5) 10/13/23 20:26 Ur Specific [place] > 1.045 (1.000-1.030) H 10/13/23 20:26 Urine Protein Trace (Negative) H 10/13/23 20:26 Urine Glucose (UA) Negative (Negative) 10/13/23 20: Urine Ketones Trace (Negative) H 10/13/23 20:26 Urine Blood 2+ (Negative) H 10/13/23 20:26 Urine Nitrite Negative (Negative) 10/13/23 20:26 Urine Bilirubin Negative (Negative) 10/13/23 20:26 Urine Urobilinogen Positive (Negative) H 10/13/23 20:26 Ur Leukocyte Esterase Negative (Negative) 10/13/23 20:26 Urine WBC (Auto) 6-10 /hpf (0-5) H 10/13/23 20:26 Urine RBC (Auto) >20 /hpf (0-2) H 10/13/23 20:26 U Hyaline Cast (Auto) 0-2 /lpf (0-2) 10/13/23 20:26 U Epithel Cells (Auto) 6-10 /hpf (0-2) H 10/13/23 20:26 Urine Bacteria (Auto) 1+ (None Seen) H 10/13/23 20:26 Lyme Disease Screen Negative (Negative) 10/13/23 20:40 Impressions Chest X-Ray 10/13/23 17:56 XR chest 1V not portable CLINICAL HISTORY: Sepsis TECHNIQUE: Single frontal radiograph of the chest was obtained. Comparison: Comparison is made to chest radiograph 01/24/2017 FINDINGS: No lines and tubes are seen. The cardiomediastinal silhouette is normal. The lungs are clear. No evidence of pleural effusion or pneumothorax. IMPRESSION: No acute chest disease. ACT 112: Negative or not required by law. Electronically signed by: Lobo Mills M.D. 10/13/2023 6:52 PM ECG Additional Comments: ECG sinus tachycardia rate of 114. No acute ST changes seen. Code Status & VTE Plan VTE Prophylaxis Plan VTE Prophylaxis will be ordered: Yes
--- NOTE | 2023-10-13 23:35 | CT Scan Report ---
Exam(s): CT ABDOMEN + PELVIS With Contrast IV Amt: 94 ml optiray 320 EXAM: CT Abdomen and Pelvis With Intravenous Contrast CLINICAL HISTORY: sepsis b/l abd pain going to back. TECHNIQUE: Axial computed tomography images of the abdomen and pelvis with intravenous contrast. CTDI is 25.03 mGy and DLP is 1228.91 mGy-cm. Automated exposure control was utilized for the study. A dose lowering technique was utilized adhering to the principles of ALARA. CONTRAST: Patient received 94 ml optiray 320 of IV contrast COMPARISON: CT abdomen and pelvis with contrast dated 09/01/2018 FINDINGS: Lung bases: Nonspecific curvilinear changes at the lung bases. No consolidation. ABDOMEN: Liver: Unremarkable. No mass. Gallbladder and bile ducts: Cholecystectomy. No ductal dilation. Pancreas: Unremarkable. No mass. No ductal dilation. Spleen: Unremarkable. No splenomegaly. Adrenals: Unremarkable. No mass. Kidneys and ureters: Kidneys demonstrate normal enhancement without pyelonephritis. Scattered subcentimeter presumed cortical cysts are too small to completely characterize. No obvious solid thing components. No hydronephrosis or obstructive nephrolithiasis. Stomach and bowel: Stomach is mildly distended with fluid and gas. No gastric mucosal thickening. No evidence for bowel obstruction. No definite asymmetric bowel mucosal abnormality. Minimal stool burden. Scattered diverticulosis without definitive diverticulitis. PELVIS: Appendix: A normal caliber appendix is noted extending along the posterior medial aspect of the cecum in the right lower quadrant. Bladder: Unremarkable. No mass. Reproductive: Unremarkable as visualized. ABDOMEN and PELVIS: Intraperitoneal space: Unremarkable. No free air. No significant fluid collection. Bones/joints: The thoracolumbar spine is intact without acute traumatic injury. No evidence for discitis/osteomyelitis. No dislocation. Soft tissues: Unremarkable. Vasculature: Unremarkable. No abdominal aortic aneurysm. Lymph nodes: Unremarkable. No enlarged lymph nodes. IMPRESSION: 1. The thoracolumbar spine is intact without acute traumatic injury. No evidence for discitis/osteomyelitis. No significant paraspinal soft tissue abnormality identified. 2. Nonspecific curvilinear changes at the lung bases. Favor subsegmental atelectasis. Subtle infection involving the left lower lobe is difficult to entirely exclude. Please correlate clinically. No pleural effusion. 3. No evidence for bowel obstruction. No definite asymmetric bowel mucosal abnormality. Minimal stool burden. Scattered diverticulosis without definitive diverticulitis. No free intraperitoneal fluid or pneumoperitoneum. Electronically signed by: Jed Nichols MD 10/13/23 23:33 PM
[2023-10-14] MEDS ORDERED: POLYETHYLENE (MIRALAX) 17 GM PACK PO PRN (00:40)
[2023-10-14] MEDS ORDERED: valACYclovir HCL 500 MG TABLET PO PRN (00:40)
[2023-10-14] MEDS ORDERED: LORazepam 0.5 MG TAB PO PRN (00:40)
[2023-10-14] MEDS: SODIUM CHLORIDE 0.9% 1,000 ML IV SCH (01:38)
[2023-10-14] MEDS: busPIRone 15 MG TAB PO SCH (01:41)
[2023-10-14 07:24] LABS: Hemoglobin 10.6 g/dl (12.0-16.0); Mean Corpuscular Hemoglobin 29.9 pg (25.0-34.0); Mean Corpuscular Hgb Conc 33.1 g/dL (32.0-36.0); Mean Corpuscular Volume 90.1 fL (80.0-100.0); Mean Platelet Volume 9.8 fL (9.4-12.4); Platelet Count 176 K/uL (130-400); RDW Coefficient of Variation 12.9 % (11.5-14.5); RDW Standard Deviation 42.6 fL (36.4-46.3); Red Blood Count 3.55 M/uL (4.20-5.40)
[2023-10-14] MEDS: ACETAMINOPHEN 325 MG TAB PO PRN (07:46)
[2023-10-14 07:49] LABS: BUN Creatinine Ratio 15.3 (10-20); Calcium 7.7 mg/dl (8.6-10.3); Creatinine Clr Calc Pharmacy 84.4 ml/min; Est GFR (African American) 106.2 ml/min; Est GFR (Non-African American) 91.7 ml/min; Magnesium 1.5 mg/dl (1.7-2.4); Potassium 3.7 mmol/L (3.5-5.1)
[2023-10-14 09:08] LABS: ANC (manual) 0.94 K/uL (1.4-6.5); Eosinophils # (manual) 0.02 K/uL (0-0.50); Eosinophils % (manual) 1 %; Lymphocytes # (manual) 0.98 K/uL (1.2-3.4); Lymphocytes % (manual) 49 %; Monocytes # (manual) 0.04 K/uL (0.11-0.59); Monocytes % (manual) 2 %; Neutrophils # (manual) 0.94 K/uL (1.40-6.50); Neutrophils % (manual) 47 %; Plasma Cells # (manual) 0.02 K/uL (0-0); Plasma Cells % (manual) 1 %; RBC Morphology Unremarkable
[2023-10-14] MEDS: [UNRECOGNIZED DRUG - OTHER] SCH (09:09)
[2023-10-14] MEDS: AZELASTINE HCL 0.1% NASAL 200 SPRAYS/27,400 MCG BTL SCH (09:10)
[2023-10-14] MEDS: CYANOCOBALAMIN (B-12) 500 MCG TABLET PO SCH (09:12)
[2023-10-14] MEDS: ENOXAPARIN INJ 40 MG/0.4 ML SYR SQ SCH (09:12)
[2023-10-14] MEDS: FLUoxetine HCL 20 MG CAP PO SCH (09:13)
[2023-10-14] MEDS: lamoTRIgine 25 MG TAB PO SCH (09:13)
[2023-10-14] MEDS: lamoTRIgine 100 MG TAB PO SCH (09:13)
[2023-10-14] MEDS: ROSUVASTATIN CALCIUM 5 MG TAB PO SCH (09:14)
[2023-10-14] MEDS: HYDROmorphone INJ 0.5 MG/0.5 ML SYR IV STA (09:18)
[2023-10-14] MEDS: HYDROmorphone INJ 0.5 MG/0.5 ML SYR IV PRN (16:02)
--- NOTE | 2023-10-14 16:03 | Hospitalist Progress Note ---
Date of Service October 14, 2023 Assessment & Plan (1) Pyelonephritis: Plan: Ms Padilla is a 57-year-old female with past medical history significant for hyperlipidemia, pancreatic cyst, chronic sinusitis, vasomotor rhinitis, diastolic dysfunction, diverticulosis of large intestine, partial symptomatic epilepsy with simple partial seizures, migraine, postconcussion syndrome, depression, GERD , Generalized anxiety disorder, history of pulmonary embolus, history of subarachnoid hemorrhage, PTSD presents with bilateral flank and back pain and fevers with concern for complicated UTI. Imaging negative for pyelonephritis. Continued on levaquin with symptomatic improvment. #Acute complicated cystitis CT abp negative for pyelonephritis Continue levaquin Pending UA cultures with GNB Blood cultures NGTD #Bicyotpenia anemia and leukopenia, ?iso of infection Mild neutorpenia noted, not immunocompromised Lyme negative Repeat CBC w/ diff and peripheral smear/anemia labs in am #depression generalized anxiety disorder PTSD continue home medications # seizures Lamictal # hyperlipidemia on statin and fenofibrate DVT prophylaxis Lovenox disposition medical floor full code. Admission and Anticipated Discharge Date Admission Date: October 13, 2023 Subjective NAEO Reports marginal improvement since admission, still with some flank discomfort Physical Exam Constitutional: WD/WN, vitals as above Respiratory: normal respiratory effort, lungs clear to auscultation Cardiovascular: RRR, no murmur, no edema Gastrointestinal (Abdomen): suprapubic TTP Results & Data Results & Data Vital Signs (Past 12 Hours) Vital Signs Temp Pulse Resp BP Pulse Ox O2 Del Method 10/14/23 14:31 37.1 C 85 16 105/68 92 Room Air 10/14/23 07:53 Room Air 10/14/23 07:08 38.2 C H 94 H 17 113/72 92 Room Air Laboratory Results Short CBC 10/13/23 10/14/23 Range/Units 18:12 06:25 WBC 2.53 L 2.00 L (4.8-10.8) K/ul Hgb 12.6 10.6 L (12.0-16.0) g/dl Hct 37.7 32.0 L (37.0-47.0) % Plt Count 221 176 (130-400) K/uL BMP 10/13/23 10/14/23 18:12 06:25 Sodium 138 140 Potassium 3.8 3.7 Chloride 104 110 H Carbon Dioxide 23 23 BUN 15 11 Creatinine 0.97 0.72 Glucose 105 H 90 Calcium 8.9 7.7 L Liver Function 10/13/23 Range/Units 18:12 Total Bilirubin 0.5 (0.2-1.0) mg/dl AST 42 H (13-39) U/L ALT 33 (7-52) U/L Alkaline Phosphatase 50 (34-104) U/L Albumin 4.3 (3.4-5.0) gm/dl Urine 10/13/23 Range/Units 20:26 Urine Color Dark Yellow Urine Appearance Clear (Clear) Urine pH 5.5 (4.5-7.5) Ur Specific [place] > 1.045 H (1.000-1.030) Urine Protein Trace H (Negative) Urine Glucose (UA) Negative (Negative) Medications Administered Home Medications Medication Instructions Recorded Confirmed Last Taken znforfy-roarwlojgfwyw-lgvprrxu 250 1 tab PO Q6H PRN Migraine Headache 10/13/23 10/13/23 Unknown mg-250 mg-65 mg tablet (Excedrin Migraine) azelastine 137 mcg (0.1 %) nasal 1 spray intranasal [facility] 10/13/23 10/13/23 Unknown spray buspirone 15 mg tablet 15 mg PO [facility] 10/13/23 10/13/23 Unknown cyanocobalamin (vitamin B-12) 1,000 mcg sublingual DAILY 10/13/23 10/13/23 Unknown 1,000 mcg sublingual tablet fenofibrate 160 mg tablet 160 mg PO [facility] 10/13/23 10/13/23 Unknown fluoxetine 40 mg capsule 40 mg PO [facility] 10/13/23 10/13/23 Unknown lamotrigine 150 mg tablet 150 mg PO [facility] 10/13/23 10/13/23 Unknown lorazepam 0.5 mg tablet 0.5 mg PO DAILY PRN Anxiety 10/13/23 10/13/23 Unknown prazosin 1 mg capsule 1 mg PO 10/13/23 10/13/23 Unknown prazosin 2 mg capsule 2 mg PO 10/13/23 10/13/23 Unknown prazosin 5 mg capsule 5 mg PO 10/13/23 10/13/23 Unknown rosuvastatin 5 mg tablet 5 mg PO [facility] 10/13/23 10/13/23 Unknown trazodone 100 mg tablet 250 mg PO 10/13/23 10/13/23 Unknown valacyclovir 500 mg tablet 500 mg PO BID PRN Flare ups 10/13/23 10/13/23 Unknown Active Medications Generic Name Dose Route Start Last Admin Trade Name Case PRN Reason Stop Dose Admin Acetaminophen 650 mg 10/14/23 00:40 10/14/23 07:46 Acetaminophen 325 Mg Tab PO 11/13/23 00:39 650 mg Q4H PRN Administration pain/fever Azelastine HCl 1 sprays 10/14/23 09:00 10/14/23 09:10 Azelastine Hcl 0.1% Nasal 200 Sprays/27,400 Mcg Btl NA 11/13/23 08:59 1 sprays BID GANESH Administration Buspirone HCl 15 mg 10/14/23 00:40 10/14/23 10:56 Buspirone 15 Mg Tab PO 11/13/23 00:39 15 mg BID GANESH Administration Cyanocobalamin 1,000 mcg 10/14/23 09:00 10/14/23 09:12 Cyanocobalamin (B-12) 500 Mcg Tablet PO 11/13/23 08:59 1,000 mcg DAILY AGNESH Administration Enoxaparin Sodium 40 mg 10/14/23 09:00 10/14/23 09:12 Enoxaparin Inj 40 Mg/0.4 Ml Syr SQ 11/13/23 08:59 Not Given Q24H GANESH Fluoxetine HCl 40 mg 10/14/23 09:00 10/14/23 09:13 Fluoxetine Hcl 20 Mg Cap PO 11/13/23 08:59 40 mg QAM GANESH Administration Sodium Chloride 1,000 mls @ 100 mls/hr 10/14/23 00:40 10/14/23 10:56 Nss IV 10/14/23 20:39 100 mls/hr .Q10H GANESH Administration Lamotrigine 100 mg 10/14/23 09:00 10/14/23 09:13 Lamotrigine 100 Mg Tab PO 11/13/23 08:59 100 mg BID GANESH Administration Lamotrigine 50 mg 10/14/23 09:00 10/14/23 09:13 Lamotrigine 25 Mg Tab PO 11/13/23 08:59 50 mg BID GANESH Administration Miscellaneous 1 each 10/14/23 08:00 10/14/23 09:09 Excedrin Migraine - Order Awaiting Action N/A 11/13/23 07:59 Not Given QS GANESH Miscellaneous 1 each 10/14/23 08:00 10/14/23 09:09 Fenofibrate 160 Mg - Order Awaiting Action N/A 11/13/23 07:59 Not Given QS GANESH Rosuvastatin Calcium 5 mg 10/14/23 09:00 10/14/23 09:14 Rosuvastatin Calcium 5 Mg Tab PO 11/13/23 08:59 5 mg QAM GANESH Administration
[2023-10-14 16:35] LABS: Eosinophils # (auto) 0.02 K/uL (0.00-0.50); Eosinophils % (auto) 0.9 %; Hematocrit (blood only) 31.9 % (37.0-47.0); Hemoglobin 10.4 g/dl (12.0-16.0); Lymphocytes # (auto) 0.89 K/uL (1.20-3.40); Lymphocytes % (auto) 39.9 %; Mean Corpuscular Hemoglobin 29.8 pg (25.0-34.0); Mean Corpuscular Hgb Conc 32.6 g/dL (32.0-36.0); Mean Corpuscular Volume 91.4 fL (80.0-100.0); Mean Platelet Volume 9.8 fL (9.4-12.4); Monocytes # (auto) 0.26 K/uL (0.11-0.59); Monocytes % (auto) 11.7 %; Neutrophils # (auto) 1.06 K/uL (1.40-6.50); Neutrophils % (auto) 47.5 %; Platelet Count 172 K/uL (130-400); RDW Coefficient of Variation 13.1 % (11.5-14.5); RDW Standard Deviation 43.2 fL (36.4-46.3); Red Blood Count 3.49 M/uL (4.20-5.40); White Blood Count 2.23 K/ul (4.8-10.8)
[2023-10-14] MEDS: levoFLOXacin/D5W 500 MG/100 ML BAG IV SCH (20:13)
[2023-10-14] MEDS: PRAZOSIN HCL 1 MG CAP PO SCH (20:18)
[2023-10-14] MEDS ORDERED: PRAZOSIN HCL 1 MG CAP PO SCH ×2 (21:00)
[2023-10-14] MEDS: PROMETHAZINE HCL 12.5 MG in SODIUM CHLORIDE 0.9% 50 ML IV PRN (21:26)
[2023-10-14] MEDS: traZODone HCL 100 MG TAB PO SCH (21:55)
[2023-10-14] MEDS: BUTALBITAL/ACETAMIN/CAFFEINE TAB PO PRN (21:55)
[2023-10-15 06:32] LABS: Eosinophils # (auto) 0.01 K/uL (0.00-0.50); Eosinophils % (auto) 0.4 %; Hematocrit (blood only) 30.9 % (37.0-47.0); Hemoglobin 9.9 g/dl (12.0-16.0); Immature Granulocytes # (auto) 0.01 K/uL (0.01-0.20); Immature Granulocytes % (auto) 0.4 %; Lymphocytes # (auto) 1.09 K/uL (1.20-3.40); Lymphocytes % (auto) 45.2 %; Mean Corpuscular Hemoglobin 29.4 pg (25.0-34.0); Mean Corpuscular Volume 91.7 fL (80.0-100.0); Mean Platelet Volume 9.6 fL (9.4-12.4); Monocytes # (auto) 0.21 K/uL (0.11-0.59); Monocytes % (auto) 8.7 %; Neutrophils # (auto) 1.09 K/uL (1.40-6.50); Neutrophils % (auto) 45.3 %; Platelet Count 179 K/uL (130-400); RDW Coefficient of Variation 13.3 % (11.5-14.5); RDW Standard Deviation 44.9 fL (36.4-46.3); Red Blood Count 3.37 M/uL (4.20-5.40); White Blood Count 2.41 K/ul (4.8-10.8)
[2023-10-15 06:42] LABS: Albumin Globulin Ratio 1.4 (0.9-2); Albumin Level 3.4 gm/dl (3.4-5.0); BUN Creatinine Ratio 11.8 (10-20); Bilirubin,Total 0.3 mg/dl (0.2-1.0); Calcium 8.3 mg/dl (8.6-10.3); Creatinine Clr Calc Pharmacy 71.5 ml/min; Est GFR (African American) 86.9 ml/min; Globulin 2.5 gm/dl (2.5-4.0); Magnesium 1.7 mg/dl (1.7-2.4); Phosphorus 2.4 mg/dl (2.5-4.9); Potassium 3.8 mmol/L (3.5-5.1); Total Protein 5.9 gm/dl (6.0-8.3)
[2023-10-15] MEDS ORDERED: SODIUM PHOSPHATE 3 MMOL/1 ML INFUSION IV STA (06:56)
--- NOTE | 2023-10-15 06:57 | Hospitalist Progress Note ---
Date of Service October 15, 2023 Assessment & Plan (1) Pyelonephritis: Plan: Ms Padilla is a 57-year-old female with past medical history significant for hyperlipidemia, pancreatic cyst, chronic sinusitis, vasomotor rhinitis, diastolic dysfunction, diverticulosis of large intestine, partial symptomatic epilepsy with simple partial seizures, migraine, postconcussion syndrome, depression, GERD , Generalized anxiety disorder, history of pulmonary embolus, history of subarachnoid hemorrhage, PTSD presents with bilateral flank and back pain and fevers with concern for complicated UTI. Imaging negative for pyelonephritis. Initially continued on levaquin with symptomatic improvement. However, as of 10/14 patient with increased lower quandrant pains, not consistent with UTI--discomfort is reported similar to prior episodes of diverticulitis. Patient reports worse with eating/postprandial pain LFTS normal; TTP in RLQ/LLQ, no leukocytosis, febrile #Abdominal pain, c/f diverticulitis #History of diverticulitis #Large colon diverticulosis Plan to adjust antibiotics to cover GI -If improvement will defer further imaging -Start Cipro and Flagyl -CLD for now -If worsening, will repeat CT Abd/P and consider GI v Gen surg consult contingent on results/clinical course. #Acute complicated cystitis CT abp negative for pyelonephritis abx as above Pending UA cultures with GNB Blood cultures NGTD #Bicyotpenia #Iron deficiency anemia anemia and leukopenia, ?iso of infection Mild neutropenia noted, not immunocompromised--neutropenia resolved Lyme negative Repeat CBC w/ diff and peripheral smear/anemia labs in am Start iron supplement If not improving with IV abx, low threshold for heme consult contingent on clinical course #depression generalized anxiety disorder PTSD continue home medications # seizures Lamictal # hyperlipidemia on statin and fenofibrate DVT prophylaxis Lovenox disposition medical floor full code. Admission and Anticipated Discharge Date Admission Date: October 13, 2023 Subjective Still febrile with pain in BL quadrants Reports history of diverticulitis and notes that pain is not dissimilar States pain is worse with eating--reports prior cholecystectomy (confirmed on imaging from admission) Reports bowel movement yesterday Physical Exam Constitutional: WD/WN, vitals as above (mild discomfort noted with positional adjustment ) Respiratory: normal respiratory effort, lungs clear to auscultation Cardiovascular: RRR, no murmur, no edema Gastrointestinal (Abdomen): tenderness to deep palpation in RLQ > LLQ Results & Data Results & Data Vital Signs (Past 12 Hours) Vital Signs Temp Pulse Resp BP Pulse Ox O2 Del Method 10/14/23 20:15 Room Air 10/14/23 20:05 37.3 C 82 18 105/72 96 Room Air Laboratory Results Short CBC 10/14/23 10/15/23 Range/Units 16:19 05:42 WBC 2.23 L 2.41 L (4.8-10.8) K/ul Hgb 10.4 L 9.9 L (12.0-16.0) g/dl Hct 31.9 L 30.9 L (37.0-47.0) % Plt Count 172 179 (130-400) K/uL BMP 10/15/23 05:42 Sodium 143 Potassium 3.8 Chloride 113 H Carbon Dioxide 25 BUN 10 Creatinine 0.85 Glucose 89 Calcium 8.3 L Liver Function 10/15/23 Range/Units 05:42 Total Bilirubin 0.3 (0.2-1.0) mg/dl AST 21 (13-39) U/L ALT 18 (7-52) U/L Alkaline Phosphatase 37 (34-104) U/L Albumin 3.4 (3.4-5.0) gm/dl Diagnostic Findings Reviewed the imaging from CT from admission once more: again no pyelo noted, " Scattered diverticulosis without definitive diverticulitis. " Medications Administered Home Medications Medication Instructions Recorded Confirmed Last Taken umgadsj-nxnvxphyrglgz-elaalrly 250 1 tab PO Q6H PRN Migraine Headache 10/13/23 10/13/23 Unknown mg-250 mg-65 mg tablet (Excedrin Migraine) azelastine 137 mcg (0.1 %) nasal 1 spray intranasal [facility] 10/13/23 10/13/23 Unknown spray buspirone 15 mg tablet 15 mg PO AMPM 10/13/23 10/13/23 Unknown cyanocobalamin (vitamin B-12) 1,000 mcg sublingual DAILY 10/13/23 10/13/23 Unknown 1,000 mcg sublingual tablet fenofibrate 160 mg tablet 160 mg PO QAM 10/13/23 10/13/23 Unknown fluoxetine 40 mg capsule 40 mg PO QAM 10/13/23 10/13/23 Unknown lamotrigine 150 mg tablet 150 mg PO [facility] 10/13/23 10/13/23 Unknown lorazepam 0.5 mg tablet 0.5 mg PO DAILY PRN Anxiety 10/13/23 10/13/23 Unknown prazosin 1 mg capsule 1 mg PO HS 10/13/23 10/13/23 Unknown prazosin 2 mg capsule 2 mg PO HS 10/13/23 10/13/23 Unknown prazosin 5 mg capsule 5 mg PO HS 10/13/23 10/13/23 Unknown rosuvastatin 5 mg tablet 5 mg PO QAM 10/13/23 10/13/23 Unknown trazodone 100 mg tablet 250 mg PO HS 10/13/23 10/13/23 Unknown valacyclovir 500 mg tablet 500 mg PO BID PRN Flare ups 10/13/23 10/13/23 Unknown Active Medications Generic Name Dose Route Start Last Admin Trade Name Huberq PRN Reason Stop Dose Admin Acetaminophen 650 mg 10/14/23 00:40 10/14/23 16:02 Acetaminophen 325 Mg Tab PO 11/13/23 00:39 650 mg Q4H PRN Administration pain/fever Acetaminophen/Butalbital/Caffeine 1 tab 10/14/23 21:01 10/14/23 21:55 Butalbital/Acetamin/Caffeine Tab PO 11/13/23 21:00 1 tab Q6H PRN Administration Headache Azelastine HCl 1 sprays 10/14/23 09:00 10/14/23 20:16 Azelastine Hcl 0.1% Nasal 200 Sprays/27,400 Mcg Btl NA 11/13/23 08:59 1 sprays BID GANESH Administration Buspirone HCl 15 mg 10/14/23 00:40 10/14/23 20:17 Buspirone 15 Mg Tab PO 11/13/23 00:39 15 mg BID GANESH Administration Cyanocobalamin 1,000 mcg 10/14/23 09:00 10/14/23 09:12 Cyanocobalamin (B-12) 500 Mcg Tablet PO 11/13/23 08:59 1,000 mcg DAILY GANESH Administration Enoxaparin Sodium 40 mg 10/14/23 09:00 10/14/23 09:12 Enoxaparin Inj 40 Mg/0.4 Ml Syr SQ 11/13/23 08:59 Not Given Q24H GNAESH Fluoxetine HCl 40 mg 10/14/23 09:00 10/14/23 09:13 Fluoxetine Hcl 20 Mg Cap PO 11/13/23 08:59 40 mg QAM GANESH Administration Hydromorphone HCl 0.5 mg 10/14/23 09:04 10/14/23 16:02 Hydromorphone Inj 0.5 Mg/0.5 Ml Syr IV 10/28/23 09:03 0.5 mg Q6H PRN Administration Pain Promethazine HCl 12.5 mg/ 50.5 mls @ 202 mls/hr 10/14/23 21:01 10/14/23 21:43 Sodium Chloride IV 11/13/23 21:00 Infused Q6H PRN Infusion Nausea And Vomiting Sodium Phosphate 21 mmol/ 507 mls @ 145 mls/hr 10/15/23 07:00 10/15/23 08:16 Sodium Chloride IV 10/15/23 10:29 145 mls/hr ONE ONE Administration Lamotrigine 100 mg 10/14/23 09:00 10/14/23 20:17 Lamotrigine 100 Mg Tab PO 11/13/23 08:59 100 mg BID GANESH Administration Lamotrigine 50 mg 10/14/23 09:00 10/14/23 20:17 Lamotrigine 25 Mg Tab PO 11/13/23 08:59 50 mg BID GANESH Administration Miscellaneous 1 each 10/14/23 08:00 10/15/23 00:06 Excedrin Migraine - Order Awaiting Action N/A 11/13/23 07:59 Not Given QS GANESH Miscellaneous 1 each 10/14/23 08:00 10/15/23 00:06 Fenofibrate 160 Mg - Order Awaiting Action N/A 11/13/23 07:59 Not Given QS GANESH Prazosin HCl 8 mg 10/14/23 21:00 10/14/23 20:18 Prazosin Hcl 1 Mg Cap PO 11/13/23 20:59 8 mg HS GANESH Administration Rosuvastatin Calcium 5 mg 10/14/23 09:00 10/14/23 09:14 Rosuvastatin Calcium 5 Mg Tab PO 11/13/23 08:59 5 mg QAM GANESH Administration Trazodone HCl 250 mg 10/14/23 21:00 10/14/23 21:55 Trazodone Hcl 100 Mg Tab PO 11/13/23 20:59 250 mg HS GANESH Administration
[2023-10-15 07:00] LABS: Ferritin 135.9 ng/ml (8-388)
[2023-10-15 07:08] LABS: Folate (Folic Acid),Ser orPlas 14.95 ng/ml (>5.38)
[2023-10-15 07:20] LABS: Prothrombin Time 11.2 Seconds (9.0-12.0)
[2023-10-15] MEDS: SODIUM PHOSPHATE 21 MMOL in SODIUM CHLORIDE 0.9% 500 ML IV ONE (08:16)
[2023-10-15] MEDS: metroNIDAZOLE 500 MG/100 ML BAG IV SCH (08:50)
[2023-10-15] MEDS: FERROUS SULFATE 325 MG TAB PO SCH (09:49)
[2023-10-15] MEDS: SODIUM CHLORIDE 0.9% 1,000 ML IV SCH (09:49)
[2023-10-15] MEDS: CIPROFLOXACIN / D5W 400 MG/200 ML BAG IV SCH (09:50)
[2023-10-15] MEDS: OPTIRAY 320 100ml IV ONE (14:46)
--- NOTE | 2023-10-15 15:20 | CT Scan Report ---
ABDOMEN AND PELVIS CT WITH IV CONTRAST CT DOSE: 1372.04 mGy.cm HISTORY: worsening abdominal pain TECHNIQUE: Multiaxial CT images of the abdomen and pelvis were performed following the use of intrave nous contrast. A dose lowering technique was utilized adhering to the principles of ALARA. COMPARISON STUDY: Abdomen and pelvis CT 10/13/2023. FINDINGS: Patchy densities within the lower lobes posteriorly have slightly progressed. This could re present atelectasis or a pneumonia. This is most pronounced on the left. No pneumoperitoneum. No pneu matosis. No acute fractures identified. Prior cholecystectomy. Mild central intrahepatic bile duct di latation which is slightly progressed. This could be due to the patient's postcholecystectomy state. However, recommend correlation with LFTs. There is normal caliber common bile duct. No hepatic or spl enic masses. The adrenal glands unremarkable. A few subcentimeter hypodense bilateral renal lesions a re again noted. These are to be too small to characterize but statistically represent cysts. No hydro nephrosis. The main portal vein is patent. There is an 11 mm hypodense lesion within the pancreatic t ail, unchanged. 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 Normal calib er abdominal aorta. No retroperitoneal or pelvic lymphadenopathy. Bladder wall thickening which may b e due to underdistention. Prior hysterectomy. Colonic diverticulosis. No evidence for acute diverticu litis. No bowel wall thickening or obstruction. Normal appendix. IMPRESSION: 1. No bowel wall thickening or obstruction. 2. Normal appendix. 3. Bladder wall thickening which may be due to underdistention. Recommend correlation with urinalysis to exclude a cystitis. 4. Patchy airspace opacities within the lower lobes posteriorly have progressed. This could represent atelectasis or a pneumonia. 5. Mild intrahepatic bile duct dilatation. This is likely due to the patient's post cholecystectomy s laresn. However, recommend correlation with LFTs. ACT 112: Negative or not required by law. Electronically signed by: Casey Betancourt M.D. 10/15/2023 3:18 PM
[2023-10-15] MEDS: AZTREONAM 2,000 MG in DEXTROSE 5% MINI-B 100 ML IV SCH (16:26)
[2023-10-16 06:15] LABS: Hematocrit (blood only) 28.9 % (37.0-47.0); Hemoglobin 9.2 g/dl (12.0-16.0); Mean Corpuscular Hemoglobin 29.5 pg (25.0-34.0); Mean Corpuscular Hgb Conc 31.8 g/dL (32.0-36.0); Mean Corpuscular Volume 92.6 fL (80.0-100.0); Mean Platelet Volume 9.8 fL (9.4-12.4); Platelet Count 166 K/uL (130-400); RDW Coefficient of Variation 13.7 % (11.5-14.5); RDW Standard Deviation 46.8 fL (36.4-46.3); Red Blood Count 3.12 M/uL (4.20-5.40); White Blood Count 1.82 K/ul (4.8-10.8)
[2023-10-16 06:30] LABS: Albumin Globulin Ratio 1.5 (0.9-2); Albumin Level 3.2 gm/dl (3.4-5.0); BUN Creatinine Ratio 7.6 (10-20); Bilirubin,Total 0.2 mg/dl (0.2-1.0); Calcium 7.6 mg/dl (8.6-10.3); Creatinine Clr Calc Pharmacy 76.9 ml/min; Est GFR (Non-African American) 81.9 ml/min; Globulin 2.2 gm/dl (2.5-4.0); Magnesium 1.6 mg/dl (1.7-2.4); Phosphorus 2.5 mg/dl (2.5-4.9); Potassium 3.2 mmol/L (3.5-5.1); Total Protein 5.4 gm/dl (6.0-8.3)
[2023-10-16] MEDS: POTASSIUM CHLORIDE CRTAB 20 MEQ TABCR PO STA (08:14)
[2023-10-16] MEDS: MAGNESIUM SULFATE / D5W 1 GM/100 ML BAG IV SCH (09:33)
--- NOTE | 2023-10-16 09:50 | Hospitalist Progress Note ---
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 Imaging negative for pyelonephritis. Initially continued on Levaquin with symptomatic improvement. However, as of 10/14, patient with increased lower abdominal quadrant pains not consistent with UTI -- discomfort is reportedly similar to prior episodes of diverticulitis. Patient reports worse with eating/postprandial pain. Abdominal Pain, C/F Diverticulitis History of Diverticulitis, Large Colon Diverticulosis Pt c/o RLQ abdominal pain today. LFTs and lipase both WNL, pt afebrile overnight. Repeat CTAP yesterday (10/14) showing the following: i. No bowel wall thickening or obstruction. ii. Normal appendix, bladder wall thickening. Pt previously on ciprofloxacin and levofloxacin. ABX regimen adjusted to cover potential GI source. Pt now on day 2 of aztreonam and Flagyl, will continue. Continue clear liquid diet for now 2/2 ongoing nausea. If pain continues to worsen further, could consider another repeat CTAP. GI consult placed for further evaluation, appreciate their input/recommendations. CTAP also showing b/l atelectasis, continue w/ incentive spirometry. Acute Complicated Cystitis Admitting UA positive for infection. CTAP x 2 negative for pyelonephritis. ABX regimen outlined as above, will continue. Final urine culture growing E. coli (10/12). Preliminary blood cultures w/ NGTD x 48hrs - will follow. Bicytopenia Iron Deficiency Anemia Anemia and leukopenia - ? ISO of infection Lyme testing negative. Pt not immunocompromised, however neutropenia not improving. WBC 2.41 yesterday (10/14) --> 1.82 today (10/15). Pt was started on an iron supplement yesterday. Hgb and Hct both downtrending today. Peripheral smear was performed, results as below: "The peripheral smear is remarkable for a normocytic anemia and leukopenia. Iron studies show low iron which is at least a contributing factor for the anemia. A slight rouleaux is present, which can be seen in reactive conditions; however, if concern for an underlying issue is present then SPEP is recommended to exclude a plasma cell neoplasm. No evidence of myelodysplasia is seen." Serum protein electrophoresis ordered for AM. Heme/Onc consulted for further guidance, appreciate their recommendations. Hypokalemia Hypomagnesemia K+ 3.2 this morning, repleted w/ 40mEq of oral KCl. Will continue to monitor K+ & replete PRN. Mag 1.6 this morning, repleted w/ IV mag x 2 bags. Will continue to monitor mag & replete PRN. Depression, ALEJO & PTSD: Can continue home medications. 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 Hyperlipidemia: Can continue statin therapy and fenofibrate. DVT Prophylaxis: SQ Lovenox Code Status: FULL CODE PCP: Yolande Aguilar DO Disposition: Admitted in Med/Surg Patient seen in collaboration with Dr. Bah. Please see addendum. I spent a total of 45 minutes coordinating, documenting, and providing care for this patient excluding time spent in the performance of separately billed services. This included personally reviewing all current laboratories and imaging studies, medical reconciliation, outpatient chart review and discussion with specialists. This chart was completed in part utilizing Speech Voice Recognition Software. Grammatical errors, random word insertions, pronoun errors, and incomplete sentences are an occasional consequence of this system due to software limitations, ambient noise, and hardware issues. Any formal questions or co ncerns about the content, text, or information contained within the body of this dictation should be directly addressed to the provider for clarification. Admission and Anticipated Discharge Date Admission Date: October 13, 2023 Supervising Physician Co-Signing Physician Notes I have seen and discussed the case with the collaborating advanced practitioner. I agree with the above PN I have reviewed and confirmed the patients medical history, the findings on physical examination, and the patients diagnosis and treatment plan with Manish YUEN and agree with the information documented. Patient evaluated at bedside. Still with RLQ pain. Labs still with leukopenia/neutropenia CT x 2 normal. Discussed with Gen surg--low suspicion for appendicitis or other surgical concern Exam with TTP RLQ #Abdominal pain #Persistent nausea normal ct, pain not congruent with imaging/infection/etc LFTS and lipase WNL, BM 10/14 GI consult #Bicytopenia Unclear etiology Iron deficiency noted Smear with roushabnamaux Heme consult #Fevers #Acute cystis continuing on aztreonam and flagyl at this time I spent a total of 35 minutes coordinating, documenting, and providing care for this patient excluding time spent in the performance of separately billed services. All of the aforementioned completed outside of collaborating with the assigned advanced practitioner for a full treatment plan. I have reviewed the advanced practitioner's documentation, and I agree with, and take responsibility for the plan of care Subjective Patient seen and examined at bedside in room W352-1. Patient reports ongoing pain in her lower abdominal region. Mentions pain is now more localized to her lower right quadrant. She is having some difficulty swallowing her pills. Patient mentions feeling quite nauseous when trying to swallow them this morning. She denies any episodes of vomiting, but has been dry heaving after taking her pills. Patient was afebrile overnight and denies any chills/body aches this morning. Review of Systems Review of Systems: At least ten systems reviewed and negative, except as noted in the HPI. Physical Exam Physical Exam: General: NAD, sitting up in bed, conversing appropriately. A+Ox3, euthymic affect. HEENT: Normocephalic, atraumatic. Conjunctivae normal, anicteric sclerae. Oropharynx normal. Respiratory: Normal respiratory effort, lungs clear to auscultation, no wheeze, rales, rhonchi. No accessory muscle use. Cardiovascular: Regular rate, rhythm, no murmur, normal peripheral pulses, no BLE edema. Vessels: No JVD. Abdomen/GI: Normal bowel sounds, soft, tenderness to deep palpation in RLQ, no hepatosplenomegaly. Extremities/Musculoskeletal: No cyanosis or clubbing, extremities motor strength intact, moves all extremities. Neurologic: PERRL, EOMI, accommodation nl, no face palsy, no dysarthria. Skin: No rashes, normal color, warm/dry. Results & Data Results & Data Vital Signs (Past 12 Hours) Vital Signs Temp Pulse Resp BP Pulse Ox O2 Del Method 10/16/23 07:32 37.0 C 64 16 100/67 92 Room Air Laboratory Results Short CBC 10/16/23 Range/Units 05:48 WBC 1.82 L (4.8-10.8) K/ul Hgb 9.2 L (12.0-16.0) g/dl Hct 28.9 L (37.0-47.0) % Plt Count 166 (130-400) K/uL BMP 10/16/23 05:48 Sodium 144 Potassium 3.2 L Chloride 116 H Carbon Dioxide 23 BUN 6 Creatinine 0.79 Glucose 90 Calcium 7.6 L Liver Function 10/16/23 Range/Units 05:48 Total Bilirubin 0.2 (0.2-1.0) mg/dl AST 17 (13-39) U/L ALT 14 (7-52) U/L Alkaline Phosphatase 37 (34-104) U/L Albumin 3.2 L (3.4-5.0) gm/dl Diagnostic Findings Chest X-Ray 10/13/23 17:56 XR chest 1V not portable CLINICAL HISTORY: Sepsis TECHNIQUE: Single frontal radiograph of the chest was obtained. Comparison: Comparison is made to chest radiograph 01/24/2017 FINDINGS: No lines and tubes are seen. The cardiomediastinal silhouette is normal. The lungs are clear. No evidence of pleural effusion or pneumothorax. IMPRESSION: No acute chest disease. ACT 112: Negative or not required by law. Electronically signed by: Lobo Mills M.D. 10/13/2023 6:52 PM Abdomen/Pelvis CT 10/13/23 19:55 Exam(s): CT ABDOMEN + PELVIS With Contrast IV Amt: 94 ml optiray 320 EXAM: CT Abdomen and Pelvis With Intravenous Contrast CLINICAL HISTORY: sepsis b/l abd pain going to back. TECHNIQUE: Axial computed tomography images of the abdomen and pelvis with intravenous contrast. CTDI is 25.03 mGy and DLP is 1228.91 mGy-cm. Automated exposure control was utilized for the study. A dose lowering technique was utilized adhering to the principles of ALARA. CONTRAST: Patient received 94 ml optiray 320 of IV contrast COMPARISON: CT abdomen and pelvis with contrast dated 09/01/2018 FINDINGS: Lung bases: Nonspecific curvilinear changes at the lung bases. No consolidation. ABDOMEN: Liver: Unremarkable. No mass. Gallbladder and bile ducts: Cholecystectomy. No ductal dilation. Pancreas: Unremarkable. No mass. No ductal dilation. Spleen: Unremarkable. No splenomegaly. Adrenals: Unremarkable. No mass. Kidneys and ureters: Kidneys demonstrate normal enhancement without pyelonephritis. Scattered subcentimeter presumed cortical cysts are too small to completely characterize. No obvious solid thing components. No hydronephrosis or obstructive nephrolithiasis. Stomach and bowel: Stomach is mildly distended with fluid and gas. No gastric mucosal thickening. No evidence for bowel obstruction. No definite asymmetric bowel mucosal abnormality. Minimal stool burden. Scattered diverticulosis without definitive diverticulitis. PELVIS: Appendix: A normal caliber appendix is noted extending along the posterior medial aspect of the cecum in the right lower quadrant. Bladder: Unremarkable. No mass. Reproductive: Unremarkable as visualized. ABDOMEN and PELVIS: Intraperitoneal space: Unremarkable. No free air. No significant fluid collection. Bones/joints: The thoracolumbar spine is intact without acute traumatic injury. No evidence for discitis/osteomyelitis. No dislocation. Soft tissues: Unremarkable. Vasculature: Unremarkable. No abdominal aortic aneurysm. Lymph nodes: Unremarkable. No enlarged lymph nodes. IMPRESSION: 1. The thoracolumbar spine is intact without acute traumatic injury. No evidence for discitis/osteomyelitis. No significant paraspinal soft tissue abnormality identified. 2. Nonspecific curvilinear changes at the lung bases. Favor subsegmental atelectasis. Subtle infection involving the left lower lobe is difficult to entirely exclude. Please correlate clinically. No pleural effusion. 3. No evidence for bowel obstruction. No definite asymmetric bowel mucosal abnormality. Minimal stool burden. Scattered diverticulosis without definitive diverticulitis. No free intraperitoneal fluid or pneumoperitoneum. Electronically signed by: Jed Nichols MD 10/13/23 23:33 PM Abdomen/Pelvis CT 10/15/23 14:[address] WITH IV CONTRAST CT DOSE: 1372.04 mGy.cm HISTORY: worsening abdominal pain TECHNIQUE: Multiaxial CT images of the abdomen and pelvis were performed following the use of intravenous contrast. A dose lowering technique was utilized adhering to the principles of ALARA. COMPARISON STUDY: Abdomen and pelvis CT 10/13/2023. FINDINGS: Patchy densities within the lower lobes posteriorly have slightly progressed. This could represent atelectasis or a pneumonia. This is most pronounced on the left. No pneumoperitoneum. No pneumatosis. No acute fractures identified. Prior cholecystectomy. Mild central intrahepatic bile duct dilatation which is slightly progressed. This could be due to the patient's postcholecystectomy state. However, recommend correlation with LFTs. There is normal caliber common bile duct. No hepatic or splenic masses. The adrenal glands unremarkable. A few subcentimeter hypodense bilateral renal lesions are again noted. These are to be too small to characterize but statistically represent cysts. No hydronephrosis. The main portal vein is patent. There is an 11 mm hypodense lesion within the pancreatic tail, unchanged. 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 Normal caliber abdominal aorta. No retroperitoneal or pelvic lymphadenopathy. Bladder wall thickening which may be due to underdistention. Prior hysterectomy. Colonic diverticulosis. No evidence for acute diverticulitis. No bowel wall thickening or obstruction. Normal appendix. IMPRESSION: 1. No bowel wall thickening or obstruction. 2. Normal appendix. 3. Bladder wall thickening which may be due to underdistention. Recommend correlation with urinalysis to exclude a cystitis. 4. Patchy airspace opacities within the lower lobes posteriorly have progressed. This could represent atelectasis or a pneumonia. 5. Mild intrahepatic bile duct dilatation. This is likely due to the patient's post cholecystectomy state. However, recommend correlation with LFTs. ACT 112: Negative or not required by law. Electronically signed by: Casey Betancourt M.D. 10/15/2023 3:18 PM Medications Administered Acetaminophen (Acetaminophen 325 Mg Tab) 650 mg PO Q4H PRN PRN Reason: pain/fever Stop: 11/13/23 00:39 Last Admin: 10/15/23 20:00 Dose: 650 mg Documented By: Admin: 10/14/23 16:02 Dose: 650 mg Documented By: Admin: 10/14/23 07:46 Dose: 650 mg Documented By: SHANIQUE Acetaminophen/Butalbital/Caffeine (Butalbital/Acetamin/Caffeine Tab) 1 tab PO Q6H PRN PRN Reason: Headache Stop: 11/13/23 21:00 Last Admin: 10/15/23 17:37 Dose: 1 tab Documented By: Admin: 10/14/23 21:55 Dose: 1 tab Documented By: JULIA Azelastine HCl (Azelastine Hcl 0.1% Nasal 200 Sprays/27,400 Mcg Btl) 1 sprays NA BID GANESH Stop: 11/13/23 08:59 Last Admin: 10/16/23 08:26 Dose: 1 sprays Documented By: Admin: 10/15/23 20:02 Dose: 1 sprays Documented By: Admin: 10/15/23 08:30 Dose: 1 sprays Documented By: Admin: 10/14/23 20:16 Dose: 1 sprays Documented By: Admin: 10/14/23 09:10 Dose: 1 sprays Documented By: SHANIQUE Buspirone HCl (Buspirone 15 Mg Tab) 15 mg PO BID GANESH Stop: 11/13/23 00:39 Last Admin: 10/16/23 08:14 Dose: 15 mg Documented By: Admin: 10/15/23 20:01 Dose: 15 mg Documented By: Admin: 10/15/23 08:32 Dose: 15 mg Documented By: Admin: 10/14/23 20:17 Dose: 15 mg Documented By: Admin: 10/14/23 10:56 Dose: 15 mg Documented By: Admin: 10/14/23 01:41 Dose: 15 mg Documented By: BRAXTON Cyanocobalamin (Cyanocobalamin (B-12) 500 Mcg Tablet) 1,000 mcg PO DAILY GANESH Stop: 11/13/23 08:59 Last Admin: 10/16/23 08:15 Dose: 1,000 mcg Documented By: Admin: 10/15/23 08:32 Dose: 1,000 mcg Documented By: Admin: 10/14/23 09:12 Dose: 1,000 mcg Documented By: SHANIQUE Enoxaparin Sodium (Enoxaparin Inj 40 Mg/0.4 Ml Syr) 40 mg SQ Q24H GANESH Stop: 11/13/23 08:59 Last Admin: 10/16/23 08:26 Dose: 40 mg Documented By: Admin: 10/15/23 08:32 Dose: Not Given Documented By: Admin: 10/14/23 09:12 Dose: Not Given Documented By: SHANIQUE Ferrous Sulfate (Ferrous Sulfate 325 Mg Tab) 325 mg PO QAM GANESH Stop: 11/14/23 08:59 Last Admin: 10/16/23 08:14 Dose: 325 mg Documented By: Admin: 10/15/23 09:49 Dose: 325 mg Documented By: SHANIQUE Fluoxetine HCl (Fluoxetine Hcl 20 Mg Cap) 40 mg PO QAM GANESH Stop: 11/13/23 08:59 Last Admin: 10/16/23 08:14 Dose: 40 mg Documented By: Admin: 10/15/23 09:49 Dose: 40 mg Documented By: Admin: 10/14/23 09:13 Dose: 40 mg Documented By: SHANIQUE Hydromorphone HCl (Hydromorphone Inj 0.5 Mg/0.5 Ml Syr) 0.5 mg IV Q6H PRN PRN Reason: Pain Stop: 10/28/23 09:03 Last Admin: 10/16/23 08:46 Dose: 0.5 mg Documented By: Admin: 10/15/23 20:43 Dose: 0.5 mg Documented By: Admin: 10/15/23 14:30 Dose: 0.5 mg Documented By: Admin: 10/15/23 08:26 Dose: 0.5 mg Documented By: Admin: 10/14/23 16:02 Dose: 0.5 mg Documented By: SHANIQUE Promethazine HCl 12.5 mg/ (Sodium Chloride) 50.5 mls @ 202 mls/hr IV Q6H PRN PRN Reason: Nausea And Vomiting Stop: 11/13/23 21:00 Last Infusion: 10/14/23 21:43 Dose: Infused Documented By: Admin: 10/14/23 21:26 Dose: 202 mls/hr Documented By: JULIA Metronidazole (Flagyl) 500 mg in 100 mls @ 100 mls/hr IV Q8H GANESH; Protocol Stop: 10/25/23 08:29 Last Infusion: 10/16/23 00:46 Dose: Infused Documented By: Admin: 10/15/23 23:35 Dose: 100 mls/hr Documented By: Infusion: 10/15/23 17:39 Dose: Infused Documented By: Admin: 10/15/23 16:39 Dose: 100 mls/hr Documented By: Infusion: 10/15/23 09:50 Dose: Infused Documented By: Admin: 10/15/23 08:50 Dose: 100 mls/hr Documented By: SHANIQUE Aztreonam 2,000 mg/ Dextrose 100 mls @ 100 mls/hr IV Q8H GANESH Stop: 10/25/23 15:59 Last Infusion: 10/16/23 00:46 Dose: Infused Documented By: Admin: 10/15/23 23:35 Dose: 100 mls/hr Documented By: Infusion: 10/15/23 17:26 Dose: Infused Documented By: Admin: 10/15/23 16:26 Dose: 100 mls/hr Documented By: SHANIQUE Magnesium Sulfate/Dextrose (Magnesium Sulfate / D5w) 1 gm in 100 mls @ 50 mls/hr IV Q2H GANESH Stop: 10/16/23 11:29 Last Admin: 10/16/23 09:33 Dose: 50 mls/hr Documented By: ESTRELLA Lamotrigine (Lamotrigine 100 Mg Tab) 100 mg PO BID GANESH Stop: 11/13/23 08:59 Last Admin: 10/16/23 08:14 Dose: 100 mg Documented By: Admin: 10/15/23 20:01 Dose: 100 mg Documented By: Admin: 10/15/23 08:31 Dose: 100 mg Documented By: Admin: 10/14/23 20:17 Dose: 100 mg Documented By: Admin: 10/14/23 09:13 Dose: 100 mg Documented By: SHANIQUE Lamotrigine (Lamotrigine 25 Mg Tab) 50 mg PO BID GANESH Stop: 11/13/23 08:59 Last Admin: 10/16/23 08:14 Dose: 50 mg Documented By: Admin: 10/15/23 20:02 Dose: 50 mg Documented By: Admin: 10/15/23 08:31 Dose: 50 mg Documented By: Admin: 10/14/23 20:17 Dose: 50 mg Documented By: Admin: 10/14/23 09:13 Dose: 50 mg Documented By: SHANIQUE Prazosin HCl (Prazosin Hcl 1 Mg Cap) 8 mg PO HS GANESH Stop: 11/13/23 20:59 Last Admin: 10/15/23 20:00 Dose: 8 mg Documented By: Admin: 10/14/23 20:18 Dose: 8 mg Documented By: JULIA Rosuvastatin Calcium (Rosuvastatin Calcium 5 Mg Tab) 5 mg PO QAM GANESH Stop: 11/13/23 08:59 Last Admin: 10/16/23 08:14 Dose: 5 mg Documented By: Admin: 10/15/23 08:33 Dose: 5 mg Documented By: Admin: 10/14/23 09:14 Dose: 5 mg Documented By: SHANIQUE Trazodone HCl (Trazodone Hcl 100 Mg Tab) 250 mg PO HS GANESH Stop: 11/13/23 20:59 Last Admin: 10/15/23 21:53 Dose: 250 mg Documented By: Admin: 10/14/23 21:55 Dose: 250 mg Documented By: JULIA Discontinued Medications Acetaminophen (Acetaminophen 325 Mg Tab) 650 mg PO NOW STA Stop: 10/13/23 17:57 Last Admin: 10/13/23 18:15 Dose: 650 mg Documented By: KRISTIN Hydromorphone HCl (Hydromorphone Inj 0.5 Mg/0.5 Ml Syr) 0.5 mg IV NOW STA Stop: 10/14/23 09:05 Last Admin: 10/14/23 09:18 Dose: 0.5 mg Documented By: SHAINQUE Doxycycline Hyclate 100 mg/ (Dextrose) 100 mls @ 50 mls/hr IV NOW STA Stop: 10/13/23 21:51 Last Infusion: 10/14/23 00:41 Dose: Infused Documented By: Admin: 10/13/23 22:20 Dose: 50 mls/hr Documented By: NINI Levofloxacin/Dextrose (Levaquin/D5w) 750 mg in 150 mls @ 100 mls/hr IV NOW STA Stop: 10/13/23 21:21 Last Infusion: 10/13/23 22:20 Dose: Infused Documented By: Admin: 10/13/23 20:32 Dose: 100 mls/hr Documented By: DARLINE Sodium Chloride (Nss) 1,000 mls @ 999 mls/hr IV .Q1H1M GANESH Stop: 10/13/23 22:00 Last Infusion: 10/14/23 00:12 Dose: Infused Documented By: Admin: 10/13/23 22:04 Dose: 999 mls/hr Documented By: Infusion: 10/13/23 21:33 Dose: Infused Documented By: Admin: 10/13/23 20:32 Dose: 999 mls/hr Documented By: DARLINE Sodium Chloride (Nss) 1,000 mls @ 100 mls/hr IV .Q10H GANESH Stop: 10/14/23 20:39 Last Infusion: 10/14/23 21:00 Dose: Infused Documented By: Admin: 10/14/23 10:56 Dose: 100 mls/hr Documented By: Infusion: 10/14/23 10:56 Dose: Infused Documented By: Admin: 10/14/23 01:38 Dose: 100 mls/hr Documented By: BRAXTON Levofloxacin/Dextrose (Levaquin/D5w) 500 mg in 100 mls @ 100 mls/hr IV Q24H GANESH; Protocol Stop: 10/24/23 20:59 Last Infusion: 10/14/23 21:16 Dose: Infused Documented By: Admin: 10/14/23 20:13 Dose: 100 mls/hr Documented By: JULIA Sodium Phosphate 21 mmol/ (Sodium Chloride) 507 mls @ 145 mls/hr IV ONE ONE Stop: 10/15/23 10:29 Last Infusion: 10/15/23 11:46 Dose: Infused Documented By: Admin: 10/15/23 08:16 Dose: 145 mls/hr Documented By: SHANIQUE Ciprofloxacin (Cipro / D5w) 400 mg in 200 mls @ 100 mls/hr IV Q12H GANESH; Protocol Stop: 10/25/23 08:29 Last Infusion: 10/15/23 11:50 Dose: Infused Documented By: Admin: 10/15/23 09:50 Dose: 100 mls/hr Documented By: SHANIQUE Sodium Chloride (Nss) 1,000 mls @ 125 mls/hr IV .Q8H GANESH Stop: 11/14/23 08:29 Last Admin: 10/16/23 05:16 Dose: 125 mls/hr Documented By: Infusion: 10/16/23 05:16 Dose: Infused Documented By: Admin: 10/15/23 21:16 Dose: 125 mls/hr Documented By: Infusion: 10/15/23 17:49 Dose: Infused Documented By: Admin: 10/15/23 09:49 Dose: 125 mls/hr Documented By: SHANIQUE Ioversol (Optiray 320 100ml) 94 ml IV ONCE ONE Stop: 10/13/23 20:07 Last Admin: 10/13/23 20:06 Dose: 94 ml Documented By: SOPHIA Ioversol (Optiray 320 100ml) 94 ml IV ONCE ONE Stop: 10/15/23 14:46 Last Admin: 10/15/23 14:46 Dose: 94 ml Documented By: NEAL Miscellaneous (Excedrin Migraine - Order Awaiting Action) 1 each N/A QS GANESH Stop: 11/13/23 07:59 Last Admin: 10/15/23 17:00 Dose: Not Given Documented By: Admin: 10/15/23 08:26 Dose: Not Given Documented By: ADMich Admin: 10/15/23 00:06 Dose: Not Given Documented By: Admin: 10/14/23 16:03 Dose: Not Given Documented By: [place] Admin: 10/14/23 09:09 Dose: Not Given Documented By: SHANIQUE Mcadamscellaneous (Fenofibrate 160 Mg - Order Awaiting Action) 1 each N/A QS GANESH Stop: 11/13/23 07:59 Last Admin: 10/15/23 17:00 Dose: Not Given Documented By: [place] Admin: 10/15/23 08:26 Dose: Not Given Documented By: [place] Admin: 10/15/23 00:06 Dose: Not Given Documented By: Admin: 10/14/23 16:03 Dose: Not Given Documented By: [place] Admin: 10/14/23 09:09 Dose: Not Given Documented By: SHANIQUE Potassium Chloride (Potassium Chloride Crtab 20 Meq Tabcr) 40 meq PO NOW STA Stop: 10/16/23 07:22 Last Admin: 10/16/23 08:14 Dose: 40 meq Documented By: ESTRELLA
--- NOTE | 2023-10-16 10:59 | Electrocardiogram Report ---
Test Reason : Blood Pressure : / mmHG Vent. Rate : 114 BPM Atrial Rate : 114 BPM P-R Int : 170 ms QRS Dur : 066 ms QT Int : 324 ms P-R-T Axes : 044 -04 036 degrees QTc Int : 446 ms Sinus tachycardia Cannot rule out Anterior infarct , age undetermined Abnormal ECG When compared with ECG of 24-JAN-2017 22:14, Vent. rate has increased BY 58 BPM Confirmed by Wilber Mast ([id number]) on 10/16/2023 10:59:19 AM Referred By: Kalpana Arriaga Confirmed By:Wilber Mast
--- NOTE | 2023-10-16 14:16 | Gastrointestinal Consultation ---
Date of Consultation October 16, 2023 Assessment & Plan (1) RLQ abdominal pain: -Trial of Levsin q 4-6 hr prn abdominal pain -Obtain mesenteric doppler to exclude acute concerns -Not a candidate for endoscopic evaluation given her acute hematologic concerns, however fortunately patient did have an unremarkable colonoscopy in 2021 at [facility]. Supervising Physician Co-Signing Physician Notes I saw the patient and examine her. I agree completely with the note by [employer] and the documentation. briefly, 57 yo female admitted with a complicated cystitis. She has positive urine cultures for E. coli. She is currently on IV Aztreonam and due to persistent RLQ pain she is on Cipro & Flagyl. She is pending a hematology consult for neutropenia/leukopenia. GI has been consulted for evaluation of RLQ abdominal pain. The patient notes this has been intermittent & ongoing. She has had 2 CT scans of the abdomen (without po contrast) that were unremarkable for GI abnormalities. She notes nausea and decreased appetite. On exam no peritoneal signs. Does report some pain after eating. Suggest Mesenteric doppler to ischemic colitis given pain with foods and pain being out of proportion to exam or imaging findings. Levsin sl as suspect functional pain. we will follow. History of Present Illness Reason for Consultation: RLQ pain Attending Physician: Emerald Bah MD History of Present Illness Patient is a 57 yo female admitted with a complicated cystitis. She has positive urine cultures for E. coli. She is currently on IV Aztreonam and due to persistent RLQ pain she is on Cipro & Flagyl. She is pending a hematology consult for neutropenia/leukopenia. GI has been consulted for evaluation of RLQ abdominal pain. The patient notes this has been intermittent & ongoing. She has had 2 CT scans of the abdomen (without po contrast) that were unremarkable for GI abnormalities. She notes nausea and decreased appetite. She denies triggers for her symptoms. She denies diarrhea or constipation. Bowels move every 1-2 days and this is her baseline. She had a colonoscopy with [facility] in 2021 that showed diverticulosis. She denies rectal bleeding. LFTs unremarkable. WBC count 1,820. Platelets in normal limits. Allergies Allergy/AdvReac Type Severity Reaction Status Date / Time cephalexin Allergy Intermediate Rash Verified 10/13/23 21:55 Penicillins Allergy Intermediate Hives Verified 10/13/23 21:55 Sulfa (Sulfonamide Allergy Intermediate Hives Verified 10/13/23 21:55 Antibiotics) Home Medications Medication Instructions Recorded Confirmed Type [id number]-[id number]-[id number] 250 1 tab PO Q6H PRN Migraine Headache 10/13/23 10/13/23 History mg-250 mg-65 mg tablet (Excedrin Migraine) azelastine 137 mcg (0.1 %) nasal 1 spray intranasal AMHS 10/13/23 10/13/23 History spray buspirone 15 mg tablet 15 mg PO AMPM 10/13/23 10/13/23 History cyanocobalamin (vitamin B-12) 1,000 mcg sublingual DAILY 10/13/23 10/13/23 History 1,000 mcg sublingual tablet fenofibrate 160 mg tablet 160 mg PO QAM 10/13/23 10/13/23 History fluoxetine 40 mg capsule 40 mg PO QAM 10/13/23 10/13/23 History lamotrigine 150 mg tablet 150 mg PO AMHS 10/13/23 10/13/23 History lorazepam 0.5 mg tablet 0.5 mg PO DAILY PRN Anxiety 10/13/23 10/13/23 History prazosin 1 mg capsule 1 mg PO HS 10/13/23 10/13/23 History prazosin 2 mg capsule 2 mg PO HS 10/13/23 10/13/23 History prazosin 5 mg capsule 5 mg PO HS 10/13/23 10/13/23 History rosuvastatin 5 mg tablet 5 mg PO QAM 10/13/23 10/13/23 History trazodone 100 mg tablet 250 mg PO HS 10/13/23 10/13/23 History valacyclovir 500 mg tablet 500 mg PO BID PRN Flare ups 10/13/23 10/13/23 History Patient History Social History Smoking Status: Never smoker Hx Alcohol Use: No Hx Substance Use: No Preferred Language: Bengali Communication Ability: Effective Pig Farmer Required: No Beliefs That Will Affect Care: Muslim Muslim Beliefs: holiness Current Living Situation: Alone Current Living Situation Comment: has home health -fridays Other Information That Helps Us Care for You: No Feels Safe at Home: Yes Safety Concerns: Feels Safe At This Time Assistive Devices: None Review of Systems Constitutional: no fever and no chills Cardiovascular: no chest pain Gastrointestinal: + abdominal pain and + nausea; no early satiety, no heartburn, no vomiting, no coffee ground emesis, no change in bowel habits, no d iarrhea/loose stools, no blood in stools and no problem reported Psychiatric: no problem reported Hematologic / Lymphatic: no unexplained weight loss Physical Exam Constitutional: WD/WN, vitals as above Respiratory: normal respiratory effort Cardiovascular: Rate/Rhythm: regular rate Gastrointestinal (Abdomen): normal bowel sounds, soft, nontender, no he patosplenomegaly Psychiatric: Orientation: alert and oriented x 3 Results & Data Vital Signs (Past 12 Hours) Vital Signs Temp Pulse Resp BP Pulse Ox O2 Del Method 10/16/23 11:30 36.4 C L 70 16 92/64 L 92 Room Air 10/16/23 07:32 37.0 C 64 16 100/67 92 Room Air PG Care Time/CCT Total # of Minutes Spent Total Time Spent with Patient: Total time spent is greater than 50% in coordination of care (as documented) at patient's floor/unit and/or counseling patient: [place] [address] IN/OBS CONSULT LVL 4,60M Patient Type New History Detailed Exam Detailed Medical Decision Making Moderate Complexity Diagnoses RLQ abdominal pain R10.31
--- NOTE | 2023-10-16 19:22 | Oncology Consultation ---
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 My recommendation would be to perform a bone marrow biopsy at this point to rule out underlying marrow dysfunction and a bone marrow failure syndrome or plasma cell neoplasm. The process of the bone marrow biopsy was discussed with the patient and the patient agreed. Transfuse if the hemoglobin is less than 7 continue antibiotics Plan hematology will continue to follow the patient make appropriate recommendations. History of Present Illness Reason for Consultation: Bicytopenia Neutropenia Anemia Attending Physician: Emerald Bah MD History of Present Illness The patient is a very pleasant 57-year-old woman with a past history of hyperlipidemia, sinusitis, rhinitis, diastolic dysfunction, diverticulosis of large intestine who came to the hospital after having bilateral flank pain, back pain and fever. She had a lot of urinary symptoms. her admitting UA was positive for infection. CT of the chest abdomen pelvis is negative for pyelonephritis. She continues to have persistent neutropenia. Lyme's disease testing was negative. Basic hematological workup has been done including iron studies which showed low iron. There has been a slight rouleaux in her blood. Hematology has been consulted to assist in management of this patient with bicytopenia. Allergies Allergy/AdvReac Type Severity Reaction Status Date / Time cephalexin Allergy Intermediate Rash Verified 10/13/23 21:55 Penicillins Allergy Intermediate Hives Verified 10/13/23 21:55 Sulfa (Sulfonamide Allergy Intermediate Hives Verified 10/13/23 21:55 Antibiotics) Home Medications Medication Instructions Recorded Confirmed Type [id number]-funsqfycwlzqu-zpggwnhn 250 1 tab PO Q6H PRN Migraine Headache 10/13/23 10/13/23 History mg-250 mg-65 mg tablet (Excedrin Migraine) azelastine 137 mcg (0.1 %) nasal 1 spray intranasal AMHS 10/13/23 10/13/23 History spray buspirone 15 mg tablet 15 mg PO AMPM 10/13/23 10/13/23 History cyanocobalamin (vitamin B-12) 1,000 mcg sublingual DAILY 10/13/23 10/13/23 History 1,000 mcg sublingual tablet fenofibrate 160 mg tablet 160 mg PO QAM 10/13/23 10/13/23 History fluoxetine 40 mg capsule 40 mg PO QAM 10/13/23 10/13/23 History lamotrigine 150 mg tablet 150 mg PO AMHS 10/13/23 10/13/23 History lorazepam 0.5 mg tablet 0.5 mg PO DAILY PRN Anxiety 10/13/23 10/13/23 History prazosin 1 mg capsule 1 mg PO HS 10/13/23 10/13/23 History prazosin 2 mg capsule 2 mg PO HS 10/13/23 10/13/23 History prazosin 5 mg capsule 5 mg PO HS 10/13/23 10/13/23 History rosuvastatin 5 mg tablet 5 mg PO QAM 10/13/23 10/13/23 History trazodone 100 mg tablet 250 mg PO HS 10/13/23 10/13/23 History valacyclovir 500 mg tablet 500 mg PO BID PRN Flare ups 10/13/23 10/13/23 History Patient History Social History Smoking Status: Never smoker Hx Alcohol Use: No Hx Substance Use: No Preferred Language: Greenlandic Communication Ability: Effective Flitch Hanger Required: No Beliefs That Will Affect Care: Mosque Mosque Beliefs: holiness Current Living Situation: Alone Current Living Situation Comment: has home health -fridays Other Information That Helps Us Care for You: No Feels Safe at Home: Yes Safety Concerns: Feels Safe At This Time Assistive Devices: None Review of Systems Review of Systems: All systems reviewed & are unremarkable except as noted in HPI & below Constitutional: as per Subjective / HPI Eyes: as per Subjective / HPI Ear, Nose, Mouth, Throat: as per Subjective / HPI Respiratory: as per Subjective / HPI Cardiovascular: as per Subjective / HPI Gastrointestinal: as per Subjective / HPI Genitourinary: as per Subjective / HPI Musculoskeletal: as per Subjective / HPI Integumentary: as per Subjective / HPI Neurologic: as per Subjective / HPI Psychiatric: as per Subjective / HPI Endocrine: as per Subjective / HPI Hematologic / Lymphatic: as per Subjective / HPI Allergy / Immunological: as per Subjective / HPI Physical Exam Constitutional: WD/WN, vitals as above Eyes: PERRL, conjunctivae normal, anicteric sclerae ENMT: external ear and nose normal, oropharynx normal Neck: trachea midline, no thyromegaly Respiratory: normal respiratory effort, lungs clear to auscultation Cardiovascular: RRR, no murmur, no edema Gastrointestinal (Abdomen): normal bowel sounds, soft, nontender, no hepatosplenomegaly Musculoskeletal: no cyanosis or clubbing, extremities motor strength 5/5 Skin: no rashes, warm and dry Neurologic: patellar DTR's 2+ bilat, sensation intact Psychiatric: A+Ox3, euthymic affect Lymphatic: no cervical or axillary lymphadenopathy Results & Data Vital Signs (Past 12 Hours) Vital Signs Temp Pulse Pulse Resp BP Pulse Ox O2 Del Method 10/16/23 15:20 37.2 C 67 16 111/75 93 Room Air 10/16/23 11:30 36.4 C L 70 16 92/64 L 92 Room Air 10/16/23 07:32 37.0 C 64 16 100/67 92 Room Air
--- NOTE | 2023-10-17 06:56 | Ultrasound Report ---
US duplex mesenteric HISTORY: 57 years-old Female abdominal pain acute generalized abdominal pain COMPARISON: CT 10/15/2023 TECHNIQUE: Multiple real-time sonographic images of the mesenteric vessels were obtained assessing gr ayscale appearance, color and spectral flow FINDINGS: No arterial occlusion or elevated peak systolic velocities identified within the celiac artery, super ior or inferior mesenteric arteries. Normal flow within the abdominal aorta, peak systolic velocities of 98 cm/s. IMPRESSION: Normal exam. ACT 112: Negative or not required by law. The above report was generated using voice recognition software. It may contain grammatical, syntax o r spelling errors. Electronically signed by: Glen Bran M.D. 10/17/2023 6:55 AM
[2023-10-17 08:45] LABS: Hematocrit (blood only) 30.9 % (37.0-47.0); Mean Corpuscular Hemoglobin 29.2 pg (25.0-34.0); Mean Corpuscular Hgb Conc 32.4 g/dL (32.0-36.0); Mean Corpuscular Volume 90.4 fL (80.0-100.0); Mean Platelet Volume 9.8 fL (9.4-12.4); Platelet Count 204 K/uL (130-400); RDW Coefficient of Variation 13.2 % (11.5-14.5); RDW Standard Deviation 43.3 fL (36.4-46.3); Red Blood Count 3.42 M/uL (4.20-5.40); White Blood Count 2.44 K/ul (4.8-10.8)
[2023-10-17 09:18] LABS: Albumin Globulin Ratio 1.4 (0.9-2); Albumin Level 3.3 gm/dl (3.4-5.0); BUN Creatinine Ratio 8.6 (10-20); Bilirubin,Total 0.3 mg/dl (0.2-1.0); Creatinine Clr Calc Pharmacy 86.8 ml/min; Est GFR (African American) 109.9 ml/min; Est GFR (Non-African American) 94.8 ml/min; Globulin 2.4 gm/dl (2.5-4.0); Phosphorus 1.6 mg/dl (2.5-4.9); Potassium 3.8 mmol/L (3.5-5.1); Total Protein 5.7 gm/dl (6.0-8.3)
[2023-10-17] MEDS: HYOSCYAMINE SULFATE 0.125 MG TAB PO PRN (09:45)
--- NOTE | 2023-10-17 09:45 | Hospitalist Progress Note ---
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 Imaging negative for pyelonephritis. Initially continued on Levaquin with symptomatic improvement. However, as of 10/14, patient with increased lower abdominal quadrant pains not consistent with UTI -- discomfort is reportedly similar to prior episodes of diverticulitis. Patient reports worse with eating/postprandial pain. Abdominal Pain, C/F Diverticulitis History of Diverticulitis, Large Colon Diverticulosis Pt c/o RLQ and mid to upper R quadrant pain today. Pt w/ previous history of laparoscopic cholecystectomy. She is also still experiencing some mild LLQ pain as well. LFTs and lipase both WNL, pt remains afebrile. Repeat CTAP on 10/14 showed the following: i. No bowel wall thickening or obstruction. ii. Normal appendix, bladder wall thickening. Pt previously on ciprofloxacin and levofloxacin. ABX regimen adjusted to cover potential GI source. Pt now on day 3 of aztreonam and Flagyl, will continue. CTAP also showed b/l atelectasis, continue w/ incentive spirometry. Will continue clear liquid diet for now. If pain continues to worsen further, could consider another repeat CTAP. GI saw and evaluated pt yesterday; Recommended trial of Levsin PRN and to obtain mesenteric doppler. Mesenteric doppler was normal - r/o ischemic colitis. Pt is not a candidate for EGD 2/2 acute hematologic concerns. Pt had an unremarkable colonoscopy in 2021 w/ [facility]. Will trial a dose of Levsin this AM and reassess abdominal pain. Acute Complicated Cystitis Admitting UA positive for infection. CTAP x 2 negative for pyelonephritis. ABX regimen outlined as above, will continue. Final urine culture growing E. coli (10/12). Preliminary blood cultures w/ NGTD - will continue to follow. Bicytopenia Iron Deficiency Anemia Anemia and leukopenia - ? ISO of infection Lyme testing negative. Pt not immunocompromised; however, neutropenia persists. WBC 1.82 yesterday (10/15) --> 2.44 today (10/16). Pt was recently started on an iron supplement. Hgb and Hct both improving slightly today (10/16). Peripheral smear was performed, results as below: "The peripheral smear is remarkable for a normocytic anemia and leukopenia. Iron studies show low iron which is at least a contributing factor for the anemia. A slight rouleaux is present, which can be seen in reactive conditions; however, if concern for an underlying issue is present then SPEP is recommended to exclude a plasma cell neoplasm. No evidence of myelodysplasia is seen." Serum protein electrophoresis pending - follow. Heme/onc saw and evaluated pt yesterday; Recommend pt has a bone marrow biopsy performed. Hypophosphatemia Phos 1.6 this morning (10/16); Will replete w/ IV 30mmol sodium phosphate. Will continue to monitor phos & replete PRN. Hypokalemia - Resolved K+ improved to 3.8 this morning (10/16); Pt was repleted w/ 40mEq of oral KCl yesterday. Will continue to monitor K+ & replete PRN. Hypomagnesemia - Resolved Mag improved to 2.0 this morning (10/16); Pt was repleted w/ IV mag x 2 bags yesterday. Will continue to monitor mag & replete PRN. Depression, ALEJO & PTSD: Can continue home medications. Partial Symptomatic Epilepsy w/ Simple Partial Seizures: On Lamictal [employer], will continue. Hyperlipidemia: Can continue statin therapy and fenofibrate. DVT Prophylaxis: SQ Lovenox Code Status: FULL CODE PCP: Yolande Aguilar DO Disposition: Admitted in Med/Surg Patient seen in collaboration with Dr. Bah. Please see addendum. I spent a total of 40 minutes coordinating, documenting, and providing care for this patient excluding time spent in the performance of separately billed services. This included personally reviewing all current laboratories and imaging studies, medical reconciliation, outpatient chart review and discussion with specialists. This chart was completed in part utilizing Speech Voice Recognition Software. Grammatical errors, random word insertions, pronoun errors, and incomplete sentences are an occasional consequence of this system due to software limitations, ambient noise, and hardware issues. Any formal questions or concerns about the content, text, or information contained within the body of this dictation should be directly addressed to the provider for clarification. Admission and Anticipated Discharge Date Admission Date: October 13, 2023 Supervising Physician Co-Signing Physician Notes I have seen and discussed the case with the collaborating advanced practitioner. I agree with the above PN. I have reviewed and confirmed the patients medical history, the findings on physical examination, and the patients diagnosis and treatment plan with Manish YUEN and agree with the information documented. Evaluated at bedside. Reports subjective improvement in abdominal pain, will to trial full liquids at this time. Exam benign. Labs with continued bicytopenia, SPEP pending #Abdominal pain Mesenteric doppler negative Levsin trial for functional pain #Fevers #Bicytopenia likely multifactorial given UTI but also reports history of nightsweats and intermittent fevers x1-2 months Discuss with Heme/onc urgency of bone marrow biopsy (IR not in house and cannot perform until next week, IP v OP?) #Acute cystitis continue aztreonam discontinue anaerobic coverage at this time given low suspicion for GI process day 05/31, consider macrobid upon d/c per pharm given no signs of pyelo/bacteremia rest of plan as above I spent a total of 35 minutes coordinating, documenting, and providing care for this patient excluding time spent in the performance of separately billed services. All of the aforementioned completed outside of collaborating with the assigned advanced practitioner for a full treatment plan. I have reviewed the advanced practitioner's documentation, and I agree with, and take responsibility for the plan of care Subjective Patient seen and examined at bedside in room W352-1. Patient reports ongoing pain in her lower abdominal region. Patient now also reporting pain in the mid to upper right abdominal region. She mentions that her abdominal pain gets worse with activity. Patient also endorsing an increase in urinary frequency today. Nurse was going to crush her medications and put them in pudding this morning; Patient had a significant amount of difficulty swallowing her pills yesterday. She denies any episodes of vomiting overnight or this morning. Patient had a bowel movement yesterday, no further bowel movements yet today. Patient remained afebrile overnight; she denies any SOB or chest pain. Review of Systems Review of Systems: At least ten systems reviewed and negative, except as noted in the HPI. Physical Exam Physical Exam: General: NAD, sitting up in bed, conversing appropriately. A+Ox3, euthymic affect. HEENT: Normocephalic, atraumatic. Conjunctivae normal, anicteric sclerae, oropharynx normal. Respiratory: Normal respiratory effort, lungs clear to auscultation, no wheeze, rales, rhonchi. No accessory muscle use. Cardiovascular: Regular rate, rhythm, no murmur, normal peripheral pulses, no BLE edema. Vessels: No JVD. Abdomen/GI: Normal bowel sounds, soft, tenderness to deep palpation in RLQ + RUQ + LLQ, no hepatosplenomegaly. Extremities/Musculoskeletal: No cyanosis or clubbing, extremities motor strength intact, moves all extremities. Neurologic: PERRL, EOMI, accommodation nl, no face palsy, no dysarthria. Skin: No rashes, normal color, warm/dry. Results & Data Results & Data Vital Signs (Past 12 Hours) Vital Signs Temp Pulse Resp BP Pulse Ox O2 Del Method 10/17/23 07:10 37.3 C 67 16 138/83 93 Room Air Laboratory Results Short CBC 10/17/23 Range/Units 07:06 WBC 2.44 L (4.8-10.8) K/ul Hgb 10.0 L (12.0-16.0) g/dl Hct 30.9 L (37.0-47.0) % Plt Count 204 (130-400) K/uL BMP 10/17/23 07:06 Sodium 144 Potassium 3.8 Chloride 115 H Carbon Dioxide 24 BUN 6 Creatinine 0.70 Glucose 79 Calcium 8.0 L Liver Function 10/17/23 Range/Units 07:06 Total Bilirubin 0.3 (0.2-1.0) mg/dl AST 26 (13-39) U/L ALT 18 (7-52) U/L Alkaline Phosphatase 42 (34-104) U/L Albumin 3.3 L (3.4-5.0) gm/dl Diagnostic Findings Chest X-Ray 10/13/23 17:56 XR chest 1V not portable CLINICAL HISTORY: Sepsis TECHNIQUE: Single frontal radiograph of the chest was obtained. Comparison: Comparison is made to chest radiograph 01/24/2017 FINDINGS: No lines and tubes are seen. The cardiomediastinal silhouette is normal. The lungs are clear. No evidence of pleural effusion or pneumothorax. IMPRESSION: No acute chest disease. ACT 112: Negative or not required by law. Electronically signed by: Lobo Mills M.D. 10/13/2023 6:52 PM Abdomen/Pelvis CT 10/13/23 19:55 Exam(s): CT ABDOMEN + PELVIS With Contrast IV Amt: 94 ml optiray 320 EXAM: CT Abdomen and Pelvis With Intravenous Contrast CLINICAL HISTORY: sepsis b/l abd pain going to back. TECHNIQUE: Axial computed tomography images of the abdomen and pelvis with intravenous contrast. CTDI is 25.03 mGy and DLP is 1228.91 mGy-cm. Automated exposure control was utilized for the study. A dose lowering technique was utilized adhering to the principles of ALARA. CONTRAST: Patient received 94 ml optiray 320 of IV contrast COMPARISON: CT abdomen and pelvis with contrast dated 09/01/2018 FINDINGS: Lung bases: Nonspecific curvilinear changes at the lung bases. No consolidation. ABDOMEN: Liver: Unremarkable. No mass. Gallbladder and bile ducts: Cholecystectomy. No ductal dilation. Pancreas: Unremarkable. No mass. No ductal dilation. Spleen: Unremarkable. No splenomegaly. Adrenals: Unremarkable. No mass. Kidneys and ureters: Kidneys demonstrate normal enhancement without pyelonephritis. Scattered subcentimeter presumed cortical cysts are too small to completely characterize. No obvious solid thing components. No hydronephrosis or obstructive nephrolithiasis. Stomach and bowel: Stomach is mildly distended with fluid and gas. No gastric mucosal thickening. No evidence for bowel obstruction. No definite asymmetric bowel mucosal abnormality. Minimal stool burden. Scattered diverticulosis without definitive diverticulitis. PELVIS: Appendix: A normal caliber appendix is noted extending along the posterior medial aspect of the cecum in the right lower quadrant. Bladder: Unremarkable. No mass. Reproductive: Unremarkable as visualized. ABDOMEN and PELVIS: Intraperitoneal space: Unremarkable. No free air. No significant fluid collection. Bones/joints: The thoracolumbar spine is intact without acute traumatic injury. No evidence for discitis/osteomyelitis. No dislocation. Soft tissues: Unremarkable. Vasculature: Unremarkable. No abdominal aortic aneurysm. Lymph nodes: Unremarkable. No enlarged lymph nodes. IMPRESSION: 1. The thoracolumbar spine is intact without acute traumatic injury. No evidence for discitis/osteomyelitis. No significant paraspinal soft tissue abnormality identified. 2. Nonspecific curvilinear changes at the lung bases. Favor subsegmental atelectasis. Subtle infection involving the left lower lobe is difficult to entirely exclude. Please correlate clinically. No pleural effusion. 3. No evidence for bowel obstruction. No definite asymmetric bowel mucosal abnormality. Minimal stool burden. Scattered diverticulosis without definitive diverticulitis. No free intraperitoneal fluid or pneumoperitoneum. Electronically signed by: Jed Nichols MD 10/13/23 23:33 PM Abdomen/Pelvis CT 10/15/23 14:[address] WITH IV CONTRAST CT DOSE: 1372.04 mGy.cm HISTORY: worsening abdominal pain TECHNIQUE: Multiaxial CT images of the abdomen and pelvis were performed following the use of intravenous contrast. A dose lowering technique was utilized adhering to the principles of ALARA. COMPARISON STUDY: Abdomen and pelvis CT 10/13/2023. FINDINGS: Patchy densities within the lower lobes posteriorly have slightly progressed. This could represent atelectasis or a pneumonia. This is most pronounced on the left. No pneumoperitoneum. No pneumatosis. No acute fractures identified. Prior cholecystectomy. Mild central intrahepatic bile duct dilatation which is slightly progressed. This could be due to the patient's postcholecystectomy state. However, recommend correlation with LFTs. There is normal caliber common bile duct. No hepatic or splenic masses. The adrenal gl ands unremarkable. A few subcentimeter hypodense bilateral renal lesions are again noted. These are to be too small to characterize but statistically represent cysts. No hydronephrosis. The main portal vein is patent. There is an 11 mm hypodense lesion within the pancreatic tail, unchanged. 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 Normal caliber abdominal aorta. No retroperitoneal or pelvic lymphadenopathy. Bladder wall thickening which may be due to underdistention. Prior hysterectomy. Colonic diverticulosis. No evidence for acute diverticulitis. No bowel wall thickening or obstruction. Normal appendix. IMPRESSION: 1. No bowel wall thickening or obstruction. 2. Normal appendix. 3. Bladder wall thickening which may be due to underdistention. Recommend c orrelation with urinalysis to exclude a cystitis. 4. Patchy airspace opacities within the lower lobes posteriorly have progressed. This could represent atelectasis or a pneumonia. 5. Mild intrahepatic bile duct dilatation. This is likely due to the patient's post cholecystectomy state. However, recommend correlation with LFTs. ACT 112: Negative or not required by law. Electronically signed by: Casey Betancourt M.D. 10/15/2023 3:18 PM Mesenteric US 10/16/23 14:39 US duplex mesenteric HISTORY: 57 years-old Female abdominal pain acute generalized abdominal pain COMPARISON: CT 10/15/2023 TECHNIQUE: Multiple real-time sonographic images of the mesenteric vessels were obtained assessing grayscale appearance, color and spectral flow FINDINGS: No arterial occlusion or elevated peak systolic velocities identified within the celiac artery, superior or inferior mesenteric arteries. Normal flow within the abdominal aorta, peak systolic velocities of 98 cm/s. IMPRESSION: Normal exam. ACT 112: Negative or not required by law. The above report was generated using voice recognition software. It may contain grammatical, syntax or spelling errors. Electronically signed by: Glen Bran M.D. 10/17/2023 6:55 AM Medications Administered Acetaminophen (Acetaminophen 325 Mg Tab) 650 mg PO Q4H PRN PRN Reason: pain/fever Stop: 11/13/23 00:39 Last Admin: 10/15/23 20:00 Dose: 650 mg Documented By: Admin: 10/14/23 16:02 Dose: 650 mg Documented By: Admin: 10/14/23 07:46 Dose: 650 mg Documented By: SHANIQUE Acetaminophen/Butalbital/Caffeine (Butalbital/Acetamin/Caffeine Tab) 1 tab PO Q6H PRN PRN Reason: Headache Stop: 11/13/23 21:00 Last Admin: 10/15/23 17:37 Dose: 1 tab Documented By: Admin: 10/14/23 21:55 Dose: 1 tab Documented By: JULIA Azelastine HCl (Azelastine Hcl 0.1% Nasal 200 Sprays/27,400 Mcg Btl) 1 sprays NA BID GANESH Stop: 11/13/23 08:59 Last Admin: 10/17/23 08:32 Dose: 1 sprays Documented By: Admin: 10/16/23 20:04 Dose: 1 sprays Documented By: Admin: 10/16/23 08:26 Dose: 1 sprays Documented By: Admin: 10/15/23 20:02 Dose: 1 sprays Documented By: Admin: 10/15/23 08:30 Dose: 1 sprays Documented By: Admin: 10/14/23 20:16 Dose: 1 sprays Documented By: Admin: 10/14/23 09:10 Dose: 1 sprays Documented By: SHANIQUE Buspirone HCl (Buspirone 15 Mg Tab) 15 mg PO BID GANESH Stop: 11/13/23 00:39 Last Admin: 10/17/23 08:27 Dose: 15 mg Documented By: Admin: 10/16/23 20:04 Dose: 15 mg Documented By: Admin: 10/16/23 08:14 Dose: 15 mg Documented By: Admin: 10/15/23 20:01 Dose: 15 mg Documented By: Admin: 10/15/23 08:32 Dose: 15 mg Documented By: Admin: 10/14/23 20:17 Dose: 15 mg Documented By: Admin: 10/14/23 10:56 Dose: 15 mg Documented By: Admin: 10/14/23 01:41 Dose: 15 mg Documented By: BRAXTON Cyanocobalamin (Cyanocobalamin (B-12) 500 Mcg Tablet) 1,000 mcg PO DAILY GANESH Stop: 11/13/23 08:59 Last Admin: 10/17/23 08:27 Dose: 1,000 mcg Documented By: Admin: 10/16/23 08:15 Dose: 1,000 mcg Documented By: Admin: 10/15/23 08:32 Dose: 1,000 mcg Documented By: Admin: 10/14/23 09:12 Dose: 1,000 mcg Documented By: SHANIQUE Enoxaparin Sodium (Enoxaparin Inj 40 Mg/0.4 Ml Syr) 40 mg SQ Q24H GANESH Stop: 11/13/23 08:59 Last Admin: 10/17/23 08:44 Dose: 40 mg Documented By: Admin: 10/16/23 08:26 Dose: 40 mg Documented By: Admin: 10/15/23 08:32 Dose: Not Given Documented By: Admin: 10/14/23 09:12 Dose: Not Given Documented By: SHANIQUE Ferrous Sulfate (Ferrous Sulfate 325 Mg Tab) 325 mg PO QAM GANESH Stop: 11/14/23 08:59 Last Admin: 10/17/23 08:27 Dose: 325 mg Documented By: Admin: 10/16/23 08:14 Dose: 325 mg Documented By: Admin: 10/15/23 09:49 Dose: 325 mg Documented By: SHANIQUE Fluoxetine HCl (Fluoxetine Hcl 20 Mg Cap) 40 mg PO QAM GANESH Stop: 11/13/23 08:59 Last Admin: 10/17/23 08:27 Dose: 40 mg Documented By: Admin: 10/16/23 08:14 Dose: 40 mg Documented By: Admin: 10/15/23 09:49 Dose: 40 mg Documented By: Admin: 10/14/23 09:13 Dose: 40 mg Documented By: SHANIQUE Hydromorphone HCl (Hydromorphone Inj 0.5 Mg/0.5 Ml Syr) 0.5 mg IV Q6H PRN PRN Reason: Pain Stop: 10/28/23 09:03 Last Admin: 10/16/23 08:46 Dose: 0.5 mg Documented By: Admin: 10/15/23 20:43 Dose: 0.5 mg Documented By: Admin: 10/15/23 14:30 Dose: 0.5 mg Documented By: Admin: 10/15/23 08:26 Dose: 0.5 mg Documented By: Admin: 10/14/23 16:02 Dose: 0.5 mg Documented By: SHANIQUE Promethazine HCl 12.5 mg/ (Sodium Chloride) 50.5 mls @ 202 mls/hr IV Q6H PRN PRN Reason: Nausea And Vomiting Stop: 11/13/23 21:00 Last Infusion: 10/16/23 11:35 Dose: Infused Documented By: Admin: 10/16/23 11:01 Dose: 202 mls/hr Documented By: Infusion: 10/14/23 21:43 Dose: Infused Documented By: Admin: 10/14/23 21:26 Dose: 202 mls/hr Documented By: JULIA Metronidazole (Flagyl) 500 mg in 100 mls @ 100 mls/hr IV Q8H GANESH; Protocol Stop: 10/25/23 08:29 Last Infusion: 10/17/23 07:35 Dose: Infused Documented By: Admin: 10/17/23 05:38 Dose: 100 mls/hr Documented By: Infusion: 10/16/23 22:52 Dose: Infused Documented By: Admin: 10/16/23 21:37 Dose: 100 mls/hr Documented By: Infusion: 10/16/23 14:38 Dose: Infused Documented By: Admin: 10/16/23 12:40 Dose: 100 mls/hr Documented By: Infusion: 10/16/23 00:46 Dose: Infused Documented By: Admin: 10/15/23 23:35 Dose: 100 mls/hr Documented By: Infusion: 10/15/23 17:39 Dose: Infused Documented By: Admin: 10/15/23 16:39 Dose: 100 mls/hr Documented By: Infusion: 10/15/23 09:50 Dose: Infused Documented By: Admin: 10/15/23 08:50 Dose: 100 mls/hr Documented By: SHANIQUE Aztreonam 2,000 mg/ Dextrose 100 mls @ 100 mls/hr IV Q8H GANESH Stop: 10/25/23 15:59 Last Infusion: 10/17/23 05:20 Dose: Infused Documented By: Admin: 10/17/23 04:20 Dose: 100 mls/hr Documented By: Infusion: 10/16/23 21:29 Dose: Infused Documented By: Admin: 10/16/23 20:04 Dose: 100 mls/hr Documented By: Infusion: 10/16/23 12:44 Dose: Infused Documented By: Admin: 10/16/23 11:29 Dose: 100 mls/hr Documented By: Infusion: 10/16/23 00:46 Dose: Infused Documented By: Admin: 10/15/23 23:35 Dose: 100 mls/hr Documented By: Infusion: 10/15/23 17:26 Dose: Infused Documented By: Admin: 10/15/23 16:26 Dose: 100 mls/hr Documented By: SHANIQUE Lamotrigine (Lamotrigine 100 Mg Tab) 100 mg PO BID GANESH Stop: 11/13/23 08:59 Last Admin: 10/17/23 08:27 Dose: 100 mg Documented By: Admin: 10/16/23 20:04 Dose: 100 mg Documented By: Admin: 10/16/23 08:14 Dose: 100 mg Documented By: Admin: 10/15/23 20:01 Dose: 100 mg Documented By: Admin: 10/15/23 08:31 Dose: 100 mg Documented By: Admin: 10/14/23 20:17 Dose: 100 mg Documented By: Admin: 10/14/23 09:13 Dose: 100 mg Documented By: SHANIQUE Lamotrigine (Lamotrigine 25 Mg Tab) 50 mg PO BID GANESH Stop: 11/13/23 08:59 Last Admin: 10/17/23 08:26 Dose: 50 mg Documented By: Admin: 10/16/23 20:04 Dose: 50 mg Documented By: Admin: 10/16/23 08:14 Dose: 50 mg Documented By: Admin: 10/15/23 20:02 Dose: 50 mg Documented By: Admin: 10/15/23 08:31 Dose: 50 mg Documented By: Admin: 10/14/23 20:17 Dose: 50 mg Documented By: Admin: 10/14/23 09:13 Dose: 50 mg Documented By: SHANIQUE Prazosin HCl (Prazosin Hcl 1 Mg Cap) 8 mg PO GANESH Stop: 11/13/23 20:59 Last Admin: 10/16/23 20:04 Dose: 8 mg Documented By: Admin: 10/15/23 20:00 Dose: 8 mg Documented By: Admin: 10/14/23 20:18 Dose: 8 mg Documented By: JULIA Rosuvastatin Calcium (Rosuvastatin Calcium 5 Mg Tab) 5 mg PO QAM GANESH Stop: 11/13/23 08:59 Last Admin: 10/17/23 08:27 Dose: 5 mg Documented By: Admin: 10/16/23 08:14 Dose: 5 mg Documented By: Admin: 10/15/23 08:33 Dose: 5 mg Documented By: Admin: 10/14/23 09:14 Dose: 5 mg Documented By: SHANIQUE Trazodone HCl (Trazodone Hcl 100 Mg Tab) 250 mg PO [facility] Stop: 11/13/23 20:59 Last Admin: 10/16/23 22:51 Dose: 250 mg Documented By: Admin: 10/15/23 21:53 Dose: 250 mg Documented By: Admin: 10/14/23 21:55 Dose: 250 mg Documented By: JULIA Discontinued Medications Acetaminophen (Acetaminophen 325 Mg Tab) 650 mg PO NOW STA Stop: 10/13/23 17:57 Last Admin: 10/13/23 18:15 Dose: 650 mg Documented By: KRISTIN Hydromorphone HCl (Hydromorphone Inj 0.5 Mg/0.5 Ml Syr) 0.5 mg IV NOW STA Stop: 10/14/23 09:05 Last Admin: 10/14/23 09:18 Dose: 0.5 mg Documented By: SHANIQUE Doxycycline Hyclate 100 mg/ (Dextrose) 100 mls @ 50 mls/hr IV NOW STA Stop: 10/13/23 21:51 Last Infusion: 10/14/23 00:41 Dose: Infused Documented By: Admin: 10/13/23 22:20 Dose: 50 mls/hr Documented By: NINI Levofloxacin/Dextrose (Levaquin/D5w) 750 mg in 150 mls @ 100 mls/hr IV NOW STA Stop: 10/13/23 21:21 Last Infusion: 10/13/23 22:20 Dose: Infused Documented By: Admin: 10/13/23 20:32 Dose: 100 mls/hr Documented By: DARLINE Sodium Chloride (Nss) 1,000 mls @ 999 mls/hr IV .Q1H1M GANESH Stop: 10/13/23 22:00 Last Infusion: 10/14/23 00:12 Dose: Infused Documented By: Admin: 10/13/23 22:04 Dose: 999 mls/hr Documented By: Infusion: 10/13/23 21:33 Dose: Infused Documented By: Admin: 10/13/23 20:32 Dose: 999 mls/hr Documented By: DARLINE Sodium Chloride (Nss) 1,000 mls @ 100 mls/hr IV .Q10H GANESH Stop: 10/14/23 20:39 Last Infusion: 10/14/23 21:00 Dose: Infused Documented By: Admin: 10/14/23 10:56 Dose: 100 mls/hr Documented By: Infusion: 10/14/23 10:56 Dose: Infused Documented By: Admin: 10/14/23 01:38 Dose: 100 mls/hr Documented By: BRAXTON Levofloxacin/Dextrose (Levaquin/D5w) 500 mg in 100 mls @ 100 mls/hr IV Q24H GANESH; Protocol Stop: 10/24/23 20:59 Last Infusion: 10/14/23 21:16 Dose: Infused Documented By: Admin: 10/14/23 20:13 Dose: 100 mls/hr Documented By: JULIA Sodium Phosphate 21 mmol/ (Sodium Chloride) 507 mls @ 145 mls/hr IV ONE ONE Stop: 10/15/23 10:29 Last Infusion: 10/15/23 11:46 Dose: Infused Documented By: Admin: 10/15/23 08:16 Dose: 145 mls/hr Documented By: SHANIQUE Ciprofloxacin (Cipro / D5w) 400 mg in 200 mls @ 100 mls/hr IV Q12H GANESH; Protocol Stop: 10/25/23 08:29 Last Infusion: 10/15/23 11:50 Dose: Infused Documented By: Admin: 10/15/23 09:50 Dose: 100 mls/hr Documented By: SHANIQUE Sodium Chloride (Nss) 1,000 mls @ 125 mls/hr IV .Q8H GANESH Stop: 11/14/23 08:29 Last Infusion: 10/16/23 12:44 Dose: Infused Documented By: Admin: 10/16/23 05:16 Dose: 125 mls/hr Documented By: Infusion: 10/16/23 05:16 Dose: Infused Documented By: Admin: 10/15/23 21:16 Dose: 125 mls/hr Documented By: Infusion: 10/15/23 17:49 Dose: Infused Documented By: Admin: 10/15/23 09:49 Dose: 125 mls/hr Documented By: SHANIQUE Magnesium Sulfate/Dextrose (Magnesium Sulfate / D5w) 1 gm in 100 mls @ 50 mls/hr IV Q2H GANESH Stop: 10/16/23 11:29 Last Infusion: 10/16/23 13:32 Dose: Infused Documented By: Admin: 10/16/23 11:23 Dose: 50 mls/hr Documented By: Infusion: 10/16/23 11:23 Dose: Infused Documented By: Admin: 10/16/23 09:33 Dose: 50 mls/hr Documented By: ESTRELLA Ioversol (Optiray 320 100ml) 94 ml IV ONCE ONE Stop: 10/13/23 20:07 Last Admin: 10/13/23 20:06 Dose: 94 ml Documented By: SOPHIA Ioversol (Optiray 320 100ml) 94 ml IV ONCE ONE Stop: 10/15/23 14:46 Last Admin: 10/15/23 14:46 Dose: 94 ml Documented By: NEAL Mcadamscellaneous (Excedrin Migraine - Order Awaiting Action) 1 each N/A QS GANESH Stop: 11/13/23 07:59 Last Admin: 10/15/23 17:00 Dose: Not Given Documented By: Admin: 10/15/23 08:26 Dose: Not Given Documented By: Admin: 10/15/23 00:06 Dose: Not Given Documented By: Admin: 10/14/23 16:03 Dose: Not Given Documented By: ADMich Admin: 10/14/23 09:09 Dose: Not Given Documented By: SHANIQUE Miscellaneous (Fenofibrate 160 Mg - Order Awaiting Action) 1 each N/A QS GANESH Stop: 11/13/23 07:59 Last Admin: 10/15/23 17:00 Dose: Not Given Documented By: Admin: 10/15/23 08:26 Dose: Not Given Documented By: Admin: 10/15/23 00:06 Dose: Not Given Documented By: Admin: 10/14/23 16:03 Dose: Not Given Documented By: Admin: 10/14/23 09:09 Dose: Not Given Documented By: SHANIQUE Potassium Chloride (Potassium Chloride Crtab 20 Meq Tabcr) 40 meq PO NOW STA Stop: 10/16/23 07:22 Last Admin: 10/16/23 08:14 Dose: 40 meq Documented By: ESTRELLA
[2023-10-17] MEDS ORDERED: SODIUM PHOSPHATE 3 MMOL/1 ML 5 ML VIAL IV ONE (09:53)
[2023-10-17] MEDS: SODIUM PHOSPHATE 30 MMOL in SODIUM CHLORIDE 0.9% 500 ML IV ONE (10:25)
--- NOTE | 2023-10-17 11:43 | Gastroenterology Progress Note ---
Date of Service October 17, 2023 Assessment & Plan (1) RLQ abdominal pain: Plan: Improving with Levsin. Nause improved as well and patient is tolerating a diet today. She is not a candidate for endoscopic procedures due to her acute hematologic issues. Mesenteric US unremarkable. -Continue Levsin 0.125 mg q 6 hr -Can consider outpatient endoscopic evaluation with [facility] once acute hematologic concerns are addressed/optimized. Admission and Anticipated Discharge Date Admission Date: October 13, 2023 Supervising Physician Co-Signing Physician Notes I personally saw and examined the patient. I have reviewed the chart and agree with the documentation provided by the [employer] including discussion about the ass essment, treatment and plan. Slow and steady improvement on levsin. doppler usono negative. outpt followup. Subjective Patient is a 57 yo female with abdominal pain, nausea & decreased appetite. Yesterday she underwent a mesenteric US that was unremarkable. She notes improvement with Levsin. She was able to tolerate a diet this morning without n ausea or vomiting. She is in the midst of a work-up with hematology including plans for a bone marrow biopsy. Review of Systems Gastrointestinal: Pain & nausea improved Physical Exam Constitutional: well developed Respiratory: normal respiratory effort Cardiovascular: Rate/Rhythm: regular rate Gastrointestinal (Abdomen): normal bowel sounds, soft, nontender, no hepatosplenomegaly Results & Data Results & Data Vital Signs (Past 12 Hours) Vital Signs Temp Pulse Resp BP Pulse Ox O2 Del Method 10/17/23 07:10 37.3 C 67 16 138/83 93 Room Air PG Care Time/CCT Total # of Minutes Spent Total Time Spent with Patient: Total time spent is greater than 50% in coordination of care (as documented) at patient's floor/unit and/or counseling patient: Coding Level of Care Code 50427 SUB INP/OBS CARE 3/50MIN Diagnoses RLQ abdominal pain R10.31
--- NOTE | 2023-10-18 07:09 | Hospitalist Progress Note ---
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 Imaging negative for pyelonephritis. Initially continued on Levaquin with symptomatic improvement. However, as of 10/14, patient with increased lower abdominal quadrant pains not consistent with UTI -- discomfort is reportedly similar to prior episodes of diverticulitis. Patient reports worse with eating/postprandial pain. Abdominal Pain, C/F Diverticulitis History of Diverticulitis, Large Colon Diverticulosis Pt c/o RLQ and mid to upper R quadrant pain still. Pt w/ previous history of laparoscopic cholecystectomy. She is also still experiencing some mild LLQ pain as well. LFTs and lipase both WNL, pt remains afebrile. Repeat CTAP on 10/14 showed the following: i. No bowel wall thickening or obstruction. ii. Normal appendix, bladder wall thickening. Pt had an unremarkable colonoscopy in 2021 w/ [facility]. Pt previously on ciprofloxacin and levofloxacin. Discontinued anaerobic coverage w/ Flagyl yesterday; 2/2 low suspicion of GI process occurring. On day 4 of aztreonam therapy - will continue. Consider Macrobid upon d/c per pharm given no signs of pyelo/bacteremia. Will continue w/ clear liquid diet for now - pt tolerating just fine. Looking to potentially advance her diet with some soft foods tomorrow. GI following pt since 10/15; Mesenteric doppler was normal - r/o ischemic colitis. Pt is not a candidate for EGD while inpatient 2/2 acute hematologic concerns. Pt does note improvement in abd pain and nausea w/ Levsin - will continue. Could consider outpatient endoscopic eval w/ [facility] once acute hematologic concerns are addressed. If her abdominal pain would worsen, could consider another repeat CTAP. Acute Complicated Cystitis Admitting UA positive for infection. CTAP x 2 negative for pyelonephritis. Continue ABX coverage w/ aztreonam. Final urine culture growing E. coli (10/12). Preliminary blood cultures w/ [facility] - will continue to follow. Consider Macrobid upon d/c per pharm given no signs of pyelo/bacteremia. CTAP did show b/l atelectasis, continue w/ incentive spirometry. Bicytopenia Iron Deficiency Anemia Anemia and leukopenia - ? ISO of infection Lyme testing negative. Pt not immunocompromised; however, neutropenia persists. Pt was recently started on an iron supplement. Hgb and Hct both continuing to improve slowly. Peripheral smear was performed, results as below: "The peripheral smear is remarkable for a normocytic anemia and leukopenia. Iron studies show low iron which is at least a contributing factor for the anemia. A slight rouleaux is present, which can be seen in reactive conditions; however, if concern for an underlying issue is present then SPEP is recommended to exclud e a plasma cell neoplasm. No evidence of myelodysplasia is seen." Serum protein electrophoresis still pending - follow. Heme/onc saw and evaluated pt on 10/15; Recommend pt has a bone marrow biopsy performed. Pt has been scheduled for an outpatient bone marrow biopsy on 10/26. Hypophosphatemia Phos still low at 2.4 today; Repleted again this morning with IV KPhos. Will continue to monitor phos & replete PRN. Hypokalemia - Resolved K+ remains WNL at 3.7 today; Will continue to monitor K+ & replete PRN. Hypomagnesemia - Resolved Mag remains WNL at 1.8 today; Will continue to monitor mag & replete PRN. Depression, ALEJO & PTSD: Can continue home medications. Partial Symptomatic Epilepsy w/ Simple Partial Seizures: On [employer], will continue. Seizure precautions in place. Hyperlipidemia: Can continue statin therapy and fenofibrate. DVT Prophylaxis: SQ Lovenox Code Status: FULL CODE PCP: Yolande Aguilar DO Disposition: Planning for patient to be discharged to home tomorrow pending PT evaluation. Patient seen in collaboration with Dr. Momin. Please see addendum. I spent a total of 35 minutes coordinating, documenting, and providing care for this patient excluding time spent in the performance of separately billed services. This included personally reviewing all current laboratories and kristin ging studies, medical reconciliation, outpatient chart review and discussion with specialists. This chart was completed in part utilizing Speech Voice Recognition Software. Grammatical errors, random word insertions, pronoun errors, and incomplete sentences are an occasional consequence of this system due to software limitations, ambient noise, and hardware issues. Any formal questions or concern s about the content, text, or information contained within the body of this dictation should be directly addressed to the provider for clarification. Admission and Anticipated Discharge Date Admission Date: October 13, 2023 Supervising Physician Co-Signing Physician Notes Pt was seen and examined by myself, Fatemeh Momin MD on the day of service. Care was coordinated with Abida Zaragoza PA-C. 57yoF currently being treated for acute cystitis and chronic abdominal/flank pain with IV Aztreonam. On exam, AAO, tender in right upper flank Denies acute concerns otherwise. Appreciate GI recs. Outpt bone biopsy scheduled with heme/onc followup for noted leukopenia and anemia. Electrolyte abnormalities, replete as needed Otherwise as above. I spent a total [id number] coordinating, documenting, and providing care for this patient excluding time spent in the performance of separately billed services Subjective Patient seen and examined at bedside in room W352-1. Patient still reporting ongoing lower abdominal pain and discomfort. However, the pain has been improving with the trial of Levsin ordered by GI. She is still battling some intermittent nausea, but she mentions it is getting better with the Levsin. Patient denies any SOB, chest pain, fevers overnight or body aches/chills. She mentions that she was able to swallow her pills one by one this morning without much difficulty. Previously, the patient had become very nauseous and would start to wretch when taking her pills. Patient is still on the full liquid diet and is tolerating fluid intake without issue. Review of Systems Review of Systems: At least ten systems reviewed and negative, except as noted in the HPI. Physical Exam Physical Exam: General: NAD, sitting up in bed, conversing appropriately, very pleasant. A+Ox3, euthymic affect. HEENT: Normocephalic, atraumatic. Conjunctivae normal, anicteric sclerae, oropharynx normal. Respiratory: Normal respiratory effort, lungs clear to auscultation, no wheeze, rales, rhonchi. No accessory muscle use. Cardiovascular: Regular rate, rhythm, no murmur, normal peripheral pulses, no BLE edema. Vessels: No JVD. Abdomen/GI: Normal bowel sounds, soft, tenderness to deep palpation in RLQ + RUQ + LLQ, no hepatosplenomegaly. Extremities/Musculoskeletal: No cyanosis or clubbing, extremities motor strength intact, moves all extremities. Neurologic: PERRL, EOMI, accommodation nl, no face palsy, no dysarthria. Skin: No rashes, normal color, warm/dry. Results & Data Results & Data Vital Signs (Past 12 Hours) Vital Signs Temp Pulse Resp BP Pulse Ox O2 Del Method 10/17/23 19:56 37 C 73 18 128/79 93 Room Air Laboratory Results Short CBC 10/18/23 Range/Units 07:15 WBC 2.51 L (4.8-10.8) K/ul Hgb 10.5 L (12.0-16.0) g/dl Hct 32.0 L (37.0-47.0) % Plt Count 237 (130-400) K/uL BMP 10/18/23 07:15 Sodium 145 Potassium 3.7 Chloride 114 H Carbon Dioxide 26 BUN 7 Creatinine 0.68 Glucose 85 Calcium 8.3 L Diagnostic Findings Chest X-Ray 10/13/23 17:56 XR chest 1V not portable CLINICAL HISTORY: Sepsis TECHNIQUE: Single frontal radiograph of the chest was obtained. Comparison: Comparison is made to chest radiograph 01/24/2017 FINDINGS: No lines and tubes are seen. The cardiomediastinal silhouette is normal. The lungs are clear. No evidence of pleural effusion or pneumothorax. IMPRESSION: No acute chest disease. ACT 112: Negative or not required by law. Electronically signed by: Lobo Mills M.D. 10/13/2023 6:52 PM Abdomen/Pelvis CT 10/13/23 19:55 Exam(s): CT ABDOMEN + PELVIS With Contrast IV Amt: 94 ml optiray 320 EXAM: CT Abdomen and Pelvis With Intravenous Contrast CLINICAL HISTORY: sepsis b/l abd pain going to back. TECHNIQUE: Axial computed tomography images of the abdomen and pelvis with intravenous contrast. CTDI is 25.03 mGy and DLP is 1228.91 mGy-cm. Automated exposure control was utilized for the study. A dose lowering technique was utilized adhering to the principles of ALARA. CONTRAST: Patient received 94 ml optiray 320 of IV contrast COMPARISON: CT abdomen and pelvis with contrast dated 09/01/2018 FINDINGS: Lung bases: Nonspecific curvilinear changes at the lung bases. No consolidation. ABDOMEN: Liver: Unremarkable. No mass. Gallbladder and bile ducts: Cholecystectomy. No ductal dilation. Pancreas: Unremarkable. No mass. No ductal dilation. Spleen: Unremarkable. No splenomegaly. Adrenals: Unremarkable. No mass. Kidneys and ureters: Kidneys demonstrate normal enhancement without pyelonephritis. Scattered subcentimeter presumed cortical cysts are too small to completely characterize. No obvious solid thing components. No hydronephrosis or obstructive nephrolithiasis. Stomach and bowel: Stomach is mildly distended with fluid and gas. No gastric mucosal thickening. No evidence for bowel obstruction. No definite asymmetric bowel mucosal abnormality. Minimal stool burden. Scattered diverticulosis without definitive diverticulitis. PELVIS: Appendix: A normal caliber appendix is noted extending along the posterior medial aspect of the cecum in the right lower quadrant. Bladder: Unremarkable. No mass. Reproductive: Unremarkable as visualized. ABDOMEN and PELVIS: Intraperitoneal space: Unremarkable. No free air. No significant fluid collection. Bones/joints: The thoracolumbar spine is intact without acute traumatic injury. No evidence for discitis/osteomyelitis. No dislocation. Soft tissues: Unremarkable. Vasculature: Unremarkable. No abdominal aortic aneurysm. Lymph nodes: Unremarkable. No enlarged lymph nodes. IMPRESSION: 1. The thoracolumbar spine is intact without acute traumatic injury. No evidence for discitis/osteomyelitis. No significant paraspinal soft tissue abnormality identified. 2. Nonspecific curvilinear changes at the lung bases. Favor subsegmental atelectasis. Subtle infection involving the left lower lobe is difficult to entirely exclude. Please correlate clinically. No pleural effusion. 3. No evidence for bowel obstruction. No definite asymmetric bowel mucosal abnormality. Minimal stool burden. Scattered diverticulosis without definitive diverticulitis. No free intraperitoneal fluid or pneumoperitoneum. Electronically signed by: Jed Nichols MD 10/13/23 23:33 PM Abdomen/Pelvis CT 10/15/23 14:[address] WITH IV CONTRAST CT DOSE: 1372.04 mGy.cm HISTORY: worsening abdominal pain TECHNIQUE: Multiaxial CT images of the abdomen and pelvis were performed following the use of intravenous contrast. A dose lowering technique was utilized adhering to the principles of ALARA. COMPARISON STUDY: Abdomen and pelvis CT 10/13/2023. FINDINGS: Patchy densities within the lower lobes posteriorly have slightly progressed. This could represent atelectasis or a pneumonia. This is most pronounced on the left. No pneumoperitoneum. No pneumatosis. No acute fractures identified. Prior cholecystectomy. Mild central intrahepatic bile duct dilatation which is slightly progressed. This could be due to the patient's postcholecystectomy state. However, recommend correlation with LFTs. There is normal caliber common bile duct. No hepatic or splenic masses. The adrenal glands unremarkable. A few subcentimeter hypodense bilateral renal lesions are again noted. These are to be too small to characterize but statistically represent cysts. No hydronephrosis. The main portal vein is patent. There is an 11 mm hypodense lesion within the pancreatic tail, unchanged. 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 Normal caliber abdominal aorta. No retroperitoneal or pelvic lymphadenopathy. Bladder wall thickening which may be due to underdistention. Prior hysterectomy. Colonic diverticulosis. No evidence for acute diverticulitis. No bowel wall thickening or obstruction. Normal appendix. IMPRESSION: 1. No bowel wall thickening or obstruction. 2. Normal appendix. 3. Bladder wall thickening which may be due to underdistention. Recommend correlation with urinalysis to exclude a cystitis. 4. Patchy airspace opacities within the lower lobes posteriorly have progressed. This could represent atelectasis or a pneumonia. 5. Mild intrahepatic bile duct dilatation. This is likely due to the patient's post cholecystectomy state. However, recommend correlation with LFTs. ACT 112: Negative or not required by law. Electronically signed by: Casey Betancourt M.D. 10/15/2023 3:18 PM Mesenteric US 10/16/23 14:39 US duplex mesenteric HISTORY: 57 years-old Female abdominal pain acute generalized abdominal pain COMPARISON: CT 10/15/2023 TECHNIQUE: Multiple real-time sonographic images of the mesenteric vessels were obtained assessing grayscale appearance, color and spectral flow FINDINGS: No arterial occlusion or elevated peak systolic velocities identified within the celiac artery, superior or inferior mesenteric arteries. Normal flow within the abdominal aorta, peak systolic velocities of 98 cm/s. IMPRESSION: Normal exam. ACT 112: Negative or not required by law. The above report was generated using voice recognition software. It may contain grammatical, syntax or spelling errors. Electronically signed by: Glen Bran M.D. 10/17/2023 6:55 AM Medications Administered Acetaminophen (Acetaminophen 325 Mg Tab) 650 mg PO Q4H PRN PRN Reason: pain/fever Stop: 11/13/23 00:39 Last Admin: 10/15/23 20:00 Dose: 650 mg Documented By: Admin: 10/14/23 16:02 Dose: 650 mg Documented By: Admin: 10/14/23 07:46 Dose: 650 mg Documented By: SHANIQUE Acetaminophen/Butalbital/Caffeine (Butalbital/Acetamin/Caffeine Tab) 1 tab PO Q6H PRN PRN Reason: Headache Stop: 11/13/23 21:00 Last Admin: 10/15/23 17:37 Dose: 1 tab Documented By: Admin: 10/14/23 21:55 Dose: 1 tab Documented By: JULIA Azelastine HCl (Azelastine Hcl 0.1% Nasal 200 Sprays/27,400 Mcg Btl) 1 sprays NA BID GANESH Stop: 11/13/23 08:59 Last Admin: 10/18/23 08:09 Dose: 1 sprays Documented By: Admin: 10/17/23 20:07 Dose: 1 sprays Documented By: Admin: 10/17/23 08:32 Dose: 1 sprays Documented By: Admin: 10/16/23 20:04 Dose: 1 sprays Documented By: Admin: 10/16/23 08:26 Dose: 1 sprays Documented By: Admin: 10/15/23 20:02 Dose: 1 sprays Documented By: Admin: 10/15/23 08:30 Dose: 1 sprays Documented By: Admin: 10/14/23 20:16 Dose: 1 sprays Documented By: Admin: 10/14/23 09:10 Dose: 1 sprays Documented By: SHANIQUE Buspirone HCl (Buspirone 15 Mg Tab) 15 mg PO BID GANESH Stop: 11/13/23 00:39 Last Admin: 10/18/23 08:09 Dose: 15 mg Documented By: Admin: 10/17/23 20:06 Dose: 15 mg Documented By: Admin: 10/17/23 08:27 Dose: 15 mg Documented By: Admin: 10/16/23 20:04 Dose: 15 mg Documented By: Admin: 10/16/23 08:14 Dose: 15 mg Documented By: Admin: 10/15/23 20:01 Dose: 15 mg Documented By: Admin: 10/15/23 08:32 Dose: 15 mg Documented By: Admin: 10/14/23 20:17 Dose: 15 mg Documented By: Admin: 10/14/23 10:56 Dose: 15 mg Documented By: Admin: 10/14/23 01:41 Dose: 15 mg Documented By: BRAXTON Cyanocobalamin (Cyanocobalamin (B-12) 500 Mcg Tablet) 1,000 mcg PO DAILY GANESH Stop: 11/13/23 08:59 Last Admin: 10/18/23 08:10 Dose: 1,000 mcg Documented By: Admin: 10/17/23 08:27 Dose: 1,000 mcg Documented By: Admin: 10/16/23 08:15 Dose: 1,000 mcg Documented By: Admin: 10/15/23 08:32 Dose: 1,000 mcg Documented By: Admin: 10/14/23 09:12 Dose: 1,000 mcg Documented By: SHANIQUE Enoxaparin Sodium (Enoxaparin Inj 40 Mg/0.4 Ml Syr) 40 mg SQ Q24H GANESH Stop: 11/13/23 08:59 Last Admin: 10/18/23 08:14 Dose: 40 mg Documented By: Admin: 10/17/23 08:44 Dose: 40 mg Documented By: Admin: 10/16/23 08:26 Dose: 40 mg Documented By: Admin: 10/15/23 08:32 Dose: Not Given Documented By: Admin: 10/14/23 09:12 Dose: Not Given Documented By: SHANIQUE Ferrous Sulfate (Ferrous Sulfate 325 Mg Tab) 325 mg PO QAM GANESH Stop: 11/14/23 08:59 Last Admin: 10/18/23 08:11 Dose: 325 mg Documented By: Admin: 10/17/23 08:27 Dose: 325 mg Documented By: Admin: 10/16/23 08:14 Dose: 325 mg Documented By: Admin: 10/15/23 09:49 Dose: 325 mg Documented By: SHANIQUE Fluoxetine HCl (Fluoxetine Hcl 20 Mg Cap) 40 mg PO QAM GANESH Stop: 11/13/23 08:59 Last Admin: 10/18/23 08:11 Dose: 40 mg Documented By: Admin: 10/17/23 08:27 Dose: 40 mg Documented By: Admin: 10/16/23 08:14 Dose: 40 mg Documented By: Admin: 10/15/23 09:49 Dose: 40 mg Documented By: Admin: 10/14/23 09:13 Dose: 40 mg Documented By: SHANIQUE Hydromorphone HCl (Hydromorphone Inj 0.5 Mg/0.5 Ml Syr) 0.5 mg IV Q6H PRN PRN Reason: Pain Stop: 10/28/23 09:03 Last Admin: 10/16/23 08:46 Dose: 0.5 mg Documented By: Admin: 10/15/23 20:43 Dose: 0.5 mg Documented By: CWHaylee Admin: 10/15/23 14:30 Dose: 0.5 mg Documented By: Admin: 10/15/23 08:26 Dose: 0.5 mg Documented By: Admin: 10/14/23 16:02 Dose: 0.5 mg Documented By: SHANIQUE Hyoscyamine (Hyoscyamine Sulfate 0.125 Mg Tab) 0.125 mg PO Q4H PRN PRN Reason: Pain Stop: 11/15/23 14:43 Last Admin: 10/18/23 07:36 Dose: 0.125 mg Documented By: Admin: 10/17/23 09:45 Dose: 0.125 mg Documented By: CEF Promethazine HCl 12.5 mg/ (Sodium Chloride) 50.5 mls @ 202 mls/hr IV Q6H PRN PRN Reason: Nausea And Vomiting Stop: 11/13/23 21:00 Last Infusion: 10/16/23 11:35 Dose: Infused Documented By: Admin: 10/16/23 11:01 Dose: 202 mls/hr Documented By: Infusion: 10/14/23 21:43 Dose: Infused Documented By: Admin: 10/14/23 21:26 Dose: 202 mls/hr Documented By: JULIA Aztreonam 2,000 mg/ Dextrose 100 mls @ 100 mls/hr IV Q8H GANESH Stop: 10/25/23 15:59 Last Infusion: 10/18/23 12:24 Dose: Infused Documented By: Admin: 10/18/23 11:23 Dose: 100 mls/hr Documented By: Infusion: 10/18/23 05:31 Dose: Infused Documented By: Admin: 10/18/23 04:21 Dose: 100 mls/hr Documented By: Infusion: 10/17/23 21:07 Dose: Infused Documented By: Admin: 10/17/23 20:03 Dose: 100 mls/hr Documented By: Infusion: 10/17/23 12:29 Dose: Infused Documented By: Admin: 10/17/23 11:21 Dose: 100 mls/hr Documented By: Infusion: 10/17/23 05:20 Dose: Infused Documented By: Admin: 10/17/23 04:20 Dose: 100 mls/hr Documented By: Infusion: 10/16/23 21:29 Dose: Infused Documented By: Admin: 10/16/23 20:04 Dose: 100 mls/hr Documented By: Infusion: 10/16/23 12:44 Dose: Infused Documented By: Admin: 10/16/23 11:29 Dose: 100 mls/hr Documented By: Infusion: 10/16/23 00:46 Dose: Infused Documented By: Admin: 10/15/23 23:35 Dose: 100 mls/hr Documented By: Infusion: 10/15/23 17:26 Dose: Infused Documented By: Admin: 10/15/23 16:26 Dose: 100 mls/hr Documented By: ADMich Potassium Phosphate 15 mmol/ (Sodium Chloride) 255 mls @ 88 mls/hr IV ONE ONE Stop: 10/18/23 15:38 Last Admin: 10/18/23 13:01 Dose: 88 mls/hr Documented By: CEF Lamotrigine (Lamotrigine 100 Mg Tab) 100 mg PO BID GANESH Stop: 11/13/23 08:59 Last Admin: 10/18/23 08:12 Dose: 100 mg Documented By: Admin: 10/17/23 20:06 Dose: 100 mg Documented By: Admin: 10/17/23 08:27 Dose: 100 mg Documented By: Admin: 10/16/23 20:04 Dose: 100 mg Documented By: Admin: 10/16/23 08:14 Dose: 100 mg Documented By: Admin: 10/15/23 20:01 Dose: 100 mg Documented By: Admin: 10/15/23 08:31 Dose: 100 mg Documented By: Admin: 10/14/23 20:17 Dose: 100 mg Documented By: Admin: 10/14/23 09:13 Dose: 100 mg Documented By: SHANIQUE Lamotrigine (Lamotrigine 25 Mg Tab) 50 mg PO BID GANESH Stop: 11/13/23 08:59 Last Admin: 10/18/23 08:13 Dose: 50 mg Documented By: Admin: 10/17/23 20:06 Dose: 50 mg Documented By: Admin: 10/17/23 08:26 Dose: 50 mg Documented By: Admin: 10/16/23 20:04 Dose: 50 mg Documented By: Admin: 10/16/23 08:14 Dose: 50 mg Documented By: Admin: 10/15/23 20:02 Dose: 50 mg Documented By: Admin: 10/15/23 08:31 Dose: 50 mg Documented By: Admin: 10/14/23 20:17 Dose: 50 mg Documented By: Admin: 10/14/23 09:13 Dose: 50 mg Documented By: SHANIQUE Prazosin HCl (Prazosin Hcl 1 Mg Cap) 8 mg PO HS GANESH Stop: 11/13/23 20:59 Last Admin: 10/17/23 20:06 Dose: 8 mg Documented By: Admin: 10/16/23 20:04 Dose: 8 mg Documented By: Admin: 10/15/23 20:00 Dose: 8 mg Documented By: Admin: 10/14/23 20:18 Dose: 8 mg Documented By: JULIA Rosuvastatin Calcium (Rosuvastatin Calcium 5 Mg Tab) 5 mg PO QAM GANESH Stop: 11/13/23 08:59 Last Admin: 10/18/23 08:13 Dose: 5 mg Documented By: Admin: 10/17/23 08:27 Dose: 5 mg Documented By: Admin: 10/16/23 08:14 Dose: 5 mg Documented By: Admin: 10/15/23 08:33 Dose: 5 mg Documented By: Admin: 10/14/23 09:14 Dose: 5 mg Documented By: SHANIQUE Trazodone HCl (Trazodone Hcl 100 Mg Tab) 250 mg PO HS GANESH Stop: 11/13/23 20:59 Last Admin: 10/17/23 20:07 Dose: 250 mg Documented By: Admin: 10/16/23 22:51 Dose: 250 mg Documented By: Admin: 10/15/23 21:53 Dose: 250 mg Documented By: Admin: 10/14/23 21:55 Dose: 250 mg Documented By: JULIA Discontinued Medications Acetaminophen (Acetaminophen 325 Mg Tab) 650 mg PO NOW STA Stop: 10/13/23 17:57 Last Admin: 10/13/23 18:15 Dose: 650 mg Documented By: KRISTIN Hydromorphone HCl (Hydromorphone Inj 0.5 Mg/0.5 Ml Syr) 0.5 mg IV NOW STA Stop: 10/14/23 09:05 Last Admin: 10/14/23 09:18 Dose: 0.5 mg Documented By: SHANIQUE Doxycycline Hyclate 100 mg/ (Dextrose) 100 mls @ 50 mls/hr IV NOW STA Stop: 10/13/23 21:51 Last Infusion: 10/14/23 00:41 Dose: Infused Documented By: Admin: 10/13/23 22:20 Dose: 50 mls/hr Documented By: NINI Levofloxacin/Dextrose (Levaquin/D5w) 750 mg in 150 mls @ 100 mls/hr IV NOW STA Stop: 10/13/23 21:21 Last Infusion: 10/13/23 22:20 Dose: Infused Documented By: Admin: 10/13/23 20:32 Dose: 100 mls/hr Documented By: DARLINE Sodium Chloride (Nss) 1,000 mls @ 999 mls/hr IV .Q1H1M GANESH Stop: 10/13/23 22:00 Last Infusion: 10/14/23 00:12 Dose: Infused Documented By: Admin: 10/13/23 22:04 Dose: 999 mls/hr Documented By: Infusion: 10/13/23 21:33 Dose: Infused Documented By: Admin: 10/13/23 20:32 Dose: 999 mls/hr Documented By: DARLINE Sodium Chloride (Nss) 1,000 mls @ 100 mls/hr IV .Q10H GANESH Stop: 10/14/23 20:39 Last Infusion: 10/14/23 21:00 Dose: Infused Documented By: Admin: 10/14/23 10:56 Dose: 100 mls/hr Documented By: Infusion: 10/14/23 10:56 Dose: Infused Documented By: Admin: 10/14/23 01:38 Dose: 100 mls/hr Documented By: BRAXTON Levofloxacin/Dextrose (Levaquin/D5w) 500 mg in 100 mls @ 100 mls/hr IV Q24H GANESH; Protocol Stop: 10/24/23 20:59 Last Infusion: 10/14/23 21:16 Dose: Infused Documented By: Admin: 10/14/23 20:13 Dose: 100 mls/hr Documented By: JULIA Sodium Phosphate 21 mmol/ (Sodium Chloride) 507 mls @ 145 mls/hr IV ONE ONE Stop: 10/15/23 10:29 Last Infusion: 10/15/23 11:46 Dose: Infused Documented By: Admin: 10/15/23 08:16 Dose: 145 mls/hr Documented By: SHANIQUE Ciprofloxacin (Cipro / D5w) 400 mg in 200 mls @ 100 mls/hr IV Q12H GANESH; Protocol Stop: 10/25/23 08:29 Last Infusion: 10/15/23 11:50 Dose: Infused Documented By: Admin: 10/15/23 09:50 Dose: 100 mls/hr Documented By: SHANIQUE Metronidazole (Flagyl) 500 mg in 100 mls @ 100 mls/hr IV Q8H GANESH; Protocol Stop: 10/25/23 08:29 Last Infusion: 10/17/23 07:35 Dose: Infused Documented By: Admin: 10/17/23 05:38 Dose: 100 mls/hr Documented By: Infusion: 10/16/23 22:52 Dose: Infused Documented By: Admin: 10/16/23 21:37 Dose: 100 mls/hr Documented By: Infusion: 10/16/23 14:38 Dose: Infused Documented By: Admin: 10/16/23 12:40 Dose: 100 mls/hr Documented By: Infusion: 10/16/23 00:46 Dose: Infused Documented By: Admin: 10/15/23 23:35 Dose: 100 mls/hr Documented By: Infusion: 10/15/23 17:39 Dose: Infused Documented By: Admin: 10/15/23 16:39 Dose: 100 mls/hr Documented By: Infusion: 10/15/23 09:50 Dose: Infused Documented By: Admin: 10/15/23 08:50 Dose: 100 mls/hr Documented By: SHANIQUE Sodium Chloride (Nss) 1,000 mls @ 125 mls/hr IV .Q8H GANESH Stop: 11/14/23 08:29 Last Infusion: 10/16/23 12:44 Dose: Infused Documented By: Admin: 10/16/23 05:16 Dose: 125 mls/hr Documented By: Infusion: 10/16/23 05:16 Dose: Infused Documented By: Admin: 10/15/23 21:16 Dose: 125 mls/hr Documented By: Infusion: 10/15/23 17:49 Dose: Infused Documented By: Admin: 10/15/23 09:49 Dose: 125 mls/hr Documented By: SHANIQUE Magnesium Sulfate/Dextrose (Magnesium Sulfate / D5w) 1 gm in 100 mls @ 50 mls/hr IV Q2H [facility] Stop: 10/16/23 11:29 Last Infusion: 10/16/23 13:32 Dose: Infused Documented By: Admin: 10/16/23 11:23 Dose: 50 mls/hr Documented By: Infusion: 10/16/23 11:23 Dose: Infused Documented By: Admin: 10/16/23 09:33 Dose: 50 mls/hr Documented By: ESTRELLA Sodium Phosphate 30 mmol/ (Sodium Chloride) 510 mls @ 88 mls/hr IV ONE ONE Stop: 10/17/23 16:02 Last Infusion: 10/17/23 16:25 Dose: Infused Documented By: Admin: 10/17/23 10:25 Dose: 88 mls/hr Documented By: CEF Ioversol (Optiray 320 100ml) 94 ml IV ONCE ONE Stop: 10/13/23 20:07 Last Admin: 10/13/23 20:06 Dose: 94 ml Documented By: SOPHIA Ioversol (Optiray 320 100ml) 94 ml IV ONCE ONE Stop: 10/15/23 14:46 Last Admin: 10/15/23 14:46 Dose: 94 ml Documented By: NEAL Mcadamscellaneous (Excedrin Migraine - Order Awaiting Action) 1 each N/A QS GANESH Stop: 11/13/23 07:59 Last Admin: 10/15/23 17:00 Dose: Not Given Documented By: Admin: 10/15/23 08:26 Dose: Not Given Documented By: ADMich Admin: 10/15/23 00:06 Dose: Not Given Documented By: Admin: 10/14/23 16:03 Dose: Not Given Documented By: Admin: 10/14/23 09:09 Dose: Not Given Documented By: SHANIQUE Mcadamscellaneous (Fenofibrate 160 Mg - Order Awaiting Action) 1 each N/A QS GANESH Stop: 11/13/23 07:59 Last Admin: 10/15/23 17:00 Dose: Not Given Documented By: Admin: 10/15/23 08:26 Dose: Not Given Documented By: Admin: 10/15/23 00:06 Dose: Not Given Documented By: Admin: 10/14/23 16:03 Dose: Not Given Documented By: Admin: 10/14/23 09:09 Dose: Not Given Documented By: SHANIQUE Potassium Chloride (Potassium Chloride Crtab 20 Meq Tabcr) 40 meq PO NOW STA Stop: 10/16/23 07:22 Last Admin: 10/16/23 08:14 Dose: 40 meq Documented By: ESTRELLA
[2023-10-18 08:02] LABS: Hemoglobin 10.5 g/dl (12.0-16.0); Mean Corpuscular Hemoglobin 29.6 pg (25.0-34.0); Mean Corpuscular Hgb Conc 32.8 g/dL (32.0-36.0); Mean Corpuscular Volume 90.1 fL (80.0-100.0); Mean Platelet Volume 9.8 fL (9.4-12.4); Platelet Count 237 K/uL (130-400); RDW Standard Deviation 42.6 fL (36.4-46.3); Red Blood Count 3.55 M/uL (4.20-5.40); White Blood Count 2.51 K/ul (4.8-10.8)
[2023-10-18 08:15] LABS: BUN Creatinine Ratio 10.3 (10-20); Creatinine Clr Calc Pharmacy 89.4 ml/min; Est GFR (Non-African American) 95.7 ml/min; Potassium 3.7 mmol/L (3.5-5.1)
[2023-10-18 08:16] LABS: Calcium 8.3 mg/dl (8.6-10.3); Magnesium 1.8 mg/dl (1.7-2.4); Phosphorus 2.4 mg/dl (2.5-4.9)
[2023-10-18] MEDS ORDERED: POTASSIUM PHOS 3 MMOL/1 ML INFUSION IV STA (12:21)
[2023-10-18] MEDS: POTASSIUM PHOSPHATE 15 MMOL in SODIUM CHLORIDE 0.9% 250 ML IV ONE (13:01)
[2023-10-18] MEDS: POT PHOSPHATE MONOBASIC W/ SOD TAB PO SCH (20:14)
[2023-10-19 06:58] LABS: Hematocrit (blood only) 32.6 % (37.0-47.0); Hemoglobin 10.7 g/dl (12.0-16.0); Mean Corpuscular Hemoglobin 29.6 pg (25.0-34.0); Mean Corpuscular Hgb Conc 32.8 g/dL (32.0-36.0); Mean Corpuscular Volume 90.3 fL (80.0-100.0); Mean Platelet Volume 9.9 fL (9.4-12.4); Platelet Count 278 K/uL (130-400); RDW Coefficient of Variation 13.2 % (11.5-14.5); RDW Standard Deviation 43.7 fL (36.4-46.3); Red Blood Count 3.61 M/uL (4.20-5.40); White Blood Count 2.98 K/ul (4.8-10.8)
[2023-10-19 07:02] LABS: Alpha 1 Globulin 0.3 g/dL (0.2-0.3); Alpha 2 Globulin 0.6 g/dL (0.5-0.9); Beta-1-Globulin 0.4 g/dL (0.4-0.6); Beta-2-Globulin 0.4 g/dL (0.2-0.5); Gamma Globulin 0.8 g/dL (0.8-1.7); Monoclonal Protein Band 1 DNR g/dL (NONE DETECTED); Monoclonal Protein Band 2 DNR g/dL (NONE DETECTED); Monoclonal Protein Band 3 DNR g/dL (NONE DETECTED); Total Protein 5.4 g/dL (6.1-8.1)
[2023-10-19 07:13] LABS: BUN Creatinine Ratio 9.6 (10-20); Calcium 8.3 mg/dl (8.6-10.3); Creatinine Clr Calc Pharmacy 83.2 ml/min; Est GFR (African American) 104.5 ml/min; Est GFR (Non-African American) 90.1 ml/min; Magnesium 1.8 mg/dl (1.7-2.4); Potassium 3.4 mmol/L (3.5-5.1)
[2023-10-19 09:43] LABS: Prealbumin 14.7 mg/dl (20-40)
--- NOTE | 2023-10-19 12:50 | Discharge Summary ---
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 Patient said couple of weeks ago she had urinary symptoms but that got resolved. Then last several days she is having severe back pain and flank pain and developed fevers of 101 degrees for last few days which prompted her to come to the ER today. Denies any burning micturition currently. No hematuria. Normal bowel movements. No abdominal pain. No chest pain or shortness of breath. Has some headache. No blurred vision. No runny nose. No sore throat. No nausea. Hemodynamics okay. past medical history. As mentioned above. Past surgical history. Colonoscopy. EGD. EGD with endoscopic ultrasound. Knee arthroscopy. Laparoscopic cholecystectomy. Bilateral cataracts. Vaginal hysterectomy. Social history. No smoking. No alcohol use. No drug use. Family history. Maternal grandmother had cancer. Diabetes. CHF. Mother had colon cancer. Heart disorder. Father had diabetes. of heart problems. Admission Exam Per Admitting Provider General- Not in distress. Head- atraumatic Eyes- PERRL. ENT- oropharynx clear Neck- supple, no JVD. Lungs- clear to auscultation no wheezing or crackles. Heart- regular rate and rhythm; no murmur, no gallop. Abdomen- normal bowel sounds, soft, abdominal discomfort present no distension Extremities- no pretibial edema, no erythema seen Neuro- alert, oriented x 3; PERRL, EOMI; no facial palsy; no dysarthria; moves extremities Skin- warm & dry Principal Diagnosis Acute Complicated Cystitis Discharge Exam General: NAD, sitting up in bed, conversing appropriately, very pleasant. A+Ox3, euthymic affect. HEENT: Normocephalic, atraumatic. Conjunctivae normal, anicteric sclerae, oropharynx normal. Respiratory: Normal respiratory effort, lungs clear to auscultation, no wheeze, rales, rhonchi. No accessory muscle use. Cardiovascular: Regular rate, rhythm, no murmur, normal peripheral pulses, no BL E edema. Vessels: No JVD. Abdomen/GI: Normal bowel sounds, soft, tenderness to deep palpation in RLQ + RUQ + LLQ, no hepatosplenomegaly. Extremities/Musculoskeletal: No cyanosis or clubbing, extremities motor strength intact, moves all extremities. Neurologic: PERRL, EOMI, accommodation nl, no face palsy, no dysarthria. Skin: No rashes, normal color, warm/dry. Discharge Data Allergies Allergy/AdvReac Type Severity Reaction Status Date / Time cephalexin Allergy Intermediate Rash Verified 10/13/23 21:55 Penicillins Allergy Intermediate Hives Verified 10/13/23 21:55 Sulfa (Sulfonamide Allergy Intermediate Hives Verified 10/13/23 21:55 Antibiotics) Consultations 10/16/23 10:56 Consult Hematology Routine 10/16/23 13:10 Consult Gastroenterology Routine Ordered Studies 10/13/23 19:55 CT abd pelvis IV con only Stat 10/15/23 14:33 CT Abd and Pelvis [CT abd pelvis IV con only] Routine 10/16/23 14:39 US Mesentary Doppler [US duplex mesenteric] Routine Chest X-Ray 10/13/23 17:56 XR chest 1V not portable CLINICAL HISTORY: Sepsis TECHNIQUE: Single frontal radiograph of the chest was obtained. Comparison: Comparison is made to chest radiograph 01/24/2017 FINDINGS: No lines and tubes are seen. The cardiomediastinal silhouette is normal. The lungs are clear. No evidence of pleural effusion or pneumothorax. IMPRESSION: No acute chest disease. ACT 112: Negative or not required by law. Electronically signed by: Lobo Mills M.D. 10/13/2023 6:52 PM Abdomen/Pelvis CT 10/13/23 19:55 Exam(s): CT ABDOMEN + PELVIS With Contrast IV Amt: 94 ml optiray 320 EXAM: CT Abdomen and Pelvis With Intravenous Contrast CLINICAL HISTORY: sepsis b/l abd pain going to back. TECHNIQUE: Axial computed tomography images of the abdomen and pelvis with intravenous contrast. CTDI is 25.03 mGy and DLP is 1228.91 mGy-cm. Automated exposure control was utilized for the study. A dose lowering technique was utilized adhering to the principles of ALARA. CONTRAST: Patient received 94 ml optiray 320 of IV contrast COMPARISON: CT abdomen and pelvis with contrast dated 09/01/2018 FINDINGS: Lung bases: Nonspecific curvilinear changes at the lung bases. No consolidation. ABDOMEN: Liver: Unremarkable. No mass. Gallbladder and bile ducts: Cholecystectomy. No ductal dilation. Pancreas: Unremarkable. No mass. No ductal dilation. Spleen: Unremarkable. No splenomegaly. Adrenals: Unremarkable. No mass. Kidneys and ureters: Kidneys demonstrate normal enhancement without pyelonephritis. Scattered subcentimeter presumed cortical cysts are too small to completely characterize. No obvious solid thing components. No hydronephrosis or obstructive nephrolithiasis. Stomach and bowel: Stomach is mildly distended with fluid and gas. No gastric mucosal thickening. No evidence for bowel obstruction. No definite asymmetric bowel mucosal abnormality. Minimal stool burden. Scattered diverticulosis without definitive diverticulitis. PELVIS: Appendix: A normal caliber appendix is noted extending along the posterior medial aspect of the cecum in the right lower quadrant. Bladder: Unremarkable. No mass. Reproductive: Unremarkable as visualized. ABDOMEN and PELVIS: Intraperitoneal space: Unremarkable. No free air. No significant fluid collection. Bones/joints: The thoracolumbar spine is intact without acute traumatic injury. No evidence for discitis/osteomyelitis. No dislocation. Soft tissues: Unremarkable. Vasculature: Unremarkable. No abdominal aortic aneurysm. Lymph nodes: Unremarkable. No enlarged lymph nodes. IMPRESSION: 1. The thoracolumbar spine is intact without acute traumatic injury. No evidence for discitis/osteomyelitis. No significant paraspinal soft tissue abnormality identified. 2. Nonspecific curvilinear changes at the lung bases. Favor subsegmental atelectasis. Subtle infection involving the left lower lobe is difficult to entirely exclude. Please correlate clinically. No pleural effusion. 3. No evidence for bowel obstruction. No definite asymmetric bowel mucosal abnormality. Minimal stool burden. Scattered diverticulosis without definitive diverticulitis. No free intraperitoneal fluid or pneumoperitoneum. Electronically signed by: Jed Nichols MD 10/13/23 23:33 PM Abdomen/Pelvis CT 10/15/23 14:[address] WITH IV CONTRAST CT DOSE: 1372.04 mGy.cm HISTORY: worsening abdominal pain TECHNIQUE: Multiaxial CT images of the abdomen and pelvis were performed following the use of intravenous contrast. A dose lowering technique was utilized adhering to the principles of ALARA. COMPARISON STUDY: Abdomen and pelvis CT 10/13/2023. FINDINGS: Patchy densities within the lower lobes posteriorly have slightly progressed. This could represent atelectasis or a pneumonia. This is most pronounced on the left. No pneumoperitoneum. No pneumatosis. No acute fractures identified. Prior cholecystectomy. Mild central intrahepatic bile duct dilatation which is slightly progressed. This could be due to the patient's postcholecystectomy state. However, recommend correlation with LFTs. There is normal caliber common bile duct. No hepatic or splenic masses. The adrenal glands unremarkable. A few subcentimeter hypodense bilateral renal lesions are again noted. These are to be too small to characterize but statistically represent cysts. No hydronephrosis. The main portal vein is patent. There is an 11 mm hypodense lesion within the pancreatic tail, unchanged. 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 Normal caliber abdominal aorta. No retroperitoneal or pelvic lymphadenopathy. Bladder wall thickening which may be due to underdistention. Prior hysterectomy. Colonic diverticulosis. No evidence for acute diverticulitis. No bowel wall thickening or obstruction. Normal appendix. IMPRESSION: 1. No bowel wall thickening or obstruction. 2. Normal appendix. 3. Bladder wall thickening which may be due to underdistention. Recommend correlation with urinalysis to exclude a cystitis. 4. Patchy airspace opacities within the lower lobes posteriorly have progressed. This could represent atelectasis or a pneumonia. 5. Mild intrahepatic bile duct dilatation. This is likely due to the patient's post cholecystectomy state. However, recommend correlation with LFTs. ACT 112: Negative or not required by law. Electronically signed by: Casey Betancourt M.D. 10/15/2023 3:18 PM Mesenteric US 10/16/23 14:39 US duplex mesenteric HISTORY: 57 years-old Female abdominal pain acute generalized abdominal pain COMPARISON: CT 10/15/2023 TECHNIQUE: Multiple real-time sonographic images of the mesenteric vessels were obtained assessing grayscale appearance, color and spectral flow FINDINGS: No arterial occlusion or elevated peak systolic velocities identified within the celiac artery, superior or inferior mesenteric arteries. Normal flow within the abdominal aorta, peak systolic velocities of 98 cm/s. IMPRESSION: Normal exam. ACT 112: Negative or not required by law. The above report was generated using voice recognition software. It may contain grammatical, syntax or spelling errors. Electronically signed by: Glen Bran M.D. 10/17/2023 6:55 AM Hospital Course (1) Cystitis: Bird Padilla is a 57y/o F with PMH significant for hyperlipidemia, pancreatic cyst, chronic sinusitis, vasomotor rhinitis, diastolic dysfunction, diverticulosis of large intestine, partial symptomatic epilepsy with simple partial seizures, migraine, postconcussion syndrome, depression, GERD, generalized anxiety disorder, history of pulmonary embolus, history of subarachnoid hemorrhage and PTSD who presented with bilateral flank and back pain + fevers with concern for complicated UTI. Imaging negative for pyelonephritis. Initially continued on Levaquin with symptomatic improvement. However, as of 10/14, patient with increased lower abdominal quadrant pains not consistent with UTI -- discomfort is reportedly similar to prior episodes of diverticulitis. Patient reports worse with eating/postprandial pain. Acute Complicated Cystitis Admitting UA positive for infection. CTAP x 2 negative for pyelonephritis. Pt received 5 days of IV aztreonam while she was admitted. Final urine culture grew E. coli (10/12). Preliminary blood cultures still w/ NGTD at time of discharge. Spoke w/ pharmacy - Pt being sent home w/ 5-day course of Macrobid 100mg BID; Goal to complete total of 10-day course of ABX therapy due to no evidence of pyelonephritis. Abdominal Pain History of Diverticulitis, Large Colon Diverticulosis Pt was c/o RLQ and mid to upper R quadrant while hospitalized. She was also experiencing some mild LLQ pain as well while admitted. Pt w/ previous history of laparoscopic cholecystectomy. LFTs and lipase both WNL, pt has remained afebrile since 10/15. Repeat CTAP on 10/14 showed the following: i. No bowel wall thickening or obstruction. ii. Normal appendix, bladder wall thickening. Pt had an unremarkable colonoscopy in 2021 w/ [facility]. Discontinued anaerobic coverage w/ Flagyl on 10/16 2/2 low suspicion of GI process occurring. Pt tolerated soft foods/minced + moist diet at time of discharge; Abd pain still ongoing at time of discharge but was significantly improved. GI was consulted and followed the pt throughout her admission; Mesenteric doppler was ordered by GI and ultimately came back normal - r/o ischemic colitis. Pt was not a candidate for EGD while inpatient 2/2 acute hematologic concerns. Pt was ultimately put on PRN Levsin 0.125mg by GI - which has been improving her abd pain; Will prescribe the Levsin at time of discharge per patient's request. [facility]/further work-up at time of discharge. Bicytopenia Iron Deficiency Anemia Anemia and leukopenia on presentation; Lyme testing was ultimately negative. Pt not immunocompromised; However, neutropenia persisted throughout admission. Pt was recently started on an iron supplement - can continue at time of discharge. Peripheral smear was performed, results as below: "The peripheral smear is remarkable for a normocytic anemia and leukopenia. Iron studies show low iron which is at least a contributing factor for the anemia. A slight rouleaux is present, which can be seen in reactive conditions; however, if concern for an underlying issue is present then SPEP is recommended to exclude a plasma cell neoplasm. No evidence of myelodysplasia is seen." Serum protein electrophoresis was also performed, results as below: "Evaluation reveals an isolated decrease in albumin. This pattern is suggestive of decreased protein synthesis or protein loss. Consider ordering pre-albumin quantitation." Prealbumin was low at 14.7 on 10/18. Heme/onc saw and evaluated pt on 10/15; Recommended pt has a bone marrow biopsy performed. Unfortunately, pt could not have the bone marrow biopsy done while admitted 04/28 staff unavailability. Pt has been scheduled for an outpatient bone marrow biopsy on 10/26. She will be contacted following discharge to schedule a follow-up appt with Dr. Bateman at [facility]. Multiple Electrolyte Abnormalities Hypophosphatemia, Hypokalemia & Hypomagnesemia Phosphorus was closely monitored and repleted PRN; Phosphorus level WNL (3.0) at time of discharge. Potassium was closely monitored and repleted PRN; Potassium was 3.4 on day of discharge, but was ultimately repleted prior to discharge. Magnesium was closely monitored and repleted PRN; Magnesium level WNL (1.8) at time of discharge. Depression, ALEJO & PTSD: Can continue home medications at time of discharge. 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 Hyperlipidemia: Can continue statin therapy and fenofibrate at time of discharge. PCP: Yolande Aguilar, DO Disposition: PT signed off on the patient and she is being discharged to home. Patient seen in collaboration with Dr. oMmin. Please see addendum. I spent a total of 45 minutes coordinating, documenting, and providing care for this patient excluding time spent in the performance of separately billed services. This included personally reviewing all current laboratories and imaging studies, medical reconciliation, outpatient chart review and discussion with specialists. This chart was completed in part utilizing Speech Voice Recognition Software. Grammatical errors, random word insertions, pronoun errors, and incomplete sentences are an occasional consequence of this system due to software limitations, ambient noise, and hardware issues. Any formal questions or concerns about the content, text, or information contained within the body of this dictation should be directly addressed to the provider for clarification. Home Health Attestation I certify that this patient is under my care and that I, or a physicians surgical services assistant working with me, had a face to-face encounter that meets the home health [id number] encounter requirements with this patient. The encounter with the patient was in whole, or in part, for the following medical condition, which is the primary reason for home health care (list medical condition): I certify that, based on my findings, the following services are medically necessary home health services: My clinical findings support the need for the above services because: Further, I certify that my clinical findings support that this patient is homebound (i.e. absences from home require considerable and taxing effort and are for medical reasons or nondenominational services or infrequently or of short duration when for other reasons) because: Certification for Home Health Services: Based on the above findings, I certify that this patient is confined to the home and needs intermittent fpc care, physical therapy and/or speech therapy or continues to need occupational therapy. The patient is under my care, and I have initiated the establishment of the plan of care. This patient will be followed by a physician who will periodically review the plan of care. Total Time Total Time Spent Total Time Spent (In Minutes): 45 Discharge Plan Discharge Items Patient Disposition: Home - Self-Care Reason For Visit: Acute Complicated Cystitis, C/F Pyelonephritis Discharge Diagnosis: Acute Complicated Cystitis Activity: Resume your previous activity Non-emergency contact: Primary Care Provider Call non-emergency contact if: you have any medication questions, your symptoms worsen, your pain is not controlled and you have a fever Follow-up/Referrals: Yolande Aguilar, DO [Primary Care Provider] - (Date & Time 10/26/2023 3:00 PM Provider Kalpana Arriaga CRNP Department Family Practice [facility] ) Chapis Arriaza CRNP [Nurse Practitioner] - Robb Bateman MD [Physician] - Diet: Regular Diet Texture: Mechanical soft (ground) Diet Comment: Please proceed with a soft diet like we discussed. Addtl Attending Provider Instructions: You were admitted to the hospital secondary to back pain and fevers. You were ultimately found to have acute cystitis, also known as a bladder infection. We treated you with IV antibiotics while you were admitted. You are being sent home with a 5-day course of oral antibiotic therapy. Please take the antibiotic [Macrobid] as prescribed and complete the entire course. You developed abdominal pain while you were in the hospital. We ultimately scanned your abdomen and found no acute concerns. You were seen and evaluated by the gastrointestinal (GI) team here at [facility]. Unfortunately, you could not have any scope procedures done due to your blood count being low. GI did start you on Levsin, which is a medication to help your abdominal pain. Please continue to take this medication as prescribed for abdominal pain. You will be contacted by [facility] to schedule a follow-up appointment. Please attend this appointment for further work-up regarding your ongoing abdominal pain. You were also seen and evaluated by Dr. Bateman from Hematology/Oncology at [facility]. He recommended that you have a bone marrow biopsy done due to your low white blood cell and red blood cell counts. You are scheduled to have your bone marrow biopsy on November 01 at 10:30AM. You will also be contacted by the [facility] here [facility] to schedule a follow-up appointment with Dr. Bateman. Please attend this appointment to further discuss the results of your bone marrow biopsy when they are made available. We also started you on an iron supplement due to your low hemoglobin level. Please take the iron (ferrous sulfate) supplement as prescribed. You were found to have a low phosphorus level as well during your hospitalization. Therefore, we started you on a potassium phosphate supplement while you were admitted. Please continue to take the potassium phosphate supplement as prescribed. You will need to have your phosphorus level checked next week by your primary care provider (PCP). You are also scheduled to see your PCP on October 25 at 3:00PM. Please attend this appointment as scheduled. Pending Studies at Discharge: No Stand-Alone Forms: [facility], Smoking Cessation Medications and DC Order Prescriptions: New hyoscyamine sulfate [Levsin] 0.125 mg Tablet 0.125 mg PO Q4H PRN (Reason: abdominal pain) Qty: 30 0RF ferrous sulfate 325 mg (65 mg iron) Tablet,Delayed Release (Dr/Ec) 325 mg PO QAM Qty: 30 0RF Phospha 250 Neutral 250 mg Tablet 1 tab PO DAILY Qty: 30 0RF nitrofurantoin monohyd/m-cryst [Macrobid] 100 mg capsule 100 mg PO BID 5 Days Qty: 10 0RF Rx Instructions: must administer with a meal/food ondansetron 4 mg tablet,disintegrating 4 mg PO Q8H PRN (Reason: nausea and vomiting) 5 Days Qty: 30 0RF Continued fluoxetine 40 mg capsule 40 mg PO QAM Rx Instructions: This dose is per pt lamotrigine 150 mg tablet 150 mg PO AMHS prazosin 1 mg capsule 1 mg PO HS valacyclovir 500 mg tablet 500 mg PO BID PRN (Reason: Flare ups) prazosin 5 mg capsule 5 mg PO HS Rx Instructions: Take with a 2mg cap & a 1mg cap = 8 mg lorazepam 0.5 mg tablet 0.5 mg PO DAILY PRN (Reason: Anxiety) trazodone 100 mg tablet 250 mg PO HS cyanocobalamin (vitamin B-12) 1,000 mcg Tablet, Sublingual 1,000 mcg SUBLINGUAL DAILY azelastine 137 mcg (0.1 %) spray,non-aerosol 1 spray INTRANASAL [facility] Excedrin Migraine 250-250-65 mg Tablet 1 tab PO Q6H PRN (Reason: Migraine Headache) prazosin 2 mg capsule 2 mg PO HS buspirone 15 mg tablet 15 mg PO AMPM rosuvastatin 5 mg tablet 5 mg PO QAM fenofibrate 160 mg tablet 160 mg PO QAM Discharge Orders: Discharge Order (Routine); Ordered 10/19/23 Ordered By: Abida Christine/Other Patient Handouts: Neutropenia, ED Cystitis Female Adult, Bone M arrow Biopsy Admission Data Admit Date/Time: 10/13/23 23:08 Attending Provider: Fatemeh Momin Admit Provider: Robbin Hernadez Primary Care Provider: Yolande Aguilar Other Providers: Robb Btaeman; Jaswant Valerio Other Interventions: Discharge Summary Assessment (RN) Last Done: 10/19/23 15:57 Supervising Physician Co-Signing Physician Notes Pt was seen and examined by myself, Fatemeh Momin MD on the day of service. Care was coordinated with Abida Zaragoza PA-C. 57yoF currently being treated for acute cystitis and chronic abdominal/flank pain. Denies acute concerns on day of discharge, stable Pt with allergies to penicillin, keflex and Sulfa meds- discharged with 5 more days of po macrobid based on sensitivities. Appreciate GI recs-discharged with po Levsin for abd pain with close GI followup. Outpt bone biopsy scheduled with heme/onc followup for noted leukopenia and anemia. Electrolyte abnormalities, repleted as needed. Close PCP followup for continued monitoring and supplementation as needed. Otherwise as above. I spent a total [id number] coordinating, documenting, and providing care for this patient excluding time spent in the performance of separately billed services
[2023-10-19] MEDS: POTASSIUM CHLORIDE CRTAB 20 MEQ TABCR PO STA (16:06)
== END 2023-10-19 16:51 | disposition home or self-care (01) | DRG 872 ==
LOC: ED 17:41 → 3W 23:08 → SUATTDRO 23:08 → 3W 10-14 00:31